=== PATIENT | female | born 1930 | race Caucasian/White ===

== ENCOUNTER 2016-08-03 16:18 | Emergency (ER) | payer MEDICARE, BC ==
[2016-08-03] MEDS ORDERED: SODIUM CHLORIDE 0.9% 500 ML IV ONE ×3 (17:19→19:45)
[2016-08-03] MEDS ORDERED: METOPROLOL 5 MG/5 ML VIAL IVP STA (17:20)
[2016-08-03] MEDS ORDERED: METOPROLOL 5 MG/5 ML VIAL IVP ONE (17:41)
[2016-08-03] MEDS ORDERED: METOPROLOL TARTRATE 50 MG TABLET PO STA (19:04)
== END 2016-08-03 20:50 | disposition home or self-care (01) ==
DX: I48.0 Paroxysmal atrial fibrillation (principal); J06.9 Acute upper respiratory infection, unspecified; I10 Essential (primary) hypertension; E03.9 Hypothyroidism, unspecified; Z79.82 Long term (current) use of aspirin
CPT/HCPCS: 36415; 71010; 80053; 83690; 83735; 83880; 85025; 93005; 93010; 96361; 96374; 99284; A9270

== ENCOUNTER 2016-08-26 11:14 | Outpatient (CLI) | payer MEDICARE, BC | END 2016-08-26 11:15 | disposition home or self-care (01) | DX: I48.91 Unspecified atrial fibrillation (principal) ==

== ENCOUNTER 2016-09-29 13:10 | Outpatient (CLI) | payer MEDICARE, BC | END 2016-09-29 13:11 | disposition home or self-care (01) | DX: N18.9 Chronic kidney disease, unspecified (principal) ==

== ENCOUNTER 2016-10-14 13:27 | Emergency (ER) | payer MEDICARE, BC ==
[2016-10-14] MEDS ORDERED: COLCHICINE 0.6 MG TABLET PO STA (14:57)
== END 2016-10-14 15:15 | disposition home or self-care (01) ==
DX: M10.9 Gout, unspecified (principal); I11.0 Hypertensive heart disease with heart failure; I50.9 Heart failure, unspecified; E78.00 Pure hypercholesterolemia, unspecified; E03.9 Hypothyroidism, unspecified; I48.91 Unspecified atrial fibrillation; K21.9 Gastro-esophageal reflux disease without esophagitis; Z79.82 Long term (current) use of aspirin; Z86.73 Personal history of transient ischemic attack (TIA), and cerebral infarction without residual deficits
CPT/HCPCS: 73630; 99283; A9270

== ENCOUNTER 2017-02-25 09:16 | Inpatient (IN) | payer MEDICARE, BC ==
[2017-02-25] MEDS ORDERED: SODIUM CHLORIDE FLUSH 0.9% 10 ML SYRINGE IVP ONE (09:48)
[2017-02-25] MEDS ORDERED: SODIUM CHLORIDE 0.9% 1,000 ML IV ONE ×2 (09:54→11:13)
[2017-02-25] MEDS ORDERED: METOPROLOL 5 MG/5 ML VIAL IVP STA (09:54)
[2017-02-25] MEDS ORDERED: SODIUM CHLORIDE 0.9% 250 ML IV ONE (10:00)
[2017-02-25 10:02] LABS: BASOPHILS % (AUTO) 0.5 %; EOSINOPHILS # (AUTO) 0.2 10^3/uL (0.0-0.7); EOSINOPHILS % (AUTO) 1.7 %; HCT - HEMATOCRIT 41.2 % (37.0-47.0); HGB - HEMOGLOBIN 13.9 g/dL (12.0-16.0); LYMPHOCYTES # (AUTO) 0.5 10^3/uL (1.5-3.5); LYMPHOCYTES % (AUTO) 5.6 %; MEAN CORPUSCULAR HEMOGLOBIN 34.2 pg (27.0-31.0); MEAN CORPUSCULAR HGB CONC 33.6 g/dL (32.0-36.0); MEAN CORPUSCULAR VOLUME 101.8 fL (81.0-99.0); MEAN PLATELET VOLUME 7.7 fL (7.9-10.8); MONOCYTES # (AUTO) 1.1 10^3/uL (0.0-1.0); MONOCYTES % (AUTO) 11.8 %; NEUTROPHILS # (AUTO) 7.5 10^3/uL (1.5-6.6); NEUTROPHILS % (AUTO) 80.4 %; NUCLEATED RED BLOOD CELLS AUTO 0.1 /100WBC; RED BLOOD COUNT 4.05 10^6/uL (4.20-5.40); RED CELL DISTRIBUTION WIDTH 14.5 % (12.0-15.0); UNCORRECTED WHITE BLOOD COUNT 9.3 x10^3/uL; WHITE BLOOD COUNT 9.3 x10^3/uL (4.8-10.8)
[2017-02-25 10:14] LABS: BILIRUBIN,TOTAL 0.9 mg/dL (0.2-1.0); CALCIUM 9.4 mg/dL (8.5-10.3); CREATININE 1.3 mg/dL (0.4-1.0); POTASSIUM 4.7 mmol/L (3.5-5.0); TOTAL PROTEIN 7.5 g/dL (6.7-8.2)
--- NOTE | 2017-02-25 10:34 | ED Physician Documentation ---
PD HPI DYSPNEA - Stated complaint Stated Complaint: SOA - Chief complaint Chief Complaint: Resp - History obtained from History obtained from: Patient, EMS - History of Present Illness Timing - onset: How many weeks ago (1) Timing - onset during: Exertion Timing - details: Still present Worsened by: Exertion Associated symptoms: No: Chest pain / discomfort Similar symptoms before: Diagnosis (History of congestive heart failure and atrial fibrillation.) - Additional information Additional information: The patient is an 86-year-old female who presents with shortness of breath that has been gradually getting worse over the past week. It is worse when walking. She denies chest pain, cough, or fever. She denies orthopnea. She has history of CHF and atrial fibrillation. She takes one baby aspirin daily. She reports a history of similar symptoms when hospitalized for congestive heart failure in May 2016. She reports a similar symptoms also in July 2016. Social history is significant for the patient living by herself. Review of her medical record reveals cardiac echo in May 2016, revealing mitral valve insufficiency with severe pulmonary hypertension. Review of Systems Constitutional: denies: Fever Ears: denies: Tinnitus/ringing Nose: denies: Congestion Throat: denies: Sore throat Cardiac: denies: Chest pain / pressure Respiratory: reports: Dyspnea. denies: Cough GI: denies: Abdominal Pain, Nausea, Vomiting : denies: Dysuria Skin: denies: Rash Musculoskeletal: denies: Back pain, Extremity swelling Neurologic: denies: Focal weakness, Numbness, Headache PD PAST MEDICAL HISTORY - Past Medical History Past Medical History: Yes Cardiovascular: Congestive heart failure, Hypertension, High cholesterol, Atrial fibrillation, Valve disorder (Mitral valve insufficiency) Respiratory: Shortness of breath, Other (Pulmonary hypertension) Neuro: CVA, Head injury, Fainting Endocrine/Autoimmune: HyPOthyroidism GI: GERD : None HEENT: Chronic sinusitis Psych: None Musculoskeletal: Osteoarthritis Derm: None - Past Surgical History Past Surgical History: Yes Ortho: Hip replacement - Present Medications Home Medications: Ambulatory Orders Medication Instructions Recorded Confirmed Aspirin [Aspir 81] 81 mg PO DAILY 09/20/14 02/25/17 Esomeprazole Magnesium [Nexium] 40 mg PO DAILY 09/20/14 02/25/17 Levothyroxine [Synthroid] 50 mcg PO DAILY 09/20/14 02/25/17 Methotrexate 5 mg PO Q7D 09/20/14 02/25/17 Simvastatin 40 mg PO QPM 09/20/14 02/25/17 Furosemide 40 mg PO DAILY 08/03/16 02/25/17 Spironolactone 12.5 mg PO DAILY 08/03/16 02/25/17 Verapamil HCl [Verapamil ER] 240 mg PO DAILY 10/14/16 02/25/17 Metoprolol Tartrate [Lopressor] 100 mg PO BID 02/25/17 02/25/17 - Allergies Allergies/Adverse Reactions: Allergies Allergy/AdvReac Type Severity Reaction Status Date / Time No Known Drug Allergies Allergy Verified 02/25/17 09:30 - Social History Does the pt smoke?: No Smoking Status: Never smoker Does the pt drink ETOH?: Yes Does the pt have substance abuse?: No - Immunizations Immunizations are current?: Yes - POLST Patient has POLST: No PD ED PE NORMAL - Vitals Vital signs reviewed: Yes (Hypotensive with a blood pressure of 88/54.) - General General: Alert and oriented X 3, Well developed/nourished - HEENT HEENT: Atraumatic, EOMI, Pharynx benign - Neck Neck: Supple, no meningeal sign, No adenopathy, No JVD - Cardiac Cardiac: Other (Rapid rate, irregular rhythm, with 1/6 murmur.) - Respiratory Respiratory: Clear bilaterally, Other (Low pulse oximetry 88% on room air. It improves to 94% on 2 L supplemental oxygen.) - Abdomen Abdomen: Soft, Non tender - Back Back: No CVA TTP - Derm Derm: No rash - Extremities Extremities: No edema, No calf tenderness / cord - Neuro Neuro: Alert and oriented X 3, No motor deficit, No sensory deficit Results - Vitals Vitals: Vital Signs - 24 hr 02/25/17 02/25/17 02/25/17 09:20 09:50 10:20 Temperature 36.2 C L Heart Rate 60 86 84 Respiratory 24 Rate Blood Pressure 88/45 L 92/57 L O2 Saturation 100 95 95 02/25/17 02/25/17 02/25/17 10:53 11:36 12:24 Temperature Heart Rate 80 72 Respiratory 16 16 16 Rate Blood Pressure 83/48 L 104/62 93/63 O2 Saturation 93 97 96 02/25/17 02/25/17 02/25/17 14:52 18:00 18:20 Temperature Heart Rate 77 107 H 121 H Respiratory 24 22 Rate Blood Pressure 110/67 139/71 H 118/89 H O2 Saturation 94 92 94 Oxygen O2 Source Nasal cannula - EKG (time done) 09:29 Rate: Rate (enter#) Rhythm: Atrial flutter, Wide complex tachycardia [place]: LAD Intervals: LBBB Ischemia: Other (J-point elevation) Compare to prior EKG: Unchanged from prior EKG Computer interpretation: Disagree with computer - Labs Labs: Laboratory Tests 02/25/17 02/25/17 02/25/17 07:45 09:45 09:45 WBC 9.3 RBC 4.05 L Hgb 13.9 Hct 41.2 MCV 101.8 H MCH 34.2 H MCHC 33.6 RDW 14.5 Plt Count 344 MPV 7.7 L Neut # 7.5 H Lymph # 0.5 L [place] # 1.1 H Eos # 0.2 Baso # 0.0 Absolute Nucleated RBC 0.01 Nucleated RBCs 0.1 D-Dimer Sodium 134 L Potassium 4.7 Chloride 96 L Carbon Dioxide 25 Anion Gap 13.0 BUN 33 H Creatinine 1.3 H Estimated GFR (MDRD) 39 L Glucose 111 H Calcium 9.4 Total Bilirubin 0.9 AST 21 ALT 12 Alkaline Phosphatase 68 Troponin I B-Natriuretic Peptide 611 H Total Protein 7.5 Albumin 3.7 Globulin 3.8 Albumin/Globulin Ratio 1.0 Lipase 49 TSH Urine Color Urine Clarity Urine pH Ur Specific [place] Urine Protein Urine Glucose (UA) Urine Ketones Urine Occult Blood Urine Nitrite Urine Bilirubin Urine Urobilinogen Ur Leukocyte Esterase Urine RBC Urine WBC Ur Squamous Epith Cells Urine Bacteria Ur Microscopic Review Urine Culture Comments 02/25/17 02/25/17 02/25/17 09:45 09:45 09:45 WBC RBC Hgb Hct MCV MCH MCHC RDW Plt Count MPV Neut # Lymph # [place] # Eos # Baso # Absolute Nucleated RBC Nucleated RBCs D-Dimer 216.2 Sodium Potassium Chloride Carbon Dioxide Anion Gap BUN Creatinine Estimated GFR (MDRD) Glucose Calcium Total Bilirubin AST ALT Alkaline Phosphatase Troponin I < 0.04 B-Natriuretic Peptide Total Protein Albumin Globulin Albumin/Globulin Ratio Lipase TSH 2.72 Urine Color Urine Clarity Urine pH Ur Specific [place] Urine Protein Urine Glucose (UA) Urine Ketones Urine Occult Blood Urine Nitrite Urine Bilirubin Urine Urobilinogen Ur Leukocyte Esterase Urine RBC Urine WBC Ur Squamous Epith Cells Urine Bacteria Ur Microscopic Review Urine Culture Comments 02/25/17 15:00 WBC RBC Hgb Hct MCV MCH MCHC RDW Plt Count MPV Neut # Lymph # [place] # Eos # Baso # Absolute Nucleated RBC Nucleated RBCs D-Dimer Sodium Potassium Chloride Carbon Dioxide Anion Gap BUN Creatinine Estimated GFR (MDRD) Glucose Calcium Total Bilirubin AST ALT Alkaline Phosphatase Troponin I B-Natriuretic Peptide Total Protein Albumin Globulin Albumin/Globulin Ratio Lipase TSH Urine Color YELLOW Urine Clarity CLEAR Urine pH 5.5 Ur Specific [place] <=1.005 Urine Protein NEGATIVE Urine Glucose (UA) NEGATIVE Urine Ketones NEGATIVE Urine Occult Blood NEGATIVE Urine Nitrite NEGATIVE Urine Bilirubin NEGATIVE Urine Urobilinogen 0.2 (NORMAL) Ur Leukocyte Esterase TRACE H Urine RBC None Seen Urine WBC 0-3 Ur Squamous Epith Cells MANY Squamous H Urine Bacteria Few Ur Microscopic Review INDICATED Urine Culture Comments NOT INDICATED - Rads (name of study) 1-view CXR Radiology: Prelim report reviewed, EMP read contemporaneously, See rad report ( No definite acute abnormality of the chest.) PD MEDICAL DECISION MAKING - ED course Complexity details: reviewed old records, reviewed results, re-evaluated patient , considered differential, d/w patient, d/w physician practice consultant ED course: The patient's presentation is significant for dyspnea with low pulse oximetry, most likely due to to pulmonary hypertension with congestive heart failure. When she initially presented her lung sounds were clear and with an elevated BUN of 33 with a creatinine of 1.3, and no pedal edema, I felt dehydration was more likely, especially given that she was tachycardic and hypotensive. Normal saline bolus of 250 mL was administered IV, and she felt slightly improved. An additional liter of normal saline was administered IV over a period of one hour , causing her dyspnea to worsen, and repeat auscultation of her lungs to reveal faint crackles at the bases. Subsequently a BNP came back elevated at 611. Given her history of atrial fibrillation without anticoagulation, pulmonary embolus was considered. However her d-dimer is normal at 216. CT pulmonary angiogram was not performed because of the patient's renal insufficiency. Lasix 40 mg administered IV, resulting in diaphoresis, with 3 times up to the bedside commode over the next 45 minutes. She remained dyspneic, with pulse oximetry in the high 80s on room air. I discussed her condition with Dr. Orellana, who admitted her for further evaluation and treatment. Departure - Departure Disposition: [facility] DC/Xfer Clinical Impression: Pulmonary hypertension Congestive heart failure Qualifiers: Congestive heart failure type: unspecified congestive heart failure type Congestive heart failure chronicity: acute on chronic Qualified Code(s): I50.9 - Heart failure, unspecified Atrial fibrillation Qualifiers: Atrial fibrillation type: chronic Qualified Code(s): I48.2 - Chronic atrial fibrillation Condition: Stable Discharge Date/Time: 02/25/17 19:17
--- NOTE | 2017-02-25 11:10 | XRAY Preliminary Report ---
Exam: XR Chest 1 View IMPRESSION: No definite acute abnormality of the chest. [facility] SITE ID: [id number]
--- NOTE | 2017-02-25 11:12 | XRAY Report ---
EXAM: CHEST RADIOGRAPHY EXAM DATE: 02/25/2017 10:36 AM. CLINICAL HISTORY: Dyspnea. COMPARISON: Single view 08/03/2016. TECHNIQUE: 1 view. FINDINGS: Lungs/Pleura: No definite acute or focal infiltrate or ladi pulmonary edema. No pleural effusion or pneumothorax. Mediastinum: Within exam limitations, cardiomediastinal contour is normal. Other: Right shoulder degenerative change and acromiohumeral space narrowing, compatible rotator cuff pathology or tear, without change. IMPRESSION: No definite acute abnormality of the chest. [facility] Referring Provider Line: [phone] SITE ID: [id number]
[2017-02-25] MEDS ORDERED: MAG HYDROX/AL HYDROX/SIMETH 30 ML UDC PO STA (13:58)
[2017-02-25 15:27] LABS: BILIRUBIN,URINE NEGATIVE (NEGATIVE); PH,URINE 5.5 PH (5.0-7.5)
[2017-02-25 15:38] LABS: UA w/ MICROSCOPIC CHARGE YES
[2017-02-25 15:40] LABS: UR CULTURE IF IND NOT INDICATED; WBC,URINE 0-3 /HPF (0-5)
[2017-02-25] MEDS ORDERED: FUROSEMIDE 40 MG/4 ML VIAL IVP STA (17:07)
[2017-02-25] MEDS ORDERED: FUROSEMIDE 40 MG/4 ML VIAL ONE (17:16)
[2017-02-25] MEDS ORDERED: ONDANSETRON 4 MG/2 ML VIAL IVP PRN (18:29)
[2017-02-25] MEDS ORDERED: PROCHLORPERAZINE 10 MG/2 ML VIAL IVP PRN (18:29)
[2017-02-25] MEDS ORDERED: MORPHINE 2 MG/ML CARPUJECT IVP PRN (18:29)
[2017-02-25] MEDS ORDERED: ZOLPIDEM 5 MG TABLET PO PRN (18:29)
[2017-02-25] MEDS: ACETAMINOPHEN 325 MG TABLET PO PRN (19:52)
[2017-02-25] MEDS ORDERED: METOPROLOL TARTRATE 50 MG TABLET PO SCH ×2 (21:00)
--- NOTE | 2017-02-25 21:14 | HISTORY & PHYSICAL EXAMINATION ---
Chief Complaint - Chief Complaint Chief Complaint: shortness of breath History of Present Illness - Admitted From Admitted From:: Emergency Department - History Obtained From Records Reviewed: ED report, previous H&P, prior echocardiogram History obtained from: Patient - History of Present Illness HPI Comment/Other: 86-year-old female with past medical history heart failure, atrial fibrillation , and pulmonary hypertension. She presented to the emergency department today because of a lack of energy for the past 2 weeks and weakness in her legs. Over the past week she has noticed increasing shortness of breath with activity; she must stop and rest for 10-15 minutes to "catch her breath" after walking from her bedroom to the kitchen which is "across the house." She is unable to perform her daily chores without resting which she previously had no issues completing. She does report 1-2 episodes where she felt dizzy and had to grab onto a chair to balance herself otherwise she denies chest pain, diaphoresis, cough, lightheadedness, or orthopnea. An echocardiogram from 07/28/2015 was reviewed and showed a normal left ventricular size with preserved ejection fraction of 65%; severe diastolic dysfunction with a severely dilated left atrium, severe pulmonary hypertension ( PASP 75 mm Hg) and mitral insufficiency. Her expanding machine operator is Dr. Barron; unable to review most recent visit at this time. In the emergency department she was hypotensive with a systolic blood pressure of 84; she received an initial 250 ml normal saline bolus with slight improvement in her shortness of breath; a subsequent liter of normal saline was given over an hour which worsened her shortness of breath, she developed faint crackles in her lower lung still and room air oxygen saturations were in the high 80's. Her subsequent BtNP was 611 and she received 40 mg IV furosemide with good response (up to bedside commode x 3). Pulmonary embolus was considered per her shortness of breath and atrial fibrillation without anticoagulation; d-dimer was 216.2. Upon history and physical examination she had a fever 38.8 without an obvious source of infection. Blood cultures and lactic acid were drawn. She denies fevers or chills at home, no urinary symptoms, cough, abdominal pain, nausea/ vomiting, or diarrhea. Urinalysis and chest xray were negative. She reports gout to her right great toe; assessed toe for gout versus septic arthritis; region with mild tenderness to palpation, no swelling or redness. She reports decreased appetite and subsequent 25 lb weight loss since May 2016; considered malignancy: abdominal/pelvic CT scan if continued fevers during hospitalization otherwise this can be completed as an outpatient if further concern. During hospitalization she will be monitored overnight on observation status. Chest CT utilizing the interstitial lung disease protocol will be completed to examine for further causes of her pulmonary hypertension and an echocardiogram. At this point it appears her acute on chronic heart failure may be iatrogenic from the fluids administered. No further intravenous fluids will be administered and response from the 40 mg intravenous furosemide will be monitored. Upon discharge and review of echocardiogram it will be prudent to call and discuss her hospitalization with her PCP, Dr. Easley to determine if her goals of care have been discussed or if there is a previously established treatment plan for worsening symptoms. Review of Systems - Constitutional Constitutional: reports: Fatigue (noticed over the past 2 weeks.), Fever (She denies fevers at home, but has a temperature of 38.2; she feels "hot" but denies feeling like she has a fever at this time.), Weakness ("In my legs" for the past 2 weeks.), Poor appetite (Decreased appetite since May 2016.), Weight loss (Lost 25 lbs since May 2016.). denies: Chills, Malaise, Diaphoresis - Eyes Eyes: reports: Other (Appointment with opthamologist on Tuesday.). denies: Pain , Blurred vision, Spots in vision, Vision loss - Ears, Nose & Throat Ears, Nose & Throat: reports: Postnasal drainage. denies: Ear pain, Hearing loss, Vertigo, Dentures, Sore throat, Mouth lesions, Dental decay (attributes to seasonal allergies.), Dental pain - Cardiovascular Cariovascular: reports: Irregular heart rate, Lightheadedness (x 2 when she had to grab onto a chair.), Exertional dyspnea, Decr. exercise tolerance (x 2 weeks. ). denies: Palpitations, Chest pain, Edema, Syncope, Orthopnea - Respiratory Respiratory: reports: Cough (occasional cough she attributes to nasal drainage from her seasonal allergies.). denies: Sputum production, Wheezing, Orthopnea, SOB at rest - Gastrointestinal Gastrointestinal: reports: Constipation (normally has hard stools every 2-3 days.). denies: Abdominal pain, Abdominal distention, Diarrhea, Change in bowel habits, Nausea, Vomiting - Genitourinary Genitourinary: denies: Dysuria, Frequency, Urgency, Incontinence, Flank pain - Musculoskeletal Musculoskeletal: reports: Gout (Right great toe), Joint pain (Right shoulder - increases with use.). denies: Muscle pain, Back pain - Integumentary Integumentary: denies: Rash, Lesions, Dryness - Neurological Neurological: reports: Memory problems (hard time recalling names). denies: Focal weakness, Headache, Dizziness, Numbness - Psychiatric Psychiatric: denies: Depression, Anxiety - Hematologic/Lymphatic Hematologic/Lymphatic: denies: Anemia, Bruising History - Past Medical History Cardiovascular: reports: Congestive heart failure (with admission 2015) , Hypertension, High cholesterol, Atrial flutter, Atrial fibrillation (first diagnosed July 2016 with a visit to the ER for cough/sob/irregular heart rate ), Valve disorder (Mitral valve insufficiency) Respiratory: reports: Shortness of breath (with no formal diagnosis of COPD made yet), Other (Pulmonary hypertension) Neuro: reports: CVA (no residual deficit), Head injury (approx 5 years ago; fell and increased confusion over a week, a bleed; sent to [facility].) Endocrine/Autoimmune: reports: HyPOthyroidism GI: reports: [employer]IST: reports: Other () : reports: None HEENT: reports: Chronic sinusitis Psych: reports: None Musculoskeletal: reports: Osteoarthritis Derm: reports: None MRSA Hx?: No - Past Surgical History Ortho: reports: Hip replacement (Bilateral), Carpal Tunnel surgery (Bilateral) Neuro: reports: Other - Family & Social History Family History Comment/Other: Father 78; lung cancer Mother 90; stroke Sister alive 82; ID, bypass, parkinsons Brother ; lung issues 2 Sons alive; healthy Daughter alive; brain tumor - removed no recurrence Living arrangement: At home Living Situation: Alone Social History Notes: Patient lives alone in a one-story house in [place] since 1993. She retired earlier than expected (1986) to take care of her after he suffered a debilitating stroke. He in 1993. 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 She raised her 3 children (2 boys and one girl) in [place] and moved to [facility] with her in 1988. Her children and 6 grandchildren live in [place], [facility], and [place] and she talks with them on the phone frequently and sees them more often in the winter. She lives in a supportive community where "they all take care of each other," including one neighbor driving her to the hospital and another one, Vivienne calling her while H&P is being completed. She is able to complete all IADLs and ADLs and hires individuals to do housekeeping and yardwork. She meets with her group of friends weekly for dinner and they play cards once a month. - Substance History Use: Uses substance without health or social issues: Tobacco (Smoked 1 ppd x 42 years, started age 20, quit at 62.), Alcohol (Drinks 1-4 daily; vodka.) Dependence: Experiences withdrawal or developed tolerances: NONE Tobacco Details: Cigarettes - POLST Patient has POLST: No POLST Status: DNR Meds/Allgy - Home Medications Home Medications: Ambulatory Orders Medication Instructions Recorded Confirmed Aspirin [Aspir 81] 81 mg PO DAILY 09/20/14 02/25/17 Esomeprazole Magnesium [Nexium] 40 mg PO DAILY 09/20/14 02/25/17 Levothyroxine [Synthroid] 50 mcg PO DAILY 09/20/14 02/25/17 Methotrexate 5 mg PO Q7D 09/20/14 02/25/17 Simvastatin 40 mg PO QPM 09/20/14 02/25/17 Furosemide 40 mg PO DAILY 08/03/16 02/25/17 Spironolactone 12.5 mg PO DAILY 08/03/16 02/25/17 Verapamil HCl [Verapamil ER] 240 mg PO DAILY 10/14/16 02/25/17 Metoprolol Tartrate [Lopressor] 100 mg PO BID 02/25/17 02/25/17 - Allergies Allergies/Adverse Reactions: Allergies Allergy/AdvReac Type Severity Reaction Status Date / Time No Known Drug Allergies Allergy Verified 02/25/17 09:30 Exam - Vital Signs Vital Signs: Vital Signs x48h Temp Pulse Resp BP Pulse Ox 02/25/17 19:51 38.8 C H 02/25/17 19:24 38.2 C H 100 16 94/39 L 92 Vital Signs - 8 hr 02/25/17 02/25/17 02/25/17 18:00 18:20 19:24 Temperature 38.2 C H Heart Rate 107 H 121 H Heart Rate [ 100 Brachial] Respiratory 24 22 16 Rate Blood Pressure 139/71 H 118/89 H Blood Pressure 94/39 L [Right Radial artery] O2 Saturation 92 94 92 02/25/17 02/25/17 02/25/17 19:51 21:30 21:55 Temperature 38.8 C H 37.0 C Heart Rate Heart Rate [ 55 L Brachial] Respiratory 20 Rate Blood Pressure 85/62 L Blood Pressure 82/62 L [Right Radial artery] O2 Saturation 96 02/25/17 23:56 Temperature 36.5 C Heart Rate Heart Rate [ 101 H Brachial] Respiratory 18 Rate Blood Pressure Blood Pressure 89/57 L [Right Radial artery] O2 Saturation 94 - Physical Exam General Appearance: positive: No acute distress, Alert (Speaking in full sentences without difficulty or shortness of breath. Well-dressed and groomed.) , Other Eyes Bilateral: positive: Normal inspection, PERRL, EOMI, Conjunctivae nml ENT: positive: ENT inspection nml, Pharynx nml, No signs of dehydration. negative: Oral lesions, Dry mucous membranes Neck: positive: Nml inspection, No JVD, Trachea midline Respiratory: positive: Chest non-tender, No respiratory distress, Breath sounds nml (all lung still.). negative: Wheezes, Rales, Rhonchi Cardiovascular: positive: Irregularly irregular, Decreased pulse(s) (bilateral pedal and pre-tibial.). negative: JVD present Peripheral Pulses: positive: 2+ (radial), 1+ (pedal and pretibial.) Abdomen: positive: Non-tender, No organomegaly, Nml bowel sounds, No distention. negative: Tenderness, Rebound Back: positive: Nml inspection Skin: positive: Color nml, No rash, Warm, Dry. negative: Diaphoresis, Pallor Extremities: positive: Non-tender, Full ROM, Nml appearance, No pedal edema. negative: Calf tenderness, Joint swelling Neurologic/Psychiatric: positive: Oriented x3, CN's nml (2-12), Motor nml, Sensation nml, Mood/affect nml Conclusion/Plan - Problem List (1) Heart failure, diastolic, acute on chronic Conclusion/Plan: Acute on chronic diastolic heart failure with preserved ejection fraction; patient received 1,250 mililiters of normal saline for hypotension (SBP 84) in emergency department and reported increased shortness of breath. BtNP returned at 611; previous BtNP in 07/2016 was 269. Exacerbation of heart failure considered to be iatrogenic at this time. Patient received 40 mg IV furosemide in ED. Reviewed Echocardiogram from 05/18/2016 that demonstrated a normal left ventricular size with LEF 65 with severe diastolic dysfunction and a severely dilated left atrium. Patient's expanding machine operator is Dr. Barron; attempted to review latest clinic visit but unable at this time. * Echocardiogram in morning; compare to 05/18/2016. * Monitor diuresis from 40 mg IV furosemide given in ED. * No further IV fluids overnight. * Continue home medications. * Monitor intake and output. * Vital signs q8h. (2) Hypotension Conclusion/Plan: Hypotension with systolic blood pressure 84. Patient is on multiple medications for her heart failure that contribute to hypotension: metoprolol, furosemide, spironalactone, and verapamil. She has been asymptomatic and her shortness of breath was exacerbated with fluid bolus; BtNP 611. No further fluid administration indicated at this time. * Hold metoprolol for systolic blood pressure < 90 and heart rate < 60. * Continue other home medications. * Vital signs q8h. * Consider changing dose of lasix from 40 mg po daily to alternating with 20 mg/ 40 mg. Qualifiers: Hypotension type: unspecified hypotension type Qualified Code(s): I95.9 - Hypotension, unspecified (3) Pulmonary hypertension Conclusion/Plan: Patient's pulmonary hypertension is secondary to her severe diastolic heart dysfunction; WHO Group 2 Pulmonary Hypertension; causing limitations in her daily activities. Echocardiogram from 05/18/2016 demonstrated severe pulmonary hypertension with PASP 75 mm Hg. She has acute on chronic shortness of breath worsening over the past 2 weeks. * Chest CT utilizing interstitial lung disease protocol to make sure pulmonary fibrosis is not a contributing factor * Echocardiogram - compare to 07/28/2015. * Monitor diuresis from 40 mg intravenous furosemide given in ED. * Continue on home medications for heart failure. * Low sodium diet. * Contact Dr. Easley; patient's PCP at time of discharge to review plan of care. (4) Fever Conclusion/Plan: Fever present upon history and physical assessment not in the Emergency Room; 38.8, patient denies fevers at home although does not "feel like she has a fever ," during this encounter. She reports decreased appetite and a 25 lb weight loss since May 2016. Denies abdominal pain, n/v/d, cough, urinary symptoms or recent dental work (in consideration of endocarditis). Colonoscopy completed several years ago and she reports it was normal. Unable to determine clear cause of her fever at this time, she does not meet SIRS or Sepsis criteria at this time. Her WBC is 9.3 with no left shift. * Blood cultures completed: monitor for growth. * Lactic acid completed - 1.2 * Repeat CBC in AM. * Urinalysis reviewed: negative for UA. * Chest xray reviewed: no acute abnormality of the chest. * Assessed right great toe for gout versus septic arthritis: no swelling or redness, very mildly tender to palpation. * Chest CT ordered for pulmonary hypertension and will let us know if there is a hidden infiltrate * Consideration of malignancy with fever, decreased appetite and weight loss over the past 8 months; possible need for abd/pelvis CT if fevers persist in the outpatient setting. Review with PCP at discharge. * Endocarditis is a low probability. No recent dental work, doesn't have central line access, and no harsh murmur on exam * Tylenol 650 mg orally every 4 hours as needed for fever. * Vital signs every 8 hours. Qualifiers: Fever type: unspecified Qualified Code(s): R50.9 - Fever, unspecified (5) Atrial fibrillation Conclusion/Plan: Chronic atrial fibrillation; patient takes 81 mg of aspirin daily. No anticoagulation therapy d/t history of a head injury resulting in a bleed approximately 5 years ago that resulted in her being transferred to [facility]. She is rate controlled with metoprolol. * Telemetry. * Continue home medications. 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 Other causes considered hypothyroidism9 , TSH today 2.72, poor nutrition, alcohol use is 1-4 drinks a day, B12 level was normal in 2016, and myelodysplasia ( but no anemia present with macrocytosis chronic). (7) Chronic kidney disease (CKD) Conclusion/Plan: Chronic, stable kidney disease; creatinine 1.3 today has been 1.6 previously. eGFR today 39. * Repeat BMP in AM. * Continue home medications. Qualifiers: Chronic kidney disease stage: stage 3 (moderate) Qualified Code(s): N18.3 - Chronic kidney disease, stage 3 (moderate) (8) DNR (do not resuscitate) Conclusion/Plan: Patient has a living will and she clearly states DNR status. (9) DVT prophylaxis Conclusion/Plan: Lovenox 30 meq subcutaneously once daily. - Lab Results Lab results reviewed: Yes Fish Bones: 02/25/17 09:45 02/25/17 09:45 Other Lab Results: Laboratory Last Values WBC 9.3 x10^3/uL (4.8-10.8) 02/25/17 09:45 RBC 4.05 10^6/uL (4.20-5.40) L 02/25/17 09:45 Hgb 13.9 g/dL (12.0-16.0) 02/25/17 09:45 Hct 41.2 % (37.0-47.0) 02/25/17 09:45 MCV 101.8 fL (81.0-99.0) H 02/25/17 09:45 MCH 34.2 pg (27.0-31.0) H 02/25/17 09:45 MCHC 33.6 g/dL (32.0-36.0) 02/25/17 09:45 RDW 14.5 % (12.0-15.0) 02/25/17 09:45 Plt Count 344 10^3/uL (130-450) 02/25/17 09:45 MPV 7.7 fL (7.9-10.8) L 02/25/17 09:45 Neut # 7.5 10^3/uL (1.5-6.6) H 02/25/17 09:45 Lymph # 0.5 10^3/uL (1.5-3.5) L 02/25/17 09:45 Bremer # 1.1 10^3/uL (0.0-1.0) H 02/25/17 09:45 Eos # 0.2 10^3/uL (0.0-0.7) 02/25/17 09:45 Baso # 0.0 10^3/uL (0.0-0.1) 02/25/17 09:45 Absolute Nucleated RBC 0.01 x10^3/uL 02/25/17 09:45 Nucleated RBCs 0.1 /100WBC 02/25/17 09:45 D-Dimer 216.2 ng/mL (200.0-255.0) 02/25/17 09:45 Sodium 134 mmol/L (135-145) L 02/25/17 09:45 Potassium 4.7 mmol/L (3.5-5.0) 02/25/17 09:45 Chloride 96 mmol/L (101-111) L 02/25/17 09:45 Carbon Dioxide 25 mmol/L (21-32) 02/25/17 09:45 Anion Gap 13.0 (6-13) 02/25/17 09:45 BUN 33 mg/dL (6-20) H 02/25/17 09:45 Creatinine 1.3 mg/dL (0.4-1.0) H 02/25/17 09:45 Estimated GFR (MDRD) 39 (>89) L 02/25/17 09:45 Glucose 111 mg/dL (70-100) H 02/25/17 09:45 Lactic Acid 1.2 mmol/L (0.5-2.2) 02/25/17 20:43 Calcium 9.4 mg/dL (8.5-10.3) 02/25/17 09:45 Total Bilirubin 0.9 mg/dL (0.2-1.0) 02/25/17 09:45 AST 21 IU/L (10-42) 02/25/17 09:45 ALT 12 IU/L (10-60) 02/25/17 09:45 Alkaline Phosphatase 68 IU/L (42-121) 02/25/17 09:45 Troponin I < 0.04 ng/mL (<0.49) 02/25/17 09:45 B-Natriuretic Peptide 611 pg/mL (5-100) H 02/25/17 07:45 Total Protein 7.5 g/dL (6.7-8.2) 02/25/17 09:45 Albumin 3.7 g/dL (3.2-5.5) 02/25/17 09:45 Globulin 3.8 g/dL (2.1-4.2) 02/25/17 09:45 Albumin/Globulin Ratio 1.0 (1.0-2.2) 02/25/17 09:45 Lipase 49 U/L (22-51) 02/25/17 09:45 TSH 2.72 uIU/mL (0.34-5.60) 02/25/17 09:45 Urine Color YELLOW 02/25/17 15:00 Urine Clarity CLEAR (CLEAR) 02/25/17 15:00 Urine pH 5.5 PH (5.0-7.5) 02/25/17 15:00 Ur Specific [place] <=1.005 (1.002-1.030) 02/25/17 15:00 Urine Protein NEGATIVE mg/dL (NEGATIVE) 02/25/17 15:00 Urine Glucose (UA) NEGATIVE mg/dL (NEGATIVE) 02/25/17 15:00 Urine Ketones NEGATIVE mg/dL (NEGATIVE) 02/25/17 15:00 Urine Occult Blood NEGATIVE (NEGATIVE) 02/25/17 15:00 Urine Nitrite NEGATIVE (NEGATIVE) 02/25/17 15:00 Urine Bilirubin NEGATIVE (NEGATIVE) 02/25/17 15:00 Urine Urobilinogen 0.2 (NORMAL) E.U./dL (NORMAL) 02/25/17 15:00 Ur Leukocyte Esterase TRACE (NEGATIVE) H 02/25/17 15:00 Urine RBC None Seen /HPF (0-5) 02/25/17 15:00 Urine WBC 0-3 /HPF (0-5) 02/25/17 15:00 Ur Squamous Epith Cells MANY Squamous (<= Few) H 02/25/17 15:00 Urine Bacteria Few /HPF (None Seen) 02/25/17 15:00 Ur Microscopic Review INDICATED 02/25/17 15:00 Urine Culture Comments NOT INDICATED 02/25/17 15:00 - Diagnostic Imaging Results Diagnostic Imaging Results Comments: 1 View Chest x-ray read by radiologist: No definite acute abnormality of the chest. - EKG Results EKG Interpreted Independently: Yes EKG Comparison: Unchanged from prior EKG (Atrial fibrillation, left bundle branch block, ventricular rate 70.) Issues/Core Measures - Anticipated LOS Anticipated Stay Length: Less than 2 midnights - DVT/VTE - Prophylaxis VTE/DVT Device ordered at admit?: No VTE/DVT Prophylaxis med ordered at admit?: Yes
[2017-02-25] MEDS: SODIUM CHLORIDE FLUSH 0.9% 10 ML SYRINGE IVP SCH (21:55)
--- NOTE | 2017-02-25 22:50 | CT Report ---
EXAM: CT CHEST HIGH-RESOLUTION WITHOUT CONTRAST EXAM DATE: 02/25/2017 09:53 PM. CLINICAL HISTORY: Pulmonary hypertension, dyspnea. COMPARISON: None. TECHNIQUE: High-resolution CT was performed utilizing thin section imaging in supine and prone positi on. Multiaxial helical CT imaging was performed through the chest. IV contrast: None. Reconstructions : Coronal and sagittal. In accordance with CT protocol optimization, one or more of the following dose reduction techniques w ere utilized for this exam: automated exposure control, adjustment of mA and/or KV based on patient s ize, or use of iterative reconstructive technique. FINDINGS: Lungs: There is scattered centrilobular emphysema. There is basilar predominant, dependent interlobul ar septal thickening. There are trace bilateral pleural effusions. There is thickening of the fissure s. There is no evidence of bronchiectasis. No architectural distortion. No evidence of focal infiltra te. No suspicious lung nodules are seen. Expiratory imaging demonstrates no evidence of significant air-trapping. Prone imaging demonstrates d ecrease in posterior reticulation which is more suggestive of atelectasis and edema rather than signi ficant fibrosis. Mediastinum: There is mild aneurysmal dilatation of the ascending thoracic aorta which measures up to 4.0 cm in AP diameter. There is no evidence of significant pulmonary artery enlargement. Heart size is within normal limits. There are coronary artery and aortic valve calcifications. There are no enla rged axillary, supraclavicular, mediastinal, or hilar lymph nodes. Visualized abdomen: No acute abnormalities. Bones: No acute bony abnormalities are seen. IMPRESSION: 1. There is basilar predominant interlobular septal thickening. There are trace effusions with thicke valorie of the fissures. Findings are suspicious for lung edema. 2. There is no CT evidence of significant fibrosis. 3. There is centrilobular emphysema. 4. No evidence of lobar infiltrate. 5. There is mild aneurysmal dilatation of the ascending thoracic aorta which measures up to 4.0 cm in AP diameter. 6. There are coronary artery and aortic valve calcifications. [facility] Referring Provider Line: [phone] SITE ID: [id number]
[2017-02-26] MEDS: HYDROcod/ACETAM 5/325 MG TABLET PO PRN ×2 (05:38)
[2017-02-26] MEDS: PANTOPRAZOLE 40 MG TABLET PO SCH (06:12)
[2017-02-26] MEDS: LEVOTHYROXINE 25 MCG TABLET PO SCH (06:12)
[2017-02-26] MEDS: SODIUM CHLORIDE FLUSH 0.9% 10 ML SYRINGE IVP SCH ×3 (06:13→20:53)
[2017-02-26 06:55] LABS: BASOPHILS % (AUTO) 0.5 %; EOSINOPHILS # (AUTO) 0.3 10^3/uL (0.0-0.7); EOSINOPHILS % (AUTO) 3.6 %; HGB - HEMOGLOBIN 13.1 g/dL (12.0-16.0); LYMPHOCYTES # (AUTO) 0.6 10^3/uL (1.5-3.5); LYMPHOCYTES % (AUTO) 6.7 %; MEAN CORPUSCULAR HEMOGLOBIN 33.7 pg (27.0-31.0); MEAN CORPUSCULAR HGB CONC 32.8 g/dL (32.0-36.0); MEAN CORPUSCULAR VOLUME 102.8 fL (81.0-99.0); MEAN PLATELET VOLUME 7.4 fL (7.9-10.8); MONOCYTES % (AUTO) 12.2 %; NEUTROPHILS # (AUTO) 6.4 10^3/uL (1.5-6.6); RED BLOOD COUNT 3.89 10^6/uL (4.20-5.40); RED CELL DISTRIBUTION WIDTH 14.8 % (12.0-15.0); UNCORRECTED WHITE BLOOD COUNT 8.3 x10^3/uL; WHITE BLOOD COUNT 8.3 x10^3/uL (4.8-10.8)
[2017-02-26 07:06] LABS: CALCIUM 8.8 mg/dL (8.5-10.3); POTASSIUM 3.8 mmol/L (3.5-5.0)
[2017-02-26] MEDS ORDERED: ENOXAPARIN 40 MG/0.4 ML SYRINGE SUBQ SCH (09:00)
[2017-02-26] MEDS ORDERED: VERAPAMIL ER 120 MG TABLET PO SCH (09:00)
[2017-02-26] MEDS ORDERED: FUROSEMIDE 20 MG TABLET PO SCH (09:00)
[2017-02-26] MEDS ORDERED: SPIRONOLACTONE 25 MG TABLET PO SCH (09:00)
[2017-02-26] MEDS: POLYETHYLENE GLYCOL 3350 17 GM PACKET PO SCH (09:24)
[2017-02-26] MEDS: ENOXAPARIN 30 MG/0.3 ML SYRINGE SUBQ SCH (09:24)
[2017-02-26] MEDS: ASPIRIN EC 81 MG TABLET PO SCH (09:24)
[2017-02-26] MEDS ORDERED: METOPROLOL TARTRATE 50 MG TABLET PO SCH (10:15)
[2017-02-26] MEDS: METOPROLOL TARTRATE 50 MG TABLET PO SCH ×3 (10:52→23:16)
[2017-02-26] MEDS: VERAPAMIL ER 120 MG TABLET PO SCH ×2 (10:52→23:15)
[2017-02-26] MEDS ORDERED: FUROSEMIDE 40 MG TABLET PO SCH (11:00)
--- NOTE | 2017-02-26 11:18 | PROVIDER PROGRESS NOTE ---
Assessment/Plan - Problem List (1) Dyspnea Qualifiers: Dyspnea type: dyspnea on exertion Qualified Code(s): R06.09 - Other forms of dyspnea Assessment/Plan: could be multifactorial; afib with RVR: on aspirin; need better rate control ( HR 120s at rest, occasionally to 130s at rest); due to hypotension, will change metoprolol 100 mg bid to 50 mg every 6 hrs with paremeter, also verapamil from daily to BID Pulmonary HTN: slightly improving this time; from 75 to 69 mmHg acute on chronic diastolic heart failure: hold lasix and spironolactone today due to hypotension; will restart accordingly; no crackles or rales on exam; Echo result today shows EF 70%; BNP 861; daily weight and strict intake and output ruled out ACS: checked cardiac enzyme at ED, which was negative ( been SOB for 1 -2 weeks on exertion unlike PE with normal D-dimer level Emphysema: showed on CT; will try steroid inhaler/neb no anemia noted patient is not medically stable for discharge; change to inpatient status today she may need home O2 and higher level care such as [facility] (2) Atrial fibrillation with RVR Assessment/Plan: see above #1; may need prn iv metoprolol vs diltiazem for rate control (3) Heart failure, diastolic, acute on chronic Assessment/Plan: see above #1 (4) Pulmonary hypertension Assessment/Plan: see above #1 (6) Fever Qualifiers: Fever type: unspecified Qualified Code(s): R50.9 - Fever, unspecified Assessment/Plan: resolving pt is immunocompromised due to Methotrexate use pending blood culture result CT of chest shows no infiltrate (7) Hypotension Qualifiers: Hypotension type: unspecified hypotension type Qualified Code(s): I95.9 - Hypotension, unspecified Assessment/Plan: see above #1 also could be dehydration, infection, RVR will monitor check orthostatic BP (8) Chronic kidney disease (CKD) Qualifiers: Chronic kidney disease stage: stage 3 (moderate) Qualified Code(s): N18.3 - Chronic kidney disease, stage 3 (moderate) Assessment/Plan: stable at her baseline (9) Hyponatremia Assessment/Plan: mild; will monitor - Current Meds Current Meds: Current Medications Generic Name Dose Route Start Last Admin Trade Name Freq PRN Reason Stop Dose Admin Acetaminophen 650 mg 02/25/17 18:29 02/25/17 19:52 Tylenol PO 650 mg Q4HR PRN Administration Pain 1 to 4 Acetaminophen/Hydrocodone Bitart 1 tab 02/25/17 18:29 02/26/17 05:38 [place] 5/325 PO 1 tab Q4HR PRN Administration Pain 5 to 7 Aspirin 81 mg 02/26/17 09:00 02/26/17 09:24 Ecotrin PO 81 mg DAILY RUBIO Administration Enoxaparin Sodium 30 mg 02/26/17 09:00 02/26/17 09:24 Lovenox SUBQ 30 mg DAILY RUBIO Administration Furosemide 40 mg 02/26/17 11:00 02/26/17 10:52 Lasix PO 40 mg DAILY RUBIO Administration Levothyroxine Sodium 50 mcg 02/26/17 07:00 02/26/17 06:12 Synthroid PO 50 mcg QDAC RUBIO Administration Metoprolol Tartrate 50 mg 02/26/17 10:45 02/26/17 10:52 Lopressor PO 50 mg Q6H RUBIO Administration Pantoprazole Sodium 40 mg 02/26/17 07:00 02/26/17 06:12 Protonix PO 40 mg QDAC RUBIO Administration Polyethylene Glycol 17 gm 02/26/17 09:00 02/26/17 09:24 Miralax PO 17 gm DAILY RUBIO Administration Sodium Chloride 10 ml 02/25/17 22:00 02/26/17 06:13 Normal Saline Flush 0.9% IVP 10 ml Q8HR RUBIO Administration Verapamil HCl 120 mg 02/26/17 11:30 02/26/17 10:52 Calan Sa PO 120 mg BID RUBIO Administration - Lab Result Fish Bone Diagrams: 02/26/17 06:44 02/26/17 06:44 Other Lab Results: reviewed tele; afib with RVR EKG on 02/25/17 shows afluter with LBBB, HR 173 - EKG Results EKG Comparison: Other (EKG on 02/25/17 shows afluter with LBBB, HR 173) - Diagnostic Imaging Results Diagnostic Imaging Results: Final report reviewed Diagnostic Imaging Results Comments: Echocardiogram 02/26/17-- EF 70%; RVSP 69, slightly improving from prvious 75 CT of chest 02/25/17--suspicious lung edema; no evidence of significant fibrosis ; centrilobular emphysema, no lobar infiltrate 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 feel SOB on exertion. no palpitation; no CP) Nursing Reports: Other (heart rate 120 to 130; BP low) Objective Vital Signs: Vital Signs - 24 hr 02/26/17 02/26/17 10:47 10:52 Heart Rate [ 114 H Brachial] Blood Pressure 110/67 Blood Pressure 110/67 [Left Brachial artery] General: Alert, Oriented x3, Cooperative HEENT: Atraumatic, PERRLA Neck: Supple, No JVD Neuro: Non Focal Cardiovascular: Other (irregular heart rate with tachy) Respiratory: Chest non-tender, No respiratory distress, Breath sounds nml Abdomen: Normal bowel sounds, Soft Extremities: No clubbing, No cyanosis, No edema Skin: No rashes - Results Results: Laboratory Results WBC 8.3 x10^3/uL (4.8-10.8) 02/26/17 06:44 RBC 3.89 10^6/uL (4.20-5.40) L 02/26/17 06:44 Hgb 13.1 g/dL (12.0-16.0) 02/26/17 06:44 Hct 40.0 % (37.0-47.0) 02/26/17 06:44 MCV 102.8 fL (81.0-99.0) H 02/26/17 06:44 MCH 33.7 pg (27.0-31.0) H 02/26/17 06:44 MCHC 32.8 g/dL (32.0-36.0) 02/26/17 06:44 RDW 14.8 % (12.0-15.0) 02/26/17 06:44 Plt Count 318 10^3/uL (130-450) 02/26/17 06:44 MPV 7.4 fL (7.9-10.8) L 02/26/17 06:44 Neut # 6.4 10^3/uL (1.5-6.6) 02/26/17 06:44 Lymph # 0.6 10^3/uL (1.5-3.5) L 02/26/17 06:44 [place] # 1.0 10^3/uL (0.0-1.0) 02/26/17 06:44 Eos # 0.3 10^3/uL (0.0-0.7) 02/26/17 06:44 Baso # 0.0 10^3/uL (0.0-0.1) 02/26/17 06:44 Absolute Nucleated RBC 0.00 x10^3/uL 02/26/17 06:44 Nucleated RBCs 0.0 /100WBC 02/26/17 06:44 D-Dimer 216.2 ng/mL (200.0-255.0) 02/25/17 09:45 Sodium 134 mmol/L (135-145) L 02/26/17 06:44 Potassium 3.8 mmol/L (3.5-5.0) 02/26/17 06:44 Chloride 99 mmol/L (101-111) L 02/26/17 06:44 Carbon Dioxide 25 mmol/L (21-32) 02/26/17 06:44 Anion Gap 10.0 (6-13) 02/26/17 06:44 BUN 27 mg/dL (6-20) H 02/26/17 06:44 Creatinine 1.0 mg/dL (0.4-1.0) 02/26/17 06:44 Estimated GFR (MDRD) 53 (>89) L 02/26/17 06:44 Glucose 93 mg/dL (70-100) 02/26/17 06:44 Lactic Acid 1.2 mmol/L (0.5-2.2) 02/25/17 20:43 Calcium 8.8 mg/dL (8.5-10.3) 02/26/17 06:44 Total Bilirubin 0.9 mg/dL (0.2-1.0) 02/25/17 09:45 AST 21 IU/L (10-42) 02/25/17 09:45 ALT 12 IU/L (10-60) 02/25/17 09:45 Alkaline Phosphatase 68 IU/L (42-121) 02/25/17 09:45 Troponin I < 0.04 ng/mL (<0.49) 02/25/17 09:45 B-Natriuretic Peptide 861 pg/mL (5-100) H 02/26/17 06:44 Total Protein 7.5 g/dL (6.7-8.2) 02/25/17 09:45 Albumin 3.7 g/dL (3.2-5.5) 02/25/17 09:45 Globulin 3.8 g/dL (2.1-4.2) 02/25/17 09:45 Albumin/Globulin Ratio 1.0 (1.0-2.2) 02/25/17 09:45 Lipase 49 U/L (22-51) 02/25/17 09:45 TSH 2.72 uIU/mL (0.34-5.60) 02/25/17 09:45 Urine Color YELLOW 02/25/17 15:00 Urine Clarity CLEAR (CLEAR) 02/25/17 15:00 Urine pH 5.5 PH (5.0-7.5) 02/25/17 15:00 Ur Specific [place] <=1.005 (1.002-1.030) 02/25/17 15:00 Urine Protein NEGATIVE mg/dL (NEGATIVE) 02/25/17 15:00 Urine Glucose (UA) NEGATIVE mg/dL (NEGATIVE) 02/25/17 15:00 Urine Ketones NEGATIVE mg/dL (NEGATIVE) 02/25/17 15:00 Urine Occult Blood NEGATIVE (NEGATIVE) 02/25/17 15:00 Urine Nitrite NEGATIVE (NEGATIVE) 02/25/17 15:00 Urine Bilirubin NEGATIVE (NEGATIVE) 02/25/17 15:00 Urine Urobilinogen 0.2 (NORMAL) E.U./dL (NORMAL) 02/25/17 15:00 Ur Leukocyte Esterase TRACE (NEGATIVE) H 02/25/17 15:00 Urine RBC None Seen /HPF (0-5) 02/25/17 15:00 Urine WBC 0-3 /HPF (0-5) 02/25/17 15:00 Ur Squamous Epith Cells MANY Squamous (<= Few) H 02/25/17 15:00 Urine Bacteria Few /HPF (None Seen) 02/25/17 15:00 Ur Microscopic Review INDICATED 02/25/17 15:00 Urine Culture Comments NOT INDICATED 02/25/17 15:00
[2017-02-26] MEDS ORDERED: COLCHICINE 0.6 MG PO PRN (11:54)
[2017-02-26] MEDS: IPRATROPIUM 0.2 MG/ML NEB INH SCH ×2 (14:27→17:56)
[2017-02-26] MEDS: BUDESONIDE 0.5 MG/2 ML NEB INH SCH ×2 (14:27→17:56)
[2017-02-27] MEDS: METOPROLOL TARTRATE 50 MG TABLET PO SCH ×4 (05:41→16:53)
[2017-02-27] MEDS: SODIUM CHLORIDE FLUSH 0.9% 10 ML SYRINGE IVP SCH ×3 (05:48→20:35)
[2017-02-27] MEDS: LEVOTHYROXINE 25 MCG TABLET PO SCH (06:24)
[2017-02-27] MEDS: PANTOPRAZOLE 40 MG TABLET PO SCH (06:24)
[2017-02-27] MEDS: ACETAMINOPHEN 325 MG TABLET PO PRN (06:25)
[2017-02-27] MEDS ORDERED: NON FORMULARY MED (Levothyroxine Sodium [Synthroid] 50 MCG) PO SCH (07:00)
[2017-02-27 07:11] LABS: CALCIUM 8.5 mg/dL (8.5-10.3); CREATININE 0.9 mg/dL (0.4-1.0); POTASSIUM 4.2 mmol/L (3.5-5.0)
[2017-02-27] MEDS: IPRATROPIUM 0.2 MG/ML NEB INH SCH ×2 (07:31→19:05)
[2017-02-27] MEDS: BUDESONIDE 0.5 MG/2 ML NEB INH SCH ×2 (07:31→19:05)
[2017-02-27] MEDS ORDERED: SODIUM CHLORIDE 0.9% 1,000 ML IV SCH (08:00)
[2017-02-27] MEDS: LISINOPRIL 5 MG TABLET PO SCH (08:43)
[2017-02-27] MEDS: ENOXAPARIN 30 MG/0.3 ML SYRINGE SUBQ SCH (08:43)
[2017-02-27] MEDS: ASPIRIN EC 81 MG TABLET PO SCH (08:43)
[2017-02-27] MEDS: VERAPAMIL ER 120 MG TABLET PO SCH (08:44)
[2017-02-27] MEDS: POLYETHYLENE GLYCOL 3350 17 GM PACKET PO SCH (08:44)
[2017-02-27] MEDS ORDERED: SODIUM CHLORIDE 0.9% 100ML 100 ML IV SCH ×2 (09:00→16:00)
--- NOTE | 2017-02-27 13:24 | PROVIDER PROGRESS NOTE ---
Assessment/Plan - Problem List (1) Dyspnea Qualifiers: Dyspnea type: dyspnea on exertion Qualified Code(s): R06.09 - Other forms of dyspnea Assessment/Plan: could be multifactorial; afib with RVR: on aspirin; need better rate control; could be from dehydration HR was up to 170 once earlier today. responded 100 ml iv fluid in 2 hours today due to hypotension, changed metoprolol 100 mg bid to 50 mg every 6 hrs with jorditer, also verapamil from daily to BID discussed with cardiology nylon operator for Dr. Ayaka Chahal, who recommends hold metoprolol, verapamil if SBP < 95; also recommends very gentle hydration to avoid right side heart failure if clinical indicated Pulmonary HTN: slightly improving this time by number; from 75 to 69 mmHg acute on chronic diastolic heart failure: hold lasix and spironolactone due to hypotension; will restart accordingly; no crackles or rales on exam; Echo result shows EF 70%; BNP 861; daily weight and strict intake and output ruled out ACS: checked cardiac enzyme at ED, which was negative ( been SOB for 1 -2 weeks on exertion unlike PE with normal D-dimer level Emphysema: showed on CT; trial steroid inhaler/neb no anemia noted she may need home O2 and higher level care such as [facility] (2) Weight loss Assessment/Plan: could be from her current diseases vs malignancy; recommend further outpatient eval as her wish once she is more stabilized nutrition consult Fever Qualifiers: Fever type: unspecified Qualified Code(s): R50.9 - Fever, unspecified Assessment/Plan: spiked another temp of 38 this morning. pt is immunocompromised due to Methotrexate use blood culture negative so far; ua negative CT of chest shows no infiltrate ? viral; will monitor; no antibiotic is given Hypotension Qualifiers: Hypotension type: unspecified hypotension type Qualified Code(s): I95.9 - Hypotension, unspecified Assessment/Plan: see above #1 also could be dehydration, infection, RVR will monitor positive orthostatic BP; getting every gentle iv fluid; 50 ml NS x 2 hours bid today Hyponatremia Assessment/Plan: slight worse today; will monitor - Current Meds Current Meds: Current Medications Generic Name Dose Route Start Last Admin Trade Name Freq PRN Reason Stop Dose Admin Acetaminophen 650 mg 02/25/17 18:29 02/27/17 06:25 Tylenol PO 650 mg Q4HR PRN Administration Pain 1 to 4 Acetaminophen/Hydrocodone Bitart 1 tab 02/25/17 18:29 02/26/17 05:38 [place] 5/325 PO 1 tab Q4HR PRN Administration Pain 5 to 7 Aspirin 81 mg 02/26/17 09:00 02/27/17 08:43 Ecotrin PO 81 mg DAILY RUBIO Administration Budesonide 0.5 mg 02/26/17 12:00 02/27/17 07:31 Pulmicort INH 0.5 mg RTBID RUBIO Administration Enoxaparin Sodium 30 mg 02/26/17 09:00 02/27/17 08:43 Lovenox SUBQ 30 mg DAILY RUBIO Administration Ipratropium [place] 0.5 mg 02/26/17 12:00 02/27/17 07:31 Atrovent INH 0.5 mg RTBID RUBIO Administration Levothyroxine Sodium 50 mcg 02/26/17 07:00 02/27/17 06:24 Synthroid PO 50 mcg QDAC RUBIO Administration Lisinopril 2.5 mg 02/27/17 09:00 02/27/17 08:43 Zestril PO Not Given DAILY RUBIO Pantoprazole Sodium 40 mg 02/26/17 07:00 02/27/17 06:24 Protonix PO 40 mg QDAC RUBIO Administration Polyethylene Glycol 17 gm 02/26/17 09:00 02/27/17 08:44 Miralax PO 17 gm DAILY RUBIO Administration Sodium Chloride 10 ml 02/25/17 22:00 02/27/17 08:44 Normal Saline Flush 0.9% IVP 10 ml Q8HR RUBIO Administration - Lab Result Fish Bone Diagrams: 02/26/17 06:44 02/27/17 06:59 - EKG Results EKG Comparison: Other (reviewed tele today; afib with RVR in early am; HR 120 to 130s at rest; after iv fluid, HR 90 to 100 range at rest) - Additional Planning Condition/Complexity: Stable My Orders: My Active Orders 02/26/17 15:16 Activity Orders [RC] QSHIFT 02/27/17 09:00 Lisinopril [Zestril] 2.5 mg PO DAILY 02/27/17 13:11 Verapamil ER [Calan SA] 120 mg PO BID 02/27/17 13:17 Metoprolol Tartrate [Lopressor] 50 mg PO Q6H 02/27/17 16:00 Sodium Chloride 0.9% 100Ml [Normal Saline 0.9% 100Ml] 100 ml IV 50 mls/hr Consult/Specialty: Other (called cardiology at [facility] Dr. Jessie Chahal nylon operator for Dr. Marley ( patient's cardiology)) Plan Discussed with:: Patient, Other (patient's son on the phone. updated patient's condition) Time Spent: 31-60 minutes Subjective - Subjective Patient Reports: Other (" you tell me". " I don't know"; denies palpitation, chest pain, SOB. " I am fine") Nursing Reports: Other (positive orthostatic, HR up with mild exertion; BP dropped to high 70s when checking orthostatic earlier today) Objective Vital Signs: Vital Signs - 24 hr 02/26/17 02/26/17 02/26/17 14:15 15:40 15:41 Temperature 37.1 C Heart Rate 112 H Heart Rate [ 58 L Brachial] Heart Rate [ Sitting] Heart Rate [ Standing] Heart Rate [ Supine] Respiratory 18 20 Rate Blood Pressure Blood Pressure 95/61 91/44 L [Left Brachial artery] Blood Pressure [Right Brachial artery] Blood Pressure [Sitting] Blood Pressure [Standing] Blood Pressure [Supine] O2 Saturation 93 02/26/17 02/26/17 02/26/17 17:58 20:31 21:04 Temperature Heart Rate 106 H Heart Rate [ 79 Brachial] Heart Rate [ 124 H Sitting] Heart Rate [ 82 Standing] Heart Rate [ 86 Supine] Respiratory 18 Rate Blood Pressure Blood Pressure [Left Brachial artery] Blood Pressure 85/48 L [Right Brachial artery] Blood Pressure 84/61 L [Sitting] Blood Pressure 79/61 L [Standing] Blood Pressure 88/56 L [Supine] O2 Saturation 02/26/17 02/27/17 02/27/17 23:50 02:00 04:55 Temperature 36.4 C L Heart Rate Heart Rate [ 75 120 H Brachial] Heart Rate [ 111 H Sitting] Heart Rate [ 175 H Standing] Heart Rate [ 100 Supine] Respiratory 16 Rate Blood Pressure Blood Pressure 87/52 L 102/69 [Left Brachial artery] Blood Pressure [Right Brachial artery] Blood Pressure 98/55 L [Sitting] Blood Pressure 78/43 L [Standing] Blood Pressure 120/78 [Supine] O2 Saturation 94 02/27/17 02/27/17 02/27/17 05:18 05:24 05:28 Temperature 38.4 C H Heart Rate Heart Rate [ 93 175 H Brachial] Heart Rate [ Sitting] Heart Rate [ Standing] Heart Rate [ Supine] Respiratory 16 Rate Blood Pressure Blood Pressure 120/78 98/55 L 78/43 L [Left Brachial artery] Blood Pressure [Right Brachial artery] Blood Pressure [Sitting] Blood Pressure [Standing] Blood Pressure [Supine] O2 Saturation 92 02/27/17 02/27/17 02/27/17 07:33 08:34 11:06 Temperature 36.6 C Heart Rate 120 H Heart Rate [ 137 H 114 H Brachial] Heart Rate [ Sitting] Heart Rate [ Standing] Heart Rate [ Supine] Respiratory 20 20 Rate Blood Pressure Blood Pressure 88/51 L 79/55 L [Left Brachial artery] Blood Pressure [Right Brachial artery] Blood Pressure [Sitting] Blood Pressure [Standing] Blood Pressure [Supine] O2 Saturation 93 02/27/17 12:03 Temperature 36.9 C Heart Rate Heart Rate [ 100 Brachial] Heart Rate [ Sitting] Heart Rate [ Standing] Heart Rate [ Supine] Respiratory 18 Rate Blood Pressure 88/57 L Blood Pressure 88/57 L [Left Brachial artery] Blood Pressure [Right Brachial artery] Blood Pressure [Sitting] Blood Pressure [Standing] Blood Pressure [Supine] O2 Saturation 93 Oxygen O2 Source Nasal cannula I&O (Last 24 Hrs): Intake and Output Totals x24h 02/25/17 02/26/17 02/27/17 23:59 23:59 23:59 Intake Total 620 700 Output Total 50 Balance 620 650 General: Alert, Oriented x3, Cooperative HEENT: Atraumatic, PERRLA Neck: Supple Neuro: Non Focal Cardiovascular: Normal S1, Normal S2, Other (irregular heart rate and rhythm) Respiratory: No respiratory distress, Other (decreased lung sound at bases; no rale, rhonchi, wheezes) Abdomen: Normal bowel sounds, Soft Extremities: No clubbing, No cyanosis Skin: No rashes - Results Results: Laboratory Results WBC 8.3 x10^3/uL (4.8-10.8) 02/26/17 06:44 RBC 3.89 10^6/uL (4.20-5.40) L 02/26/17 06:44 Hgb 13.1 g/dL (12.0-16.0) 02/26/17 06:44 Hct 40.0 % (37.0-47.0) 02/26/17 06:44 MCV 102.8 fL (81.0-99.0) H 02/26/17 06:44 MCH 33.7 pg (27.0-31.0) H 02/26/17 06:44 MCHC 32.8 g/dL (32.0-36.0) 02/26/17 06:44 RDW 14.8 % (12.0-15.0) 02/26/17 06:44 Plt Count 318 10^3/uL (130-450) 02/26/17 06:44 MPV 7.4 fL (7.9-10.8) L 02/26/17 06:44 Neut # 6.4 10^3/uL (1.5-6.6) 02/26/17 06:44 Lymph # 0.6 10^3/uL (1.5-3.5) L 02/26/17 06:44 [place] # 1.0 10^3/uL (0.0-1.0) 02/26/17 06:44 Eos # 0.3 10^3/uL (0.0-0.7) 02/26/17 06:44 Baso # 0.0 10^3/uL (0.0-0.1) 02/26/17 06:44 Absolute Nucleated RBC 0.00 x10^3/uL 02/26/17 06:44 Nucleated RBCs 0.0 /100WBC 02/26/17 06:44 D-Dimer 216.2 ng/mL (200.0-255.0) 02/25/17 09:45 Sodium 130 mmol/L (135-145) L 02/27/17 06:59 Potassium 4.2 mmol/L (3.5-5.0) 02/27/17 06:59 Chloride 97 mmol/L (101-111) L 02/27/17 06:59 Carbon Dioxide 23 mmol/L (21-32) 02/27/17 06:59 Anion Gap 10.0 (6-13) 02/27/17 06:59 BUN 20 mg/dL (6-20) 02/27/17 06:59 Creatinine 0.9 mg/dL (0.4-1.0) 02/27/17 06:59 Estimated GFR (MDRD) 60 (>89) L 02/27/17 06:59 Glucose 96 mg/dL (70-100) 02/27/17 06:59 Lactic Acid 1.2 mmol/L (0.5-2.2) 02/25/17 20:43 Calcium 8.5 mg/dL (8.5-10.3) 02/27/17 06:59 Total Bilirubin 0.9 mg/dL (0.2-1.0) 02/25/17 09:45 AST 21 IU/L (10-42) 02/25/17 09:45 ALT 12 IU/L (10-60) 02/25/17 09:45 Alkaline Phosphatase 68 IU/L (42-121) 02/25/17 09:45 Troponin I < 0.04 ng/mL (<0.49) 02/25/17 09:45 B-Natriuretic Peptide 861 pg/mL (5-100) H 02/26/17 06:44 Total Protein 7.5 g/dL (6.7-8.2) 02/25/17 09:45 Albumin 3.7 g/dL (3.2-5.5) 02/25/17 09:45 Globulin 3.8 g/dL (2.1-4.2) 02/25/17 09:45 Albumin/Globulin Ratio 1.0 (1.0-2.2) 02/25/17 09:45 Lipase 49 U/L (22-51) 02/25/17 09:45 TSH 2.72 uIU/mL (0.34-5.60) 02/25/17 09:45 Urine Color YELLOW 02/25/17 15:00 Urine Clarity CLEAR (CLEAR) 02/25/17 15:00 Urine pH 5.5 PH (5.0-7.5) 02/25/17 15:00 Ur Specific [place] <=1.005 (1.002-1.030) 02/25/17 15:00 Urine Protein NEGATIVE mg/dL (NEGATIVE) 02/25/17 15:00 Urine Glucose (UA) NEGATIVE mg/dL (NEGATIVE) 02/25/17 15:00 Urine Ketones NEGATIVE mg/dL (NEGATIVE) 02/25/17 15:00 Urine Occult Blood NEGATIVE (NEGATIVE) 02/25/17 15:00 Urine Nitrite NEGATIVE (NEGATIVE) 02/25/17 15:00 Urine Bilirubin NEGATIVE (NEGATIVE) 02/25/17 15:00 Urine Urobilinogen 0.2 (NORMAL) E.U./dL (NORMAL) 02/25/17 15:00 Ur Leukocyte Esterase TRACE (NEGATIVE) H 02/25/17 15:00 Urine RBC None Seen /HPF (0-5) 02/25/17 15:00 Urine WBC 0-3 /HPF (0-5) 02/25/17 15:00 Ur Squamous Epith Cells MANY Squamous (<= Few) H 02/25/17 15:00 Urine Bacteria Few /HPF (None Seen) 02/25/17 15:00 Ur Microscopic Review INDICATED 02/25/17 15:00 Urine Culture Comments NOT INDICATED 02/25/17 15:00
[2017-02-27] MEDS ORDERED: VERAPAMIL ER 120 MG TABLET PO SCH ×2 (14:00→21:00)
[2017-02-27] MEDS ORDERED: METOPROLOL TARTRATE 50 MG TABLET PO SCH (14:00)
[2017-02-28] MEDS: METOPROLOL TARTRATE 50 MG TABLET PO SCH ×2 (01:12→05:15)
[2017-02-28] MEDS: LEVOTHYROXINE 25 MCG TABLET PO SCH (05:14)
[2017-02-28] MEDS: SODIUM CHLORIDE FLUSH 0.9% 10 ML SYRINGE IVP SCH ×3 (05:14→19:45)
[2017-02-28] MEDS: PANTOPRAZOLE 40 MG TABLET PO SCH (05:15)
[2017-02-28] MEDS: BUDESONIDE 0.5 MG/2 ML NEB INH SCH ×2 (07:45→20:24)
[2017-02-28] MEDS: IPRATROPIUM 0.2 MG/ML NEB INH SCH ×2 (07:45→20:23)
[2017-02-28] MEDS ORDERED: VERAPAMIL ER 120 MG TABLET PO SCH (09:00)
[2017-02-28] MEDS: POLYETHYLENE GLYCOL 3350 17 GM PACKET PO SCH (09:31)
[2017-02-28] MEDS: LISINOPRIL 5 MG TABLET PO SCH (09:31)
[2017-02-28] MEDS: ASPIRIN EC 81 MG TABLET PO SCH (09:31)
[2017-02-28] MEDS: ENOXAPARIN 30 MG/0.3 ML SYRINGE SUBQ SCH (09:32)
--- NOTE | 2017-02-28 11:22 | PROVIDER PROGRESS NOTE ---
Assessment/Plan - Problem List (1) Dyspnea Qualifiers: Dyspnea type: dyspnea on exertion Qualified Code(s): R06.09 - Other forms of dyspnea Assessment/Plan: could be multifactorial; afib with RVR: on aspirin; need better rate control; could be from dehydration HR is better. responded 100 ml iv fluid in 2 hours on 02/27 due to hypotension, changed metoprolol 100 mg bid to 25 mg every 6 hrs with tomás, also verapamil from daily to BID 02/27 discussed with cardiology sharepoint solutions developer for Dr. Ayaka Chahal, who recommends hold metoprolol, verapamil if SBP < 95; also recommends very gentle hydration to avoid right side heart failure if clinical indicated after getting Verapmil, BP dropped; in order to have better rate control, will set up different parameters for metoprolol and verapamil. uncertain digoxin will be a good option for her at this time. will consider if failing current management. Pulmonary HTN: slightly improving this time by number; from 75 to 69 mmHg acute on chronic diastolic heart failure: hold lasix and spironolactone due to hypotension; will restart accordingly; no crackles or rales on exam; Echo result shows EF 70%; BNP 861; daily weight and strict intake and output ruled out ACS: checked cardiac enzyme at ED, which was negative ( been SOB for 1 -2 weeks on exertion unlike PE with normal D-dimer level Emphysema: showed on CT; trial steroid inhaler/neb no anemia noted she may need home O2 and higher level care such as [facility] vs [facility] (2) Weight loss with history of ETOH Assessment/Plan: could be from her current diseases vs malignancy; recommend further outpatient eval as her wish once she is more stabilized nutrition consult added folic acid and Fever Qualifiers: Fever type: unspecified Qualified Code(s): R50.9 - Fever, unspecified Assessment/Plan: spiked another temp of 38 02/27 am. pt is immunocompromised due to Methotrexate use blood culture negative so far; ua negative CT of chest shows no infiltrate ? viral; will monitor; no antibiotic is given ? from ETOH withdrawal Hypotension-- slightly improved Qualifiers: Hypotension type: unspecified hypotension type Qualified Code(s): I95.9 - Hypotension, unspecified Assessment/Plan: see above #1 also could be dehydration, infection, RVR will monitor positive orthostatic BP; getting every gentle iv fluid; 50 ml NS x 2 hours once on 02/27 Hyponatremia Assessment/Plan: slight worse today; will monitor - Current Meds Current Meds: Current Medications Generic Name Dose Route Start Last Admin Trade Name Freq PRN Reason Stop Dose Admin Acetaminophen 650 mg 02/25/17 18:29 02/27/17 06:25 Tylenol PO 650 mg Q4HR PRN Administration Pain 1 to 4 Acetaminophen/Hydrocodone Bitart 1 tab 02/25/17 18:29 02/26/17 05:38 [place] 5/325 PO 1 tab Q4HR PRN Administration Pain 5 to 7 Aspirin 81 mg 02/26/17 09:00 02/28/17 09:31 Ecotrin PO 81 mg DAILY RUBIO Administration Budesonide 0.5 mg 02/26/17 12:00 02/28/17 07:45 Pulmicort INH 0.5 mg RTBID RUBIO Administration Enoxaparin Sodium 30 mg 02/26/17 09:00 02/28/17 09:32 Lovenox SUBQ 30 mg DAILY RUBIO Administration Ipratropium [place] 0.5 mg 02/26/17 12:00 02/28/17 07:45 Atrovent INH 0.5 mg RTBID RUBIO Administration Levothyroxine Sodium 50 mcg 02/26/17 07:00 02/28/17 05:14 Synthroid PO 50 mcg QDAC RUBIO Administration Lisinopril 2.5 mg 02/27/17 09:00 02/28/17 09:31 Zestril PO 2.5 mg DAILY RUBIO Administration Pantoprazole Sodium 40 mg 02/26/17 07:00 02/28/17 05:15 Protonix PO 40 mg QDAC RUBIO Administration Polyethylene Glycol 17 gm 02/26/17 09:00 02/28/17 09:31 Miralax PO 17 gm DAILY RUBIO Administration Sodium Chloride 10 ml 02/25/17 22:00 02/28/17 05:14 Normal Saline Flush 0.9% IVP 10 ml Q8HR RUBIO Administration Verapamil HCl 120 mg 02/28/17 09:00 02/28/17 09:31 Calan Sa PO 120 mg BID RUBIO Administration - Lab Result Lab results reviewed: Yes Fish Bone Diagrams: 02/26/17 06:44 02/27/17 06:59 - EKG Results EKG Comparison: Other (tele reviewed; afib HR 90 to 100 most of time) - Additional Planning Condition/Complexity: Stable My Orders: My Active Orders 02/28/17 08:00 Dietary [Nutrition Consult] [CONS] Routine 02/28/17 09:00 Verapamil ER [Calan SA] 120 mg PO BID 02/28/17 11:00 Folic Acid 1 mg PO DAILY 02/28/17 12:00 Metoprolol Tartrate [Lopressor] 25 mg PO Q6H Vitamin [Trinatal Rx 1] 1 tab PO DAILYWM 02/28/17 Lunch Low Sodium Diet [DIET] 03/01/17 05:00 CBC - COMP BLD CT W/AUTO DIFF [HEME] Routine CMP [COMPREHENSIVE METABOLIC PANEL] [CHEM] Routine Plan Discussed with:: Patient Time Spent: 31-60 minutes Subjective - Subjective Patient Reports: Constipation, Other (poor appetitie; SOB on exertion; no dizziness) Nursing Reports: Other (RVR with activity) Objective Vital Signs: Vital Signs - 24 hr 02/27/17 02/27/17 02/27/17 12:03 15:23 19:06 Temperature 36.9 C 36.7 C Heart Rate 101 H Heart Rate [ 100 120 H Brachial] Respiratory 18 20 20 Rate Blood Pressure 88/57 L Blood Pressure 88/57 L 114/98 H [Left Brachial artery] Blood Pressure [Right Brachial artery] O2 Saturation 93 94 02/27/17 02/27/17 02/27/17 20:14 23:30 23:35 Temperature 37 C 36.5 C Heart Rate Heart Rate [ 82 93 95 Brachial] Respiratory 20 Rate Blood Pressure Blood Pressure 75/46 L 76/45 L [Left Brachial artery] Blood Pressure 80/52 L [Right Brachial artery] O2 Saturation 92 92 90 L 02/28/17 02/28/17 02/28/17 00:00 01:00 01:12 Temperature 36.3 C L Heart Rate Heart Rate [ 75 72 Brachial] Respiratory 18 Rate Blood Pressure 70/49 L Blood Pressure 71/49 L 70/41 L [Left Brachial artery] Blood Pressure [Right Brachial artery] O2 Saturation 92 02/28/17 02/28/17 02/28/17 05:00 05:15 07:45 Temperature 36.6 C Heart Rate 93 Heart Rate [ 104 H Brachial] Respiratory 16 16 Rate Blood Pressure 99/65 Blood Pressure 99/83 H [Left Brachial artery] Blood Pressure [Right Brachial artery] O2 Saturation 92 02/28/17 08:00 Temperature 37.9 C H Heart Rate Heart Rate [ 82 Brachial] Respiratory 18 Rate Blood Pressure Blood Pressure [Left Brachial artery] Blood Pressure 107/57 L [Right Brachial artery] O2 Saturation 95 Oxygen O2 Source Nasal cannula I&O (Last 24 Hrs): Intake and Output Totals x24h 02/26/17 02/27/17 02/28/17 23:59 23:59 23:59 Intake Total 620 900 330 Output Total 350 200 Balance 620 550 130 General: Alert, Oriented x3, Cooperative HEENT: Atraumatic, PERRLA Neck: Supple Neuro: Non Focal Cardiovascular: Normal S1, Normal S2, Other (irregular heart rate and rhythm) Respiratory: No respiratory distress, Breath sounds nml Abdomen: Normal bowel sounds, Soft Extremities: No clubbing, No edema Skin: No rashes - Results Results: Laboratory Results WBC 8.3 x10^3/uL (4.8-10.8) 02/26/17 06:44 RBC 3.89 10^6/uL (4.20-5.40) L 02/26/17 06:44 Hgb 13.1 g/dL (12.0-16.0) 02/26/17 06:44 Hct 40.0 % (37.0-47.0) 02/26/17 06:44 MCV 102.8 fL (81.0-99.0) H 02/26/17 06:44 MCH 33.7 pg (27.0-31.0) H 02/26/17 06:44 MCHC 32.8 g/dL (32.0-36.0) 02/26/17 06:44 RDW 14.8 % (12.0-15.0) 02/26/17 06:44 Plt Count 318 10^3/uL (130-450) 02/26/17 06:44 MPV 7.4 fL (7.9-10.8) L 02/26/17 06:44 Neut # 6.4 10^3/uL (1.5-6.6) 02/26/17 06:44 Lymph # 0.6 10^3/uL (1.5-3.5) L 02/26/17 06:44 [place] # 1.0 10^3/uL (0.0-1.0) 02/26/17 06:44 Eos # 0.3 10^3/uL (0.0-0.7) 02/26/17 06:44 Baso # 0.0 10^3/uL (0.0-0.1) 02/26/17 06:44 Absolute Nucleated RBC 0.00 x10^3/uL 02/26/17 06:44 Nucleated RBCs 0.0 /100WBC 02/26/17 06:44 D-Dimer 216.2 ng/mL (200.0-255.0) 02/25/17 09:45 Sodium 130 mmol/L (135-145) L 02/27/17 06:59 Potassium 4.2 mmol/L (3.5-5.0) 02/27/17 06:59 Chloride 97 mmol/L (101-111) L 02/27/17 06:59 Carbon Dioxide 23 mmol/L (21-32) 02/27/17 06:59 Anion Gap 10.0 (6-13) 02/27/17 06:59 BUN 20 mg/dL (6-20) 02/27/17 06:59 Creatinine 0.9 mg/dL (0.4-1.0) 02/27/17 06:59 Estimated GFR (MDRD) 60 (>89) L 02/27/17 06:59 Glucose 96 mg/dL (70-100) 02/27/17 06:59 Lactic Acid 1.2 mmol/L (0.5-2.2) 02/25/17 20:43 Calcium 8.5 mg/dL (8.5-10.3) 02/27/17 06:59 Total Bilirubin 0.9 mg/dL (0.2-1.0) 02/25/17 09:45 AST 21 IU/L (10-42) 02/25/17 09:45 ALT 12 IU/L (10-60) 02/25/17 09:45 Alkaline Phosphatase 68 IU/L (42-121) 02/25/17 09:45 Troponin I < 0.04 ng/mL (<0.49) 02/25/17 09:45 B-Natriuretic Peptide 861 pg/mL (5-100) H 02/26/17 06:44 Total Protein 7.5 g/dL (6.7-8.2) 02/25/17 09:45 Albumin 3.7 g/dL (3.2-5.5) 02/25/17 09:45 Globulin 3.8 g/dL (2.1-4.2) 02/25/17 09:45 Albumin/Globulin Ratio 1.0 (1.0-2.2) 02/25/17 09:45 Lipase 49 U/L (22-51) 02/25/17 09:45 TSH 2.72 uIU/mL (0.34-5.60) 02/25/17 09:45 Urine Color YELLOW 02/25/17 15:00 Urine Clarity CLEAR (CLEAR) 02/25/17 15:00 Urine pH 5.5 PH (5.0-7.5) 02/25/17 15:00 Ur Specific [place] <=1.005 (1.002-1.030) 02/25/17 15:00 Urine Protein NEGATIVE mg/dL (NEGATIVE) 02/25/17 15:00 Urine Glucose (UA) NEGATIVE mg/dL (NEGATIVE) 02/25/17 15:00 Urine Ketones NEGATIVE mg/dL (NEGATIVE) 02/25/17 15:00 Urine Occult Blood NEGATIVE (NEGATIVE) 02/25/17 15:00 Urine Nitrite NEGATIVE (NEGATIVE) 02/25/17 15:00 Urine Bilirubin NEGATIVE (NEGATIVE) 02/25/17 15:00 Urine Urobilinogen 0.2 (NORMAL) E.U./dL (NORMAL) 02/25/17 15:00 Ur Leukocyte Esterase TRACE (NEGATIVE) H 02/25/17 15:00 Urine RBC None Seen /HPF (0-5) 02/25/17 15:00 Urine WBC 0-3 /HPF (0-5) 02/25/17 15:00 Ur Squamous Epith Cells MANY Squamous (<= Few) H 02/25/17 15:00 Urine Bacteria Few /HPF (None Seen) 02/25/17 15:00 Ur Microscopic Review INDICATED 02/25/17 15:00 Urine Culture Comments NOT INDICATED 02/25/17 15:00
[2017-02-28] MEDS: FOLIC ACID 1 MG TABLET PO SCH (11:29)
[2017-02-28] MEDS ORDERED: A & D OINTMENT 5 GM PACKET TOP ONE (12:32)
[2017-02-28] MEDS: METOPROLOL TARTRATE 25 MG TABLET PO SCH ×2 (12:53→18:53)
[2017-02-28] MEDS: PRENATAL VITAMIN TABLET PO SCH (12:54)
[2017-02-28] MEDS: ACETAMINOPHEN 325 MG TABLET PO PRN (19:45)
[2017-03-01] MEDS: METOPROLOL TARTRATE 25 MG TABLET PO SCH ×5 (00:12→23:47)
[2017-03-01 05:46] LABS: BASOPHILS % (AUTO) 0.3 %; EOSINOPHILS # (AUTO) 0.2 10^3/uL (0.0-0.7); EOSINOPHILS % (AUTO) 2.4 %; HCT - HEMATOCRIT 36.8 % (37.0-47.0); HGB - HEMOGLOBIN 12.3 g/dL (12.0-16.0); LYMPHOCYTES # (AUTO) 0.4 10^3/uL (1.5-3.5); LYMPHOCYTES % (AUTO) 4.4 %; MEAN CORPUSCULAR HGB CONC 33.4 g/dL (32.0-36.0); MEAN PLATELET VOLUME 7.3 fL (7.9-10.8); MONOCYTES % (AUTO) 11.1 %; NEUTROPHILS # (AUTO) 7.5 10^3/uL (1.5-6.6); NEUTROPHILS % (AUTO) 81.8 %; RED BLOOD COUNT 3.61 10^6/uL (4.20-5.40); RED CELL DISTRIBUTION WIDTH 14.4 % (12.0-15.0); UNCORRECTED WHITE BLOOD COUNT 9.2 x10^3/uL; WHITE BLOOD COUNT 9.2 x10^3/uL (4.8-10.8)
[2017-03-01 05:59] LABS: ALBUMIN/GLOBULIN RATIO 0.9 (1.0-2.2); BILIRUBIN,TOTAL 1.1 mg/dL (0.2-1.0); CALCIUM 8.5 mg/dL (8.5-10.3); CREATININE 0.8 mg/dL (0.4-1.0); POTASSIUM 4.2 mmol/L (3.5-5.0); TOTAL PROTEIN 6.3 g/dL (6.7-8.2)
[2017-03-01] MEDS: LEVOTHYROXINE 25 MCG TABLET PO SCH (06:04)
[2017-03-01] MEDS: ACETAMINOPHEN 325 MG TABLET PO PRN (06:04)
[2017-03-01] MEDS: PANTOPRAZOLE 40 MG TABLET PO SCH (06:04)
[2017-03-01] MEDS: SODIUM CHLORIDE FLUSH 0.9% 10 ML SYRINGE IVP SCH ×3 (06:05→21:21)
[2017-03-01] MEDS: BUDESONIDE 0.5 MG/2 ML NEB INH SCH ×2 (07:15→20:15)
[2017-03-01] MEDS: IPRATROPIUM 0.2 MG/ML NEB INH SCH ×2 (07:15→20:15)
[2017-03-01] MEDS: ASPIRIN EC 81 MG TABLET PO SCH (11:05)
[2017-03-01] MEDS: PRENATAL VITAMIN TABLET PO SCH (11:05)
[2017-03-01] MEDS: FOLIC ACID 1 MG TABLET PO SCH (11:05)
[2017-03-01] MEDS: POLYETHYLENE GLYCOL 3350 17 GM PACKET PO SCH (11:13)
[2017-03-01] MEDS: LISINOPRIL 5 MG TABLET PO SCH (11:13)
[2017-03-01] MEDS: ENOXAPARIN 30 MG/0.3 ML SYRINGE SUBQ SCH (11:13)
--- NOTE | 2017-03-01 12:22 | PROVIDER PROGRESS NOTE ---
Assessment/Plan - Problem List (1) Dyspnea Qualifiers: Dyspnea type: dyspnea on exertion Qualified Code(s): R06.09 - Other forms of dyspnea Assessment/Plan: Multifactorial: Emphysema: showed on CT; trial steroid inhaler/neb She may need home O2 and higher level care such as [facility] vs [facility] Pulmonary HTN: moderate-severe by Echo. Acute on chronic diastolic heart failure: no crackles or rales on exam; Echo result shows EF 70%; BNP 861; daily weight and strict intake and output Ruled out ACS: checked cardiac enzyme at ED, which was negative ( been SOB for 1 -2 weeks on exertion Unlikely PE with normal D-dimer level (2) Fever Qualifiers: Fever type: unspecified Qualified Code(s): R50.9 - Fever, unspecified Assessment/Plan: Pt spiked another temp at 0600 today pt is immunocompromised due to Methotrexate use blood culture negative so far; ua negative CT of chest shows no infiltrate WBC is normal and no left shift on differential ? viral; will monitor; no antibiotic given (3) Atrial fibrillation with RVR Assessment/Plan: HR does rise during fever Rapid rate is improving with med adjustments to have more spread out meds. Will assess with increased activity, OOB to chair withmeals/TID. - Current Meds Current Meds: Current Medications Generic Name Dose Route Start Last Admin Trade Name Freq PRN Reason Stop Dose Admin Acetaminophen 650 mg 02/25/17 18:29 03/01/17 06:04 Tylenol PO 650 mg Q4HR PRN Administration Pain 1 to 4 Acetaminophen/Hydrocodone Bitart 1 tab 02/25/17 18:29 02/26/17 05:38 [place] 5/325 PO 1 tab Q4HR PRN Administration Pain 5 to 7 Aspirin 81 mg 02/26/17 09:00 03/01/17 11:05 Ecotrin PO 81 mg DAILY RUBIO Administration Budesonide 0.5 mg 02/26/17 12:00 03/01/17 07:15 Pulmicort INH 0.5 mg RTBID RUBIO Administration Enoxaparin Sodium 30 mg 02/26/17 09:00 03/01/17 11:13 Lovenox SUBQ 30 mg DAILY RUBIO Administration Folic Acid 1 mg 02/28/17 11:00 03/01/17 11:05 PO 1 mg DAILY RUBIO Administration Ipratropium [place] 0.5 mg 02/26/17 12:00 03/01/17 07:15 Atrovent INH 0.5 mg RTBID RUBIO Administration Levothyroxine Sodium 50 mcg 02/26/17 07:00 03/01/17 06:04 Synthroid PO 50 mcg QDAC RUBIO Administration Metoprolol Tartrate 25 mg 02/28/17 12:00 03/01/17 06:03 Lopressor PO 25 mg Q6H RUBIO Administration Pantoprazole Sodium 40 mg 02/26/17 07:00 03/01/17 06:04 Protonix PO 40 mg QDAC RUBIO Administration Polyethylene Glycol 17 gm 02/26/17 09:00 03/01/17 11:13 Miralax PO Not Given DAILY RUBIO Multivit/Folic Acid/Iron 1 tab 02/28/17 12:00 03/01/17 11:05 Trinatal Rx 1 PO 1 tab DAILYWM RUBIO Administration Sodium Chloride 10 ml 02/25/17 22:00 03/01/17 06:05 Normal Saline Flush 0.9% IVP 10 ml Q8HR RUBIO Administration - Lab Result Fish Bone Diagrams: 03/01/17 05:33 03/01/17 05:33 - Additional Planning My Orders: My Active Orders 03/02/17 06:00 BMP - BASIC METABOLIC PANEL [CHEM] Routine CBC - COMP BLD CT W/AUTO DIFF [HEME] Routine MAGNESIUM [CHEM] Routine 03/02/17 09:00 Lisinopril [Zestril] 1.25 mg PO DAILY Subjective - Subjective Patient Reports: Feeling Better, Other ((Pt reports that she was put on MTX for irritable bowel syndrome, when her diahrrea was hard to manage).) Nursing Reports: No Complaints Objective Vital Signs: Vital Signs - 24 hr 02/28/17 02/28/17 02/28/17 13:00 15:49 17:44 Temperature 37.0 C 38.0 C H 37.7 C H Heart Rate Heart Rate [ 89 118 H 102 H Brachial] Respiratory 18 18 16 Rate Blood Pressure Blood Pressure [Left Brachial artery] Blood Pressure 88/43 L 89/59 L 82/65 L [Right Brachial artery] O2 Saturation 94 94 87 L 02/28/17 02/28/17 02/28/17 17:45 19:24 20:24 Temperature 38.0 C H Heart Rate 72 Heart Rate [ 72 112 H Brachial] Respiratory 18 20 Rate Blood Pressure Blood Pressure [Left Brachial artery] Blood Pressure 94/58 L 91/52 L [Right Brachial artery] O2 Saturation 98 96 02/28/17 03/01/17 03/01/17 23:57 00:12 03:38 Temperature 36.5 C 36.6 C Heart Rate Heart Rate [ 80 93 Brachial] Respiratory 18 20 Rate Blood Pressure 89/49 L Blood Pressure [Left Brachial artery] Blood Pressure 89/49 L 107/66 [Right Brachial artery] O2 Saturation 95 85 L 03/01/17 03/01/17 03/01/17 05:55 06:03 07:10 Temperature 38.3 C H 37.3 C Heart Rate Heart Rate [ 88 Brachial] Respiratory 18 Rate Blood Pressure 106/63 Blood Pressure [Left Brachial artery] Blood Pressure 107/63 [Right Brachial artery] O2 Saturation 94 03/01/17 03/01/17 03/01/17 07:18 07:32 11:02 Temperature 37.3 C 36.6 C Heart Rate 64 Heart Rate [ 99 130 H Brachial] Respiratory 20 16 20 Rate Blood Pressure Blood Pressure 70/47 L 81/54 L [Left Brachial artery] Blood Pressure [Right Brachial artery] O2 Saturation 95 94 Oxygen O2 Source Nasal cannula I&O (Last 24 Hrs): Intake and Output Totals x24h 02/27/17 02/28/17 03/01/17 23:59 23:59 23:59 Intake Total 900 1180 120 Output Total 350 450 200 Balance 550 730 -80 General: No acute distress HEENT: Atraumatic, PERRLA, Mucous membr. moist/pink Neck: Supple, No JVD Neuro: Alert Cardiovascular: No murmurs Respiratory: Breath sounds nml Abdomen: Normal bowel sounds, Soft Extremities: No edema - Results Results: Laboratory Results WBC 9.2 x10^3/uL (4.8-10.8) 03/01/17 05:33 RBC 3.61 10^6/uL (4.20-5.40) L 03/01/17 05:33 Hgb 12.3 g/dL (12.0-16.0) 03/01/17 05:33 Hct 36.8 % (37.0-47.0) L 03/01/17 05:33 MCV 102.0 fL (81.0-99.0) H 03/01/17 05:33 MCH 34.0 pg (27.0-31.0) H 03/01/17 05:33 MCHC 33.4 g/dL (32.0-36.0) 03/01/17 05:33 RDW 14.4 % (12.0-15.0) 03/01/17 05:33 Plt Count 312 10^3/uL (130-450) 03/01/17 05:33 MPV 7.3 fL (7.9-10.8) L 03/01/17 05:33 Neut # 7.5 10^3/uL (1.5-6.6) H 03/01/17 05:33 Lymph # 0.4 10^3/uL (1.5-3.5) L 03/01/17 05:33 [place] # 1.0 10^3/uL (0.0-1.0) 03/01/17 05:33 Eos # 0.2 10^3/uL (0.0-0.7) 03/01/17 05:33 Baso # 0.0 10^3/uL (0.0-0.1) 03/01/17 05:33 Absolute Nucleated RBC 0.00 x10^3/uL 03/01/17 05:33 Nucleated RBCs 0.0 /100WBC 03/01/17 05:33 D-Dimer 216.2 ng/mL (200.0-255.0) 02/25/17 09:45 Sodium 132 mmol/L (135-145) L 03/01/17 05:33 Potassium 4.2 mmol/L (3.5-5.0) 03/01/17 05:33 Chloride 97 mmol/L (101-111) L 03/01/17 05:33 Carbon Dioxide 24 mmol/L (21-32) 03/01/17 05:33 Anion Gap 11.0 (6-13) 03/01/17 05:33 BUN 15 mg/dL (6-20) 03/01/17 05:33 Creatinine 0.8 mg/dL (0.4-1.0) 03/01/17 05:33 Estimated GFR (MDRD) 68 (>89) L 03/01/17 05:33 Glucose 98 mg/dL (70-100) 03/01/17 05:33 Lactic Acid 1.2 mmol/L (0.5-2.2) 02/25/17 20:43 Calcium 8.5 mg/dL (8.5-10.3) 03/01/17 05:33 Total Bilirubin 1.1 mg/dL (0.2-1.0) H 03/01/17 05:33 AST 20 IU/L (10-42) 03/01/17 05:33 ALT 15 IU/L (10-60) 03/01/17 05:33 Alkaline Phosphatase 56 IU/L (42-121) 03/01/17 05:33 Troponin I < 0.04 ng/mL (<0.49) 02/25/17 09:45 B-Natriuretic Peptide 861 pg/mL (5-100) H 02/26/17 06:44 Total Protein 6.3 g/dL (6.7-8.2) L 03/01/17 05:33 Albumin 2.9 g/dL (3.2-5.5) L 03/01/17 05:33 Globulin 3.4 g/dL (2.1-4.2) 03/01/17 05:33 Albumin/Globulin Ratio 0.9 (1.0-2.2) L 03/01/17 05:33 Lipase 49 U/L (22-51) 02/25/17 09:45 TSH 2.72 uIU/mL (0.34-5.60) 02/25/17 09:45 Urine Color YELLOW 02/25/17 15:00 Urine Clarity CLEAR (CLEAR) 02/25/17 15:00 Urine pH 5.5 PH (5.0-7.5) 02/25/17 15:00 Ur Specific [place] <=1.005 (1.002-1.030) 02/25/17 15:00 Urine Protein NEGATIVE mg/dL (NEGATIVE) 02/25/17 15:00 Urine Glucose (UA) NEGATIVE mg/dL (NEGATIVE) 02/25/17 15:00 Urine Ketones NEGATIVE mg/dL (NEGATIVE) 02/25/17 15:00 Urine Occult Blood NEGATIVE (NEGATIVE) 02/25/17 15:00 Urine Nitrite NEGATIVE (NEGATIVE) 02/25/17 15:00 Urine Bilirubin NEGATIVE (NEGATIVE) 02/25/17 15:00 Urine Urobilinogen 0.2 (NORMAL) E.U./dL (NORMAL) 02/25/17 15:00 Ur Leukocyte Esterase TRACE (NEGATIVE) H 02/25/17 15:00 Urine RBC None Seen /HPF (0-5) 02/25/17 15:00 Urine WBC 0-3 /HPF (0-5) 02/25/17 15:00 Ur Squamous Epith Cells MANY Squamous (<= Few) H 02/25/17 15:00 Urine Bacteria Few /HPF (None Seen) 02/25/17 15:00 Ur Microscopic Review INDICATED 02/25/17 15:00 Urine Culture Comments NOT INDICATED 02/25/17 15:00
[2017-03-01] MEDS: DIGOXIN 500 MCG/2 ML AMP IVP SCH (21:20)
[2017-03-02] MEDS: DIGOXIN 500 MCG/2 ML AMP IVP SCH (02:24)
[2017-03-02] MEDS: SODIUM CHLORIDE FLUSH 0.9% 10 ML SYRINGE IVP PRN ×2 (02:26→02:27)
[2017-03-02] MEDS: METOPROLOL TARTRATE 25 MG TABLET PO SCH ×6 (05:42→23:47)
[2017-03-02] MEDS: SODIUM CHLORIDE FLUSH 0.9% 10 ML SYRINGE IVP SCH ×3 (05:43→20:01)
[2017-03-02] MEDS: LEVOTHYROXINE 25 MCG TABLET PO SCH (06:00)
[2017-03-02] MEDS: PANTOPRAZOLE 40 MG TABLET PO SCH (06:00)
[2017-03-02 06:06] LABS: BASOPHILS % (AUTO) 0.4 %; EOSINOPHILS # (AUTO) 0.3 10^3/uL (0.0-0.7); EOSINOPHILS % (AUTO) 4.4 %; HCT - HEMATOCRIT 36.9 % (37.0-47.0); HGB - HEMOGLOBIN 12.2 g/dL (12.0-16.0); LYMPHOCYTES # (AUTO) 0.8 10^3/uL (1.5-3.5); LYMPHOCYTES % (AUTO) 10.5 %; MEAN CORPUSCULAR HEMOGLOBIN 33.9 pg (27.0-31.0); MEAN CORPUSCULAR HGB CONC 33.1 g/dL (32.0-36.0); MEAN CORPUSCULAR VOLUME 102.6 fL (81.0-99.0); MEAN PLATELET VOLUME 7.7 fL (7.9-10.8); MONOCYTES % (AUTO) 13.6 %; NEUTROPHILS # (AUTO) 5.2 10^3/uL (1.5-6.6); NEUTROPHILS % (AUTO) 71.1 %; RED BLOOD COUNT 3.59 10^6/uL (4.20-5.40); RED CELL DISTRIBUTION WIDTH 14.4 % (12.0-15.0); UNCORRECTED WHITE BLOOD COUNT 7.3 x10^3/uL; WHITE BLOOD COUNT 7.3 x10^3/uL (4.8-10.8)
[2017-03-02 06:23] LABS: CALCIUM 8.5 mg/dL (8.5-10.3); CREATININE 0.8 mg/dL (0.4-1.0); POTASSIUM 4.4 mmol/L (3.5-5.0)
[2017-03-02] MEDS: BUDESONIDE 0.5 MG/2 ML NEB INH SCH ×2 (07:48→19:20)
[2017-03-02] MEDS: IPRATROPIUM 0.2 MG/ML NEB INH SCH ×2 (07:48→19:20)
[2017-03-02] MEDS ORDERED: LISINOPRIL 5 MG TABLET PO SCH (09:00)
[2017-03-02] MEDS: PRENATAL VITAMIN TABLET PO SCH (09:05)
[2017-03-02] MEDS: FOLIC ACID 1 MG TABLET PO SCH (09:05)
[2017-03-02] MEDS: ENOXAPARIN 30 MG/0.3 ML SYRINGE SUBQ SCH (09:05)
[2017-03-02] MEDS: ASPIRIN EC 81 MG TABLET PO SCH (09:05)
[2017-03-02] MEDS: DIGOXIN 125 MCG TABLET PO SCH (09:06)
[2017-03-02] MEDS: POLYETHYLENE GLYCOL 3350 17 GM PACKET PO SCH (09:06)
--- NOTE | 2017-03-02 14:45 | PROVIDER PROGRESS NOTE ---
Assessment/Plan - Problem List (1) Dyspnea Qualifiers: Dyspnea type: dyspnea on exertion Qualified Code(s): R06.09 - Other forms of dyspnea Assessment/Plan: Dyspnea type: dyspnea on exertion Qualified Code(s): R06.09 - Other forms of dyspnea Assessment/Plan: Multifactorial: Emphysema: showed on CT; Today on R.A. sat was 96% at rest but dropped to 84% during ambulation She may need home O2 and higher level care such as SNH vs C Pulmonary HTN: moderate-severe by Echo. Acute on chronic diastolic heart failure: no crackles or rales on exam; Echo result shows EF 70% Ruled out ACS: checked cardiac enzyme at ED, which was negative ( been SOB for 1 -2 weeks on exertion Unlikely PE with normal D-dimer level (2) Fever Qualifiers: Fever type: unspecified Qualified Code(s): R50.9 - Fever, unspecified Assessment/Plan: Fever type: unspecified Qualified Code(s): R50.9 - Fever, unspecified Assessment/Plan: Pt had another elevated temp at 0600 today pt is immunocompromised due to Methotrexate use blood culture negative so far; ua negative CT of chest shows no infiltrate WBC is normal and no left shift on differential Will obtain CT of abdomen and pelvis ? viral; will monitor; no antibiotic given (3) Atrial fibrillation with RVR Assessment/Plan: HR isiah overnight, bcause midnite siddiqui of Metoprolol was held based on Hold parameters Then pt was Digitalized overnight Rapid rate is slowly improving with med adjustments to have more spread out meds. Will drop holding parameter to systolic below 90, as Pt runs low BP throughout hospitalization. Will also discontinue JESSICA. Pt has a CHADS score of 1 (age > 75) and is on ASA daily. - Current Meds Current Meds: Current Medications Generic Name Dose Route Start Last Admin Trade Name Freq PRN Reason Stop Dose Admin Acetaminophen 650 mg 02/25/17 18:29 03/01/17 06:04 Tylenol PO 650 mg Q4HR PRN Administration Pain 1 to 4 Acetaminophen/Hydrocodone Bitart 1 tab 02/25/17 18:29 02/26/17 05:38 [place] 5/325 PO 1 tab Q4HR PRN Administration Pain 5 to 7 Aspirin 81 mg 02/26/17 09:00 03/02/17 09:05 Ecotrin PO 81 mg DAILY RUBIO Administration Budesonide 0.5 mg 02/26/17 12:00 03/02/17 07:48 Pulmicort INH 0.5 mg RTBID RUBIO Administration Digoxin 125 mcg 03/02/17 09:00 03/02/17 09:06 Lanoxin PO 125 mcg DAILY RUBIO Administration Enoxaparin Sodium 30 mg 02/26/17 09:00 03/02/17 09:05 Lovenox SUBQ 30 mg DAILY RUBIO Administration Folic Acid 1 mg 02/28/17 11:00 03/02/17 09:05 PO 1 mg DAILY RUBIO Administration Ipratropium [place] 0.5 mg 02/26/17 12:00 03/02/17 07:48 Atrovent INH 0.5 mg RTBID URBIO Administration Levothyroxine Sodium 50 mcg 02/26/17 07:00 03/02/17 06:00 Synthroid PO 50 mcg QDAC RUBIO Administration Metoprolol Tartrate 25 mg 03/02/17 12:28 03/02/17 13:04 Lopressor PO Not Given Q6H RUBIO Pantoprazole Sodium 40 mg 02/26/17 07:00 03/02/17 06:00 Protonix PO 40 mg QDAC RUBIO Administration Polyethylene Glycol 17 gm 02/26/17 09:00 03/02/17 09:06 Miralax PO Not Given DAILY RUBIO Multivit/Folic Acid/Iron 1 tab 02/28/17 12:00 03/02/17 09:05 Trinatal Rx 1 PO 1 tab DAILYWM RUBIO Administration Sodium Chloride 10 ml 02/25/17 18:29 03/02/17 02:27 Normal Saline Flush 0.9% IVP 10 ml PRN PRN Administration NEEDED PER PROVIDER ORDERS Sodium Chloride 10 ml 02/25/17 22:00 03/02/17 14:26 Normal Saline Flush 0.9% IVP 10 ml Q8HR RUBIO Administration - Lab Result Fish Bone Diagrams: 03/02/17 05:41 03/02/17 05:41 - Additional Planning My Orders: My Active Orders 03/02/17 Evaluate and Treat PT [PT] Routine 03/02/17 08:17 Oxygen Saturation [O2 Sat] [RC] DAILY 03/02/17 08:18 Miscellaenous Nursing Order [RC] QSHIFT 03/02/17 12:28 Metoprolol Tartrate [Lopressor] 25 mg PO Q6H Subjective - Subjective Patient Reports: Resting Comfortably Nursing Reports: No Complaints Objective Vital Signs: Vital Signs - 24 hr 03/01/17 03/01/17 03/01/17 16:01 17:39 20:06 Temperature 37.3 C 37.8 C H Heart Rate Heart Rate [ 112 H 118 H Brachial] Heart Rate [ Supine] Respiratory 20 20 Rate Blood Pressure 115/72 Blood Pressure [Left Brachial artery] Blood Pressure 104/62 90/57 L [Right Brachial artery] Blood Pressure [Supine] O2 Saturation 97 98 O2 Saturation [ With Activity] O2 Saturation [ Without Activity] 03/01/17 03/01/17 03/01/17 20:15 21:20 23:47 Temperature Heart Rate 88 122 H Heart Rate [ Brachial] Heart Rate [ Supine] Respiratory 18 Rate Blood Pressure 93/44 L Blood Pressure [Left Brachial artery] Blood Pressure [Right Brachial artery] Blood Pressure [Supine] O2 Saturation O2 Saturation [ With Activity] O2 Saturation [ Without Activity] 03/01/17 03/02/17 03/02/17 23:48 00:20 02:24 Temperature 37.6 C H 37.2 C Heart Rate 92 Heart Rate [ 92 Brachial] Heart Rate [ Supine] Respiratory 18 Rate Blood Pressure Blood Pressure 93/44 L [Left Brachial artery] Blood Pressure [Right Brachial artery] Blood Pressure [Supine] O2 Saturation 96 O2 Saturation [ With Activity] O2 Saturation [ Without Activity] 03/02/17 03/02/17 03/02/17 05:00 05:40 05:42 Temperature 37.7 C H 36.9 C Heart Rate Heart Rate [ 95 84 Brachial] Heart Rate [ Supine] Respiratory 18 18 Rate Blood Pressure 104/76 Blood Pressure 104/76 [Left Brachial artery] Blood Pressure 106/63 [Right Brachial artery] Blood Pressure [Supine] O2 Saturation 95 98 O2 Saturation [ With Activity] O2 Saturation [ Without Activity] 03/02/17 03/02/17 03/02/17 07:50 07:57 09:00 Temperature 37.5 C Heart Rate 87 Heart Rate [ 69 Brachial] Heart Rate [ Supine] Respiratory 20 16 Rate Blood Pressure Blood Pressure 89/62 L [Left Brachial artery] Blood Pressure [Right Brachial artery] Blood Pressure [Supine] O2 Saturation 97 97 O2 Saturation [ With Activity] O2 Saturation [ Without Activity] 03/02/17 03/02/1703/02/17 11:00 11:48 12:17 Temperature Heart Rate Heart Rate [ 101 H Brachial] Heart Rate [ 112 H Supine] Respiratory Rate Blood Pressure Blood Pressure 91/54 L [Left Brachial artery] Blood Pressure 101/61 [Right Brachial artery] Blood Pressure 105/63 [Supine] O2 Saturation 97 O2 Saturation [ 83 L With Activity] O2 Saturation [ 96 Without Activity] 03/02/17 03/02/17 12:23 13:00 Temperature 37.3 C Heart Rate Heart Rate [ 73 Brachial] Heart Rate [ Supine] Respiratory 16 Rate Blood Pressure 90/54 L Blood Pressure 88/49 L [Left Brachial artery] Blood Pressure [Right Brachial artery] Blood Pressure [Supine] O2 Saturation 92 O2 Saturation [ With Activity] O2 Saturation [ Without Activity] Oxygen O2 Source [With Activity] Room air O2 Source [Without Activity] Room air O2 Source Room air I&O (Last 24 Hrs): Intake and Output Totals x24h 02/28/17 03/01/17 03/02/17 23:59 23:59 23:59 Intake Total 1180 707 870 Output Total 450 900 320 Balance 730 -193 550 General: Alert HEENT: Atraumatic, Mucous membr. moist/pink Neck: Supple, No JVD Neuro: Alert Cardiovascular: No murmurs Respiratory: No respiratory distress Abdomen: Normal bowel sounds Extremities: No edema - Results Results: Laboratory Results WBC 7.3 x10^3/uL (4.8-10.8) 03/02/17 05:41 RBC 3.59 10^6/uL (4.20-5.40) L 03/02/17 05:41 Hgb 12.2 g/dL (12.0-16.0) 03/02/17 05:41 Hct 36.9 % (37.0-47.0) L 03/02/17 05:41 MCV 102.6 fL (81.0-99.0) H 03/02/17 05:41 MCH 33.9 pg (27.0-31.0) H 03/02/17 05:41 MCHC 33.1 g/dL (32.0-36.0) 03/02/17 05:41 RDW 14.4 % (12.0-15.0) 03/02/17 05:41 Plt Count 315 10^3/uL (130-450) 03/02/17 05:41 MPV 7.7 fL (7.9-10.8) L 03/02/17 05:41 Neut # 5.2 10^3/uL (1.5-6.6) 03/02/17 05:41 Lymph # 0.8 10^3/uL (1.5-3.5) L 03/02/17 05:41 [place] # 1.0 10^3/uL (0.0-1.0) 03/02/17 05:41 Eos # 0.3 10^3/uL (0.0-0.7) 03/02/17 05:41 Baso # 0.0 10^3/uL (0.0-0.1) 03/02/17 05:41 Absolute Nucleated RBC 0.00 x10^3/uL 03/02/17 05:41 Nucleated RBCs 0.0 /100WBC 03/02/17 05:41 D-Dimer 216.2 ng/mL (200.0-255.0) 02/25/17 09:45 Sodium 129 mmol/L (135-145) L 03/02/17 05:41 Potassium 4.4 mmol/L (3.5-5.0) 03/02/17 05:41 Chloride 96 mmol/L (101-111) L 03/02/17 05:41 Carbon Dioxide 27 mmol/L (21-32) 03/02/17 05:41 Anion Gap 6.0 (6-13) 03/02/17 05:41 BUN 15 mg/dL (6-20) 03/02/17 05:41 Creatinine 0.8 mg/dL (0.4-1.0) 03/02/17 05:41 Estimated GFR (MDRD) 68 (>89) L 03/02/17 05:41 Glucose 95 mg/dL (70-100) 03/02/17 05:41 Lactic Acid 1.2 mmol/L (0.5-2.2) 02/25/17 20:43 Calcium 8.5 mg/dL (8.5-10.3) 03/02/17 05:41 Magnesium 2.0 mg/dL (1.7-2.8) 03/02/17 05:41 Total Bilirubin 1.1 mg/dL (0.2-1.0) H 03/01/17 05:33 AST 20 IU/L (10-42) 03/01/17 05:33 ALT 15 IU/L (10-60) 03/01/17 05:33 Alkaline Phosphatase 56 IU/L (42-121) 03/01/17 05:33 Troponin I < 0.04 ng/mL (<0.49) 02/25/17 09:45 B-Natriuretic Peptide 861 pg/mL (5-100) H 02/26/17 06:44 Total Protein 6.3 g/dL (6.7-8.2) L 03/01/17 05:33 Albumin 2.9 g/dL (3.2-5.5) L 03/01/17 05:33 Globulin 3.4 g/dL (2.1-4.2) 03/01/17 05:33 Albumin/Globulin Ratio 0.9 (1.0-2.2) L 03/01/17 05:33 Lipase 49 U/L (22-51) 02/25/17 09:45 TSH 2.72 uIU/mL (0.34-5.60) 02/25/17 09:45 Urine Color YELLOW 02/25/17 15:00 Urine Clarity CLEAR (CLEAR) 02/25/17 15:00 Urine pH 5.5 PH (5.0-7.5) 02/25/17 15:00 Ur Specific [place] <=1.005 (1.002-1.030) 02/25/17 15:00 Urine Protein NEGATIVE mg/dL (NEGATIVE) 02/25/17 15:00 Urine Glucose (UA) NEGATIVE mg/dL (NEGATIVE) 02/25/17 15:00 Urine Ketones NEGATIVE mg/dL (NEGATIVE) 02/25/17 15:00 Urine Occult Blood NEGATIVE (NEGATIVE) 02/25/17 15:00 Urine Nitrite NEGATIVE (NEGATIVE) 02/25/17 15:00 Urine Bilirubin NEGATIVE (NEGATIVE) 02/25/17 15:00 Urine Urobilinogen 0.2 (NORMAL) E.U./dL (NORMAL) 02/25/17 15:00 Ur Leukocyte Esterase TRACE (NEGATIVE) H 02/25/17 15:00 Urine RBC None Seen /HPF (0-5) 02/25/17 15:00 Urine WBC 0-3 /HPF (0-5) 02/25/17 15:00 Ur Squamous Epith Cells MANY Squamous (<= Few) H 02/25/17 15:00 Urine Bacteria Few /HPF (None Seen) 02/25/17 15:00 Ur Microscopic Review INDICATED 02/25/17 15:00 Urine Culture Comments NOT INDICATED 02/25/17 15:00 Last Dose Date [facility] 03/02/17 05:41 Last Dose Time [facility] 03/02/17 05:41 Digoxin 1.5 ng/mL 03/02/17 05:41
[2017-03-02] MEDS: ACETAMINOPHEN 325 MG TABLET PO PRN (20:00)
[2017-03-03] MEDS: PANTOPRAZOLE 40 MG TABLET PO SCH (05:45)
[2017-03-03] MEDS: LEVOTHYROXINE 25 MCG TABLET PO SCH (05:45)
[2017-03-03] MEDS: SODIUM CHLORIDE FLUSH 0.9% 10 ML SYRINGE IVP SCH (05:54)
[2017-03-03] MEDS: ACETAMINOPHEN 325 MG TABLET PO PRN (06:13)
[2017-03-03] MEDS: METOPROLOL TARTRATE 25 MG TABLET PO SCH (06:13)
[2017-03-03] MEDS: BUDESONIDE 0.5 MG/2 ML NEB INH SCH (07:21)
[2017-03-03] MEDS: IPRATROPIUM 0.2 MG/ML NEB INH SCH (07:21)
[2017-03-03 08:07] VITALS: BP 92/41
[2017-03-03] MEDS ORDERED: IOPAMIDOL-300 50 ML VIAL PO ONE (08:30)
[2017-03-03] MEDS ORDERED: IOPAMIDOL-300 100 ML VIAL IVP ONE (08:30)
[2017-03-03] MEDS: ENOXAPARIN 30 MG/0.3 ML SYRINGE SUBQ SCH (08:35)
[2017-03-03] MEDS: ASPIRIN EC 81 MG TABLET PO SCH (08:35)
[2017-03-03] MEDS: POLYETHYLENE GLYCOL 3350 17 GM PACKET PO SCH (08:35)
[2017-03-03] MEDS: PRENATAL VITAMIN TABLET PO SCH (08:35)
[2017-03-03] MEDS: FOLIC ACID 1 MG TABLET PO SCH (08:35)
[2017-03-03] MEDS: DIGOXIN 125 MCG TABLET PO SCH (08:35)
--- NOTE | 2017-03-03 09:10 | CT Report ---
CT ABDOMEN AND PELVIS WITH CONTRAST: 03/03/2017 CLINICAL INDICATION: Fever, question abscess. TECHNIQUE: Axial CT images of the abdomen and pelvis were obtained with 100 mL Isovue-300 intravenously as well as oral contrast. No previous CT is available for comparison. In accordance with CT protocol optimization, one or more of the following dose reduction techniques were utilized for this exam: automated exposure control, adjustment of mA and/or KV based on patient size, or use of iterative reconstructive technique. FINDINGS: Limited evaluation of the lung bases demonstrates no new infiltrate. Please refer to previous chest CT of 02/25/2017. Abdomen: The liver, spleen, pancreas, and adrenal glands are unremarkable. The gallbladder is not dilated. The kidneys demonstrate cortical cysts. No hydronephrosis or perinephric collection is present. No bowel dilatation, free gas, or free fluid is present. The appendix is seen in the right lower quadrant , and is normal in caliber. There is sigmoid diverticulosis, without CT evidence of diverticulitis. No pelvic adenopathy or free fluid is present. Osseous structures demonstrate degenerative and postoperative changes. IMPRESSION: NO EVIDENT ETIOLOGY FOR PATIENT'S FEVER. DIVERTICULOSIS, WITHOUT CT EVIDENCE OF DIVERTICULITIS. JOB #: [id number] EXT JOB #: [id number] [facility]
--- NOTE | 2017-03-03 12:09 | Discharge Plan ---
Discharge Plan Disposition: 01 Home, Self Care Condition: Fair Prescriptions: Digoxin [Lanoxin] 125 mcg PO DAILY #20 tablet Metoprolol Succinate [Toprol Xl] 100 mg PO BID #60 tab.er.24h Diet: Regular Activity Restrictions: Activity as Tolerated Shower Restrictions: No Driving Restrictions: No Weight Bearing: Full Weight Additional Instructions or Follow Up instructions: DO NOT TAKE Spironolactone DO NOT TAKE Verapimil DO NOT TAKE Lisinopril NOTE THE NEW PILL STRENGTH of Toprol XL 100 mg, DO NOT TAKE the Toprol XL 200 mg strength NOTE there is a NEW PILL: Digoxin and it is to be taken M-F only Restart all other medications See your primary Doctor in 1-2 weeks Follow-Up Care: Outpatient Rehab - PT No Smoking: If you smoke, Please STOP! Call for help. Follow-up with: Chele Easley MD [Primary Care Provider] -
--- NOTE | 2017-03-04 10:23 | DISCHARGE SUMMARY ---
DATE OF ADMISSION: 02/26/2017 DATE OF DISCHARGE: 03/03/2017 This is an 86-year-old white female with a history of atrial fibrillation with a CHADS score of 1 on aspirin, pulmonary hypertension, diastolic heart failure, COPD, hypothyroidism, GERD, osteoarthritis, who presented to the emergency room with complaints of weakness, increasing shortness of breath with any activity ( she had to stop and rest for 10-15 minutes even walking in her house). In the emergency room, she was hypotensive with a systolic blood pressure of 84. After a saline bolus, her shortness of breath worsened, and there were crackles audible. She initially had a fever of 38.8 with no obvious source (no complaints of cough, abdominal symptoms, urinary symptoms or wound). She was admitted for management of the shortness of breath, fever of unknown source, hypotension and weakness. MEDICATIONS PRIOR TO ADMISSION 1. A baby aspirin daily. 2. Nexium 40 mg daily. 3. Synthroid 50 mcg daily. 4. Methotrexate 5 mg once a week. 5. Simvastatin 40 mg at bedtime. 6. Furosemide 40 mg daily. 7. Spironolactone 12.5 mg daily. 8. Verapamil 240 mg daily. 9. Metoprolol tartrate 100 mg p.o. b.i.d. ALLERGIES: NONE. SOCIAL HISTORY: She is an ex-smoker, who quit over 20 years ago. She drinks 1-4 alcoholic drinks per day (vodka). She denies using any illicit drugs. The patient lives alone, but currently a daughter from out of town is staying with her because of the weakness. The patient has a DNR STATUS. HOSPITAL COURSE and DISCHARGE DIAGNOSES: VIRAL SYNDROME: Due to the daily fever, the patient was fully cultured. She had a CT of the chest, as well as CT of the abdomen performed to evaluate for a source of infection to explain the fever. There was no evidence of pneumonia, UTI or abdominal abnormality. Blood cultures were negative. Her white blood count and differential were normal with no left shift or elevation. The impression was that she had a viral syndrome. She was never started on antibiotics and she eventually defervesced. This probably caused her marked weakness at admission. ACUTE ON CHRONIC DIASTOLIC HEART FAILURE: The patient was placed Lasix. Her respiratory status improved slowly. She was ambulating in the final 2 days of the hospitalization and was still desaturating. There were no exams that were consistent with bronchospasm; she was not needing inhalers. Troponin values were all negative. An echocardiogram was done that showed preserved LV ejection fraction, but severe diastolic dysfunction and a dilated left atrium and PA pressure of 75 mmHg. CHRONIC AFIB: Her atrial fibrillation is chronic. Initially, the elevated heart rate was difficult to control. Verapamil needed to be decreased because of low blood pressure and metoprolol was spaced out in order to achieve rate control and she also was digitalized and started on p.o. digoxin daily. In the final days of this hospitalization, her heart rate was controlled even with ambulation at rates between 70 and 90. COPD: The patient was evaluated for a new order for supplemental oxygen. The patient was not hypoxic at rest with O2 saturations of 92% on room air. However , the patient was hypoxic with exertion with room air saturation of 85%. On 2 liters nasal cannula oxygen with exertion, her saturations were 86%. On 3 liters nasal cannula oxygen with exertion, her saturations improved to 95%. The patient will need home oxygen therapy (she tolerates room air at rest, but requires 3 liters nasal cannula oxygen with exertion). IRRITABLE BOWEL SYNDROME: The patient had intermittent diarrhea and reported that this is a chronic and longstanding problem, for which she had seen several specialists in the past and was eventually put on methotrexate for treatment of presumed irritable bowel syndrome. The methotrexate was continued throughout the hospitalization and her bowel movements were similar to her typical pattern. CONDITION AT DISCHARGE: Blood pressure approximately 100/60 with discontinuation of her lisinopril (in order to use higher doses of heart rate slowing medications). Heart rate remained 70-90 on this combination of medications. Her chest exam showed no wheezing, no rales, good breath sounds diffusely. Cardiac exam was irregular with a 1-2/6 systolic murmur, loudest at the lower left sternal border. No gallop and no RV heave. The abdomen was soft with normal bowel sounds. Legs showed no edema throughout the hospitalization. MEDICATIONS AT DISCHARGE Of note: Her spironolactone was stopped, her verapamil was stopped, her lisinopril was stopped, due to low BP. 1. Her pre-admission dose of metoprolol was changed to Toprol-XL 100 mg p.o. b.i.d. 2. She is on new digoxin 0.125 mg p.o. daily on Tuesday through Tuesday only. Digoxin level was 1.5 after digitalization. She will remain on the same doses of 3. Lasix. 4. Colchicine. 5. Baby aspirin. 6. Methotrexate. 7. Nexium. 8. Simvastatin. 9. Synthroid. RECOMMENDATIONS: For outpatient physical therapy for strengthening. JOB #: [id number] EXT JOB #:[id number] MTDFlorencio
== END 2017-03-03 13:15 | disposition home or self-care (01) | DRG 308 ==
LOC: ED 09:16 → OBS 18:29 → MS2 02-26 09:59 → OBSVTOIN 02-26 09:59
PROVIDERS: ADMIT Specialist; ATTEND Internal Medicine
DX: I13.0 Hypertensive heart and chronic kidney disease with heart failure and stage 1 through stage 4 chronic kidney disease, or unspecified chronic kidney disease (principal); I48.2 Chronic atrial fibrillation; T50.3X5A Adverse effect of electrolytic, caloric and water-balance agents, initial encounter; Y92.238 Other place in hospital as the place of occurrence of the external cause; I95.9 Hypotension, unspecified; R50.9 Fever, unspecified; I50.33 Acute on chronic diastolic (congestive) heart failure; D75.89 Other specified diseases of blood and blood-forming organs; E87.1 Hypo-osmolality and hyponatremia; I95.1 Orthostatic hypotension; I34.0 Nonrheumatic mitral (valve) insufficiency; B34.9 Viral infection, unspecified; M10.9 Gout, unspecified; E78.00 Pure hypercholesterolemia, unspecified; I48.92 Unspecified atrial flutter; I27.2 Other secondary pulmonary hypertension; Z86.73 Personal history of transient ischemic attack (TIA), and cerebral infarction without residual deficits; Z87.828 Personal history of other (healed) physical injury and trauma; J44.9 Chronic obstructive pulmonary disease, unspecified; Z96.643 Presence of artificial hip joint, bilateral; R09.02 Hypoxemia; K58.0 Irritable bowel syndrome with diarrhea; N18.3 Chronic kidney disease, stage 3 (moderate); R63.4 Abnormal weight loss; E03.9 Hypothyroidism, unspecified; K21.9 Gastro-esophageal reflux disease without esophagitis; Z66 Do not resuscitate; Z79.899 Other long term (current) drug therapy; Z68.21 Body mass index [BMI] 21.0-21.9, adult; Z79.82 Long term (current) use of aspirin; Z72.89 Other problems related to lifestyle; Z87.891 Personal history of nicotine dependence
CPT/HCPCS: 36415; 71010; 71250; 74177; 80048; 80053; 80162; 81001; 81003; 82270; 83605; 83690; 83735; 83880; 84443; 84484; 85025; 85379; 87040; 87086; 93005; 93306; 94640; 94761; 96361; 96372; 96374; 99284; 99285

== ENCOUNTER 2017-07-26 04:02 | Outpatient (CLI) | payer MEDICARE, BC | END 2017-07-26 04:03 | disposition critical access hospital (66) | LOC: EMS 04:02 | PROVIDERS: ATTEND Surgery | DX: R07.9 Chest pain, unspecified (principal) | CPT/HCPCS: A0425; A0427 ==

== ENCOUNTER 2017-07-26 04:23 | Emergency (ER) | payer MEDICARE, BC ==
--- NOTE | 2017-07-26 04:43 | ED Physician Documentation ---
PD HPI CHEST PAIN - Stated complaint Stated Complaint: CP, AFIB - Chief complaint Chief Complaint: Cardiac - History obtained from History obtained from: Patient, EMS - History of Present Illness Timing - onset: How many hours ago (10) Timing - details: Gradual onset, Intermittant Quality: Pressure Location: Substernal, Left chest Worsened by: Inspiration, Movement, Palpation Associated symptoms: No: Shortness of air, Diaphoresis, Feeling faint / dizzy Similar symptoms before: Work up / diagnostics, Treatment Recently seen: Not recently seen - Additional information Additional information: Patient is an 86 year old female, DNR with a history of a fib, pulmonary htn, aortic stenosis and copd who is presenting to the emergency department for chest pain. patient states that she noticed it this evening around 6pm. patient states that she tried to go to bed but it persisted. patient called ems this morning so that she could be brought in for evaluation. EMS gave nitro enroute which dropped the patient's blood pressure. Patient was slightly hypoxic but states that she normally lives somewhere in the low 90s and has supplemental oxygen that she can use at home. Review of Systems Constitutional: denies: Fever, Chills Eyes: denies: Decreased vision, Photophobia Ears: denies: Ear pain, Drainage/discharge Nose: denies: Congestion Throat: denies: Dental pain / toothache, Oral lesions / sores Cardiac: reports: Chest pain / pressure. denies: Palpitations, Calf pain Respiratory: denies: Dyspnea, Wheezing GI: denies: Nausea, Vomiting : reports: Reviewed and negative Skin: reports: Reviewed and negative Musculoskeletal: denies: Neck pain, Back pain, Extremity pain, Extremity swelling Neurologic: denies: Generalized weakness, Focal weakness, Numbness Immunocompromised: denies: Immunocompromised PD PAST MEDICAL HISTORY - Past Medical History Cardiovascular: Congestive heart failure, Hypertension, High cholesterol, Atrial flutter, Atrial fibrillation, Valve disorder Respiratory: Shortness of breath, Other Neuro: CVA, Head injury Endocrine/Autoimmune: HyPOthyroidism GI: GER[employer]: Other : None HEENT: Chronic sinusitis Psych: None Musculoskeletal: Osteoarthritis Derm: None - Past Surgical History Past Surgical History: Yes Ortho: Hip replacement, Carpal Tunnel surgery Neuro: Other - Present Medications Home Medications: Ambulatory Orders Medication Instructions Recorded Confirmed Aspirin [Aspir 81] 81 mg PO DAILY 09/20/14 07/26/17 Methotrexate 5 mg PO Q7D 09/20/14 07/26/17 Simvastatin 40 mg PO QPM 09/20/14 07/26/17 Colchicine [Mitigare] 0.6 mg PO DAILY PRN 02/26/17 07/26/17 Furosemide 40 mg PO DAILY 02/26/17 07/26/17 Levothyroxine Sodium [Synthroid] 50 mcg PO QDAC 02/26/17 07/26/17 Digoxin [Lanoxin] 125 mcg PO DAILY #20 tablet 03/03/17 07/26/17 Metoprolol Succinate [Toprol Xl] 100 mg PO BID #60 tab.er.24h 03/03/17 07/26/17 Esomeprazole Magnesium [Nexium] 40 mg PO DAILY 07/26/17 07/26/17 - Allergies Allergies/Adverse Reactions: Allergies Allergy/AdvReac Type Severity Reaction Status Date / Time No Known Drug Allergies Allergy Verified 07/26/17 04:30 - Social History Does the pt smoke?: No Smoking Status: Former smoker Does the pt drink ETOH?: Yes Does the pt have substance abuse?: No - Immunizations Immunizations are current?: Yes - POLST Patient has POLST: No POLST Status: DNR PD ED PE NORMAL - Vitals Vital signs reviewed: Yes - HEENT HEENT: Atraumatic - Neck Neck: Supple, no meningeal sign, No JVD - Cardiac Cardiac: RRR - Abdomen Abdomen: Soft, Non tender, Non distended - Derm Derm: Normal color, Warm and dry, No rash - Extremities Extremities: No deformity, No edema, No calf tenderness / cord - Neuro Neuro: Alert and oriented X 3, No motor deficit, No sensory deficit, Normal speech Eye Opening: Spontaneous Motor: Obeys Commands Verbal: Oriented GCS Score: 15 PD ED PE EXPANDED - General General: Alert, No acute distress - HEENT HEENT: Dry mucous membranes - Cardiac Cardiac: Irregularly irregular, Murmur Present - Respiratory Respiratory: No: Distress, Labored, Gasping, Wheezing Results - Vitals Vitals: Vital Signs - 24 hr 07/26/17 07/26/17 04:25 05:03 Temperature 37.7 C H Heart Rate 94 75 Respiratory 20 16 Rate Blood Pressure 92/75 O2 Saturation 88 L Oxygen O2 Source [] Room air O2 Source [] Room air O2 Source Nasal cannula Oxygen Flow Rate 2 - EKG (time done) 0426 Rate: Rate (enter#) (81) Intervals: LBBB QRS: Normal Compare to prior EKG: Unchanged from prior EKG - Labs Labs: Laboratory Tests 07/26/17 07/26/17 07/26/17 04:43 04:43 04:43 WBC 13.6 H RBC 4.59 Hgb 15.3 Hct 46.5 MCV 101.2 H MCH 33.3 H MCHC 32.9 RDW 16.5 H Plt Count 256 MPV 8.5 PT INR APTT Sodium 135 Potassium 4.4 Chloride 102 Carbon Dioxide 23 Anion Gap 10.0 BUN 26 H Creatinine 0.9 Estimated GFR (MDRD) 60 L Glucose 124 H Calcium 9.0 Phosphorus 3.1 Magnesium 2.0 Total Bilirubin 1.4 H AST 23 ALT 15 Alkaline Phosphatase 60 Troponin I < 0.04 B-Natriuretic Peptide Total Protein 7.5 Albumin 4.3 Globulin 3.2 Albumin/Globulin Ratio 1.3 Lipase 19 L 07/26/17 07/26/17 04:43 04:43 WBC RBC Hgb Hct MCV MCH MCHC RDW Plt Count MPV PT 13.2 H INR 1.2 APTT 27.5 Sodium Potassium Chloride Carbon Dioxide Anion Gap BUN Creatinine Estimated GFR (MDRD) Glucose Calcium Phosphorus Magnesium Total Bilirubin AST ALT Alkaline Phosphatase Troponin I B-Natriuretic Peptide 474 H Total Protein Albumin Globulin Albumin/Globulin Ratio Lipase - Rads (name of study) chest x-ray Radiology: Final report received (no acute abnormality) PD MEDICAL DECISION MAKING - ED course Complexity details: reviewed old records, reviewed results, re-evaluated patient , considered differential, d/w patient ED course: Patient was seen and examined at bedside. IV access was gained and labs were drawn, ekg was performed and was unchanged when compared to previous. chest x- rays and labs were within normal limits. Findings were discussed with the patient. there was no benefit for further diagnostics or inpatient care as patient does not want anymore procedures (stents, valves etc) performed. patient required no further work up at this time and was stable for discharge with outpatient follow up. Departure - Departure Disposition: Home, Self Care Clinical Impression: Chest pain, Atrial fibrillation Condition: Good Instructions: ED Chest Pain Pleurisy Follow-Up: Chele Easley MD [Primary Care Provider] - Tomorrow Comments: Your diagnostics today were within normal limits. there were no major abnormalities on imaging or your blood work. You should continue with your home medications and call your doctor today to schedule a follow up appointment. You may return to the emergency department at any time for new, worsening or uncontrollable symptoms.
[2017-07-26] MEDS ORDERED: IPRATROPIUM/ALBUTEROL 3 ML NEB INH STA (04:49)
[2017-07-26 04:55] LABS: INR 1.2 (0.8-1.2); PT - PROTHROMBIN TIME 13.2 secs (9.9-12.6)
--- NOTE | 2017-07-26 04:55 | XRAY Report ---
EXAM: CHEST RADIOGRAPHY EXAM DATE: 07/26/2017 04:44 AM. CLINICAL HISTORY: Chest pain. COMPARISON: 05/20/2016. TECHNIQUE: 1 view. FINDINGS: Lungs/Pleura: No alveolar consolidation or pleural effusion. No pneumothorax. Bronchial wall thickeni ng. Mediastinum: Heart size upper normal. Aortic atherosclerosis. Other: None. IMPRESSION: 1. Borderline heart size. 2. Bronchial wall thickening, possibly due to bronchitis or reactive airways disease. [facility] Referring Provider Line: [phone] SITE ID: [id number]
--- NOTE | 2017-07-26 04:55 | XRAY Preliminary Report ---
Exam: XR CHEST 1 VIEW X-RAY IMPRESSION: 1. Borderline heart size. 2. Bronchial wall thickening, possibly due to bronchitis or reactive airways disease. [facility] SITE ID: [id number]
[2017-07-26 04:58] LABS: BASOPHILS % (AUTO) 0.8 %; HGB - HEMOGLOBIN 15.3 g/dL (12.0-16.0); MEAN CORPUSCULAR HEMOGLOBIN 33.3 pg (27.0-31.0); MEAN CORPUSCULAR HGB CONC 32.9 g/dL (32.0-36.0); MEAN CORPUSCULAR VOLUME 101.2 fL (81.0-99.0); MEAN PLATELET VOLUME 8.5 fL (7.9-10.8); MONOCYTES % (AUTO) 8.5 %; NEUTROPHILS % (AUTO) 83.7 %; PLT - PLATELET COUNT 256 10^3/uL (130-450); RED BLOOD COUNT 4.59 10^6/uL (4.20-5.40); RED CELL DISTRIBUTION WIDTH 16.5 % (12.0-15.0); WHITE BLOOD COUNT 13.6 x10^3/uL (4.8-10.8)
[2017-07-26 05:04] LABS: ALBUMIN 4.3 g/dL (3.2-5.5); ALBUMIN/GLOBULIN RATIO 1.3 (1.0-2.2); BILIRUBIN,TOTAL 1.4 mg/dL (0.2-1.0); CREATININE 0.9 mg/dL (0.4-1.0); PHOSPHORUS 3.1 mg/dL (2.5-4.6); TOTAL PROTEIN 7.5 g/dL (6.7-8.2)
[2017-07-26 05:14] LABS: ABNORMAL LYMPHS % (MANUAL) 0 %
[2017-07-26 05:32] LABS: BAND NEUTROPHILS % (MANUAL) 4 %; DIFFERENTIAL COMMENT MANUAL DIFFERENTIAL; LYMPHOCYTES % (MANUAL) 3 %; NEUTROPHILS # (MANUAL) 11.7 10^3/uL (1.5-6.6); NEUTROPHILS % (MANUAL) 82 %; PLATELET ESTIMATE, MANUAL NORMAL (130-450,000) (NORMAL); PLATELET MORPHOLOGY NORMAL APPEARANCE (NORMAL); RBC MORPHOLOGY (MULTIPLE) 1+ STOMATOCYTES (NORMAL)
[2017-07-26 05:34] VITALS: BP 92/76
== END 2017-07-26 06:21 | disposition home or self-care (01) ==
LOC: EDBD → EDUNIT# → ED 04:23 → SUPCPDRO 04:23 → ED 06:21
DX: R07.9 Chest pain, unspecified (principal); I48.91 Unspecified atrial fibrillation; I44.7 Left bundle-branch block, unspecified; I11.0 Hypertensive heart disease with heart failure; I50.9 Heart failure, unspecified; I35.0 Nonrheumatic aortic (valve) stenosis; E03.9 Hypothyroidism, unspecified; E78.00 Pure hypercholesterolemia, unspecified; Z96.649 Presence of unspecified artificial hip joint; Z79.82 Long term (current) use of aspirin; Z86.73 Personal history of transient ischemic attack (TIA), and cerebral infarction without residual deficits
CPT/HCPCS: 36415; 71045; 80053; 83690; 83735; 83880; 84100; 84484; 85025; 85610; 85730; 93005; 94640; 99284; J7620

== ENCOUNTER 2017-12-09 10:10 | Emergency (ER) | payer MEDICARE, BC ==
--- NOTE | 2017-12-09 11:10 | CT Report ---
EXAM: CT HEAD EXAM DATE: 12/09/2017 10:58 AM. CLINICAL HISTORY: Acute pain due to trauma. COMPARISON: 11/29/2012. TECHNIQUE: Multiaxial CT images were obtained from the foramen magnum to the vertex. Reformats: Coron al. IV contrast: None. In accordance with CT protocol optimization, one or more of the following dose reduction techniques w ere utilized for this exam: automated exposure control, adjustment of mA and/or KV based on patient s ize, or use of iterative reconstructive technique. FINDINGS: Parenchyma: No intraparenchymal hemorrhage. No evidence of mass, midline shift, or CT findings of inf arction. Parsons-white differentiation is distinct. Extraaxial Spaces: Normal for age. No subdural or epidural collections identified. Ventricles: Normal in size and position. Sinuses and Orbits: Imaged paranasal sinuses, orbits, and mastoids show no significant abnormality. Bones: Stable old shelli holes are seen in the right lateral calvarium. A scalp contusion is seen overl rudy the left calvarium. No skull fracture is demonstrated. Other: None. IMPRESSION: 1. No acute intracranial abnormality demonstrated. 2. Mild left-sided superficial scalp contusion. Skull remains intact. [facility] Referring Provider Line: [phone] SITE ID: [id number]
--- NOTE | 2017-12-09 11:23 | ED Physician Documentation ---
PD HPI HEAD INJURY - Stated complaint Stated Complaint: GLF - Chief complaint Chief Complaint: Laceration - History obtained from History obtained from: Patient - History of Present Illness Mechanism of head injury: Fell Where head injury occurred: Home Location of injury: Left Associated symptoms: No: LOC, Nausea / vomiting, Neck pain - Additional information Additional information: The patient is an 87-year-old female who fell this morning when she stumbled in her kitchen. She hit the left side of her head on tile floor. She denies loss of consciousness. She denies headache, nausea or vomiting. She does not take anticoagulation except for 1 baby aspirin daily. Past medical history is significant for an intracranial hemorrhage from a previous fall, requiring airlift to [facility] where she underwent surgical evacuation of the hemorrhage. Review of Systems Constitutional: denies: Fever Eyes: denies: Decreased vision Ears: denies: Tinnitus/ringing Nose: denies: Congestion Cardiac: denies: Chest pain / pressure, Palpitations Respiratory: denies: Dyspnea, Cough GI: denies: Abdominal Pain, Nausea, Vomiting : denies: Dysuria Skin: reports: Lesions (Left scalp.). denies: Rash Musculoskeletal: denies: Neck pain, Back pain, Extremity pain Neurologic: reports: Head injury. denies: Focal weakness, Numbness, Headache, LOC PD PAST MEDICAL HISTORY - Past Medical History Past Medical History: Yes Cardiovascular: Congestive heart failure, Hypertension, High cholesterol, Atrial flutter, Atrial fibrillation, Valve disorder Respiratory: Shortness of breath, Other Endocrine/Autoimmune: HyPOthyroidism GI: GERD COOK STATION: Other : None HEENT: Chronic sinusitis Psych: None Musculoskeletal: Osteoarthritis Derm: None - Past Surgical History Past Surgical History: Yes Ortho: Hip replacement, Carpal Tunnel surgery Neuro: Other - Present Medications Home Medications: Ambulatory Orders Medication Instructions Recorded Confirmed Aspirin [Aspir 81] 81 mg PO DAILY 09/20/14 07/26/17 Methotrexate 5 mg PO Q7D 09/20/14 07/26/17 Simvastatin 40 mg PO QPM 09/20/14 07/26/17 Colchicine [Mitigare] 0.6 mg PO DAILY PRN 02/26/17 07/26/17 Furosemide 40 mg PO DAILY 02/26/17 07/26/17 Levothyroxine Sodium [Synthroid] 50 mcg PO QDAC 02/26/17 07/26/17 Digoxin [Lanoxin] 125 mcg PO DAILY #20 tablet 03/03/17 07/26/17 Metoprolol Succinate [Toprol Xl] 100 mg PO BID #60 tab.er.24h 03/03/17 07/26/17 Esomeprazole Magnesium [Nexium] 40 mg PO DAILY 07/26/17 07/26/17 - Allergies Allergies/Adverse Reactions: Allergies Allergy/AdvReac Type Severity Reaction Status Date / Time No Known Drug Allergies Allergy Verified 12/09/17 10:15 - Social History Does the pt smoke?: No Smoking Status: Never smoker Does the pt drink ETOH?: Yes Does the pt have substance abuse?: No - Immunizations Immunizations are current?: Yes - POLST Patient has POLST: No POLST Status: DNR PD ED PE NORMAL - Vitals Vital signs reviewed: Yes (Normal) - General General: Alert and oriented X 3, Well developed/nourished - HEENT HEENT: PERRL, EOMI, Ears normal, Pharynx benign, Other - Neck Neck: No bony TTP - Cardiac Cardiac: RRR - Respiratory Respiratory: No respiratory distress, Clear bilaterally, Other (No chest wall tenderness to palpation.) - Abdomen Abdomen: Soft, Non tender - Back Back: No spinal TTP - Derm Derm: No rash - Extremities Extremities: No tenderness to palpate, Normal ROM s pain - Neuro Neuro: Alert and oriented X 3, No motor deficit, No sensory deficit, Normal speech Results - Vitals Vitals: Vital Signs - 24 hr 12/09/17 12/09/17 10:13 11:35 Temperature 36.1 C L 36.4 C L Heart Rate 63 55 L Respiratory 16 18 Rate Blood Pressure 106/76 141/77 H O2 Saturation 90 L 95 Oxygen O2 Source [] Room air O2 Source [] Room air O2 Source Room air - Rads (name of study) Head CT w/o Radiology: Prelim report reviewed, EMP read contemporaneously, See rad report ( No acute intracranial abnormality. No skull fracture. Superficial soft tissue contusion left scalp.) PD MEDICAL DECISION MAKING - ED course Complexity details: reviewed results, re-evaluated patient, considered differential, d/w patient ED course: The patient's presentation is significant for a large left scalp hematoma. CT scan of her head reveals no acute intracranial abnormality or skull fracture. Her clinical exam does not suggest need for other imaging studies. Treatment in the emergency department included administration of acetaminophen 650 mg orally. I discussed with her the results of the CT scan, expected course of injury, symptomatic treatment and outpatient follow-up, as well as potentially worrisome signs or symptoms that should prompt reevaluation in the emergency department. Departure - Departure Disposition: 01 Home, Self Care Clinical Impression: Fall Qualifiers: Encounter type: initial encounter Qualified Code(s): W19.XXXA - Unspecified fall, initial encounter Scalp contusion Qualifiers: Encounter type: initial encounter Qualified Code(s): S00.03XA - Contusion of scalp, initial encounter Condition: Stable Instructions: ED Head Injury Closed Follow-Up: Chele Easley MD [Provider Admit Priv/Credential] - Comments: Apply ice pack to the injured area of your scalp intermittently for the next 3 days. You can use Tylenol every 4-6 hours if needed for headache or discomfort. Follow up with your primary physician if not completely resolved within 2 weeks. Return to the emergency department if you develop increasing headache, persistent vomiting, or otherwise worsening symptoms. Discharge Date/Time: 12/09/17 11:38
[2017-12-09] MEDS ORDERED: ACETAMINOPHEN 325 MG TABLET PO STA (11:24)
[2017-12-09 11:37] VITALS: BP 141/77
== END 2017-12-09 11:38 | disposition home or self-care (01) ==
LOC: ED 10:10
DX: S00.03XA Contusion of scalp, initial encounter (principal); W01.198A Fall on same level from slipping, tripping and stumbling with subsequent striking against other object, initial encounter; Y92.000 Kitchen of unspecified non-institutional (private) residence as the place of occurrence of the external cause; Z87.820 Personal history of traumatic brain injury; I11.0 Hypertensive heart disease with heart failure; I50.9 Heart failure, unspecified; Z79.82 Long term (current) use of aspirin
CPT/HCPCS: 70450; 99283; A9270

== ENCOUNTER 2018-01-16 08:55 | Observation (INO) | payer MEDICARE, BC ==
[2018-01-16] MEDS ORDERED: SODIUM CHLORIDE 0.9% 1,000 ML IV ONE (09:11)
--- NOTE | 2018-01-16 09:12 | ED Physician Documentation ---
History of Present Illness - Stated complaint Stated Complaint: DIZZY - Chief complaint Chief Complaint: Cardiac - Additonal information Additional information: hx from pt 87 f hx a fib on dig and beta gilmer no blood thinners 2/2 fall and ICH 4 years ago fell a m kristopher - seen in ED - had neg CTH, no c spine since then has continued MOTA and psterior neck pain and feels profoundly weak whenver she stands up or walks no recent med changes no fever cough dyspnea NVD urinary sx bloody or black BM no CP or AP arrives profoundly bradycardiac Review of Systems Constitutional: denies: Fever Throat: denies: Sore throat Cardiac: denies: Chest pain / pressure, Palpitations Respiratory: denies: Dyspnea, Cough GI: denies: Abdominal Pain, Nausea, Vomiting, Diarrhea, Bloody / black stool : denies: Dysuria Musculoskeletal: reports: Neck pain Neurologic: reports: Generalized weakness, Headache, Head injury. 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 HEENT: Chronic sinusitis Psych: None Musculoskeletal: Osteoarthritis Derm: None - Past Surgical History Past Surgical History: Yes Ortho: Hip replacement, Carpal Tunnel surgery Neuro: Other - Present Medications Home Medications: Ambulatory Orders Medication Instructions Recorded Confirmed Aspirin [Aspir 81] 81 mg PO DAILY 09/20/14 07/26/17 Methotrexate 5 mg PO Q7D 09/20/14 07/26/17 Simvastatin 40 mg PO QPM 09/20/14 07/26/17 Colchicine [Mitigare] 0.6 mg PO DAILY PRN 02/26/17 07/26/17 Furosemide 40 mg PO DAILY 02/26/17 07/26/17 Levothyroxine Sodium [Synthroid] 50 mcg PO QDAC 02/26/17 07/26/17 Digoxin [Lanoxin] 125 mcg PO DAILY #20 tablet 03/03/17 07/26/17 Metoprolol Succinate [Toprol Xl] 100 mg PO BID #60 tab.er.24h 03/03/17 07/26/17 Esomeprazole Magnesium [Nexium] 40 mg PO DAILY 07/26/17 07/26/17 - Allergies Allergies/Adverse Reactions: Allergies Allergy/AdvReac Type Severity Reaction Status Date / Time No Known Drug Allergies Allergy Verified 12/09/17 10:15 - Social History Does the pt smoke?: No Smoking Status: Never smoker Does the pt drink ETOH?: Yes Does the pt have substance abuse?: No - Immunizations Immunizations are current?: Yes - POLST Patient has POLST: No POLST Status: DNR PD ED PE NORMAL - Vitals Vital signs reviewed: Yes (jann) - General General: Alert and oriented X 3 - HEENT HEENT: Atraumatic, PERRL - Neck Neck: Other (mild low c spine TTP) - Cardiac Cardiac: RRR (slow) - Respiratory Respiratory: No respiratory distress, Clear bilaterally - Abdomen Abdomen: Soft, Non tender - Derm Derm: Normal color - Neuro Neuro: Alert and oriented X 3, No motor deficit, No sensory deficit, Normal speech, Other (anxious and shaky) Eye Opening: Spontaneous Motor: Obeys Commands Verbal: Oriented GCS Score: 15 Results - Vitals Vitals: Vital Signs - 24 hr 01/16/18 01/16/18 01/16/18 09:03 09:04 10:17 Temperature 36.3 C L 36.3 C L Heart Rate 40 L 40 L 52 L Respiratory 18 18 16 Rate Blood Pressure 125/73 125/73 122/70 O2 Saturation 96 96 98 Oxygen O2 Source [] Room air O2 Source [] Room air O2 Source Room air - EKG (time done) 0904 Rate: Rate (enter#) (40) Rhythm: Sinus bradycardia Intervals: LBBB Ischemia: Normal ST segments Compare to prior EKG: Other (LBBB not new) - Labs Labs: Laboratory Tests 01/16/18 01/16/18 01/16/18 09:20 09:20 09:20 WBC 10.0 RBC 4.28 Hgb 15.2 Hct 45.7 MCV 106.6 H MCH 35.6 H MCHC 33.4 RDW 15.2 H Plt Count 236 MPV 8.4 Neut # (Auto) 7.6 H Lymph # (Auto) 1.0 L [place] # (Auto) 0.8 Eos # (Auto) 0.5 Baso # (Auto) 0.1 Absolute Nucleated RBC 0.00 Nucleated RBC % 0.0 Sodium 132 L Potassium 5.0 Chloride 97 L Carbon Dioxide 25 Anion Gap 10.0 BUN 28 H Creatinine 1.9 H Estimated GFR (MDRD) 25 L Glucose 84 Calcium 8.9 Troponin I < 0.04 Last Dose Date unk Last Dose Time unk Digoxin 1.5 - Rads (name of study) CTH Radiology: See rad report (no acute) CT CS Radiology: See rad report (no acute, degen changes) CXR Radiology: See rad report (no acute infiltrate, possible COPD) PD MEDICAL DECISION MAKING - ED course ED course: profound sinus jann with orthostatic sx per pt pace pads placed on BB and dig will check labs and re-image CTH given persistent sx and also CT CS will plan to admit to tele and presume HR will improve as dig and BB wear off asked ENAMEL APPLIER to eben hospitalist at 1050 - Sepsis Event Vital Signs: Vital Signs - 24 hr 01/16/18 01/16/18 01/16/18 09:03 09:04 10:17 Temperature 36.3 C L 36.3 C L Heart Rate 40 L 40 L 52 L Respiratory 18 18 16 Rate Blood Pressure 125/73 125/73 122/70 O2 Saturation 96 96 98 Oxygen O2 Source [] Room air O2 Source [] Room air O2 Source Room air Departure - Departure Disposition: ED Place in Observation Clinical Impression: Bradycardia, Renal insufficiency
[2018-01-16 09:39] LABS: BASOPHILS # (AUTO) 0.1 10^3/uL (0.0-0.1); BASOPHILS % (AUTO) 0.6 %; EOSINOPHILS # (AUTO) 0.5 10^3/uL (0.0-0.7); EOSINOPHILS % (AUTO) 5.1 %; HGB - HEMOGLOBIN 15.2 g/dL (12.0-16.0); LYMPHOCYTES % (AUTO) 10.1 %; MEAN CORPUSCULAR HEMOGLOBIN 35.6 pg (27.0-31.0); MEAN CORPUSCULAR HGB CONC 33.4 g/dL (32.0-36.0); MEAN CORPUSCULAR VOLUME 106.6 fL (81.0-99.0); MEAN PLATELET VOLUME 8.4 fL (7.9-10.8); MONOCYTES # (AUTO) 0.8 10^3/uL (0.0-1.0); MONOCYTES % (AUTO) 8.3 %; NEUTROPHILS # (AUTO) 7.6 10^3/uL (1.5-6.6); NEUTROPHILS % (AUTO) 75.9 %; PLT - PLATELET COUNT 236 10^3/uL (130-450); RED BLOOD COUNT 4.28 10^6/uL (4.20-5.40); RED CELL DISTRIBUTION WIDTH 15.2 % (12.0-15.0)
[2018-01-16 09:55] LABS: BUN - BLOOD UREA NITROGEN 28 mg/dL (6-20); CALCIUM 8.9 mg/dL (8.5-10.3); CARBON DIOXIDE - CO2 25 mmol/L (21-32); CHLORIDE 97 mmol/L (101-111); CREATININE 1.9 mg/dL (0.4-1.0); DIGOXIN 1.5 ng/mL; GFR - MDRD 25 (>89); GLUCOSE 84 mg/dL (70-100); SODIUM 132 mmol/L (135-145)
--- NOTE | 2018-01-16 10:19 | CT Report ---
Procedure Date: 01/16/2018 Accession Number: [id number] / [id number] Procedure: CT - Head W/O CPT Code: FULL RESULT: EXAM: CT HEAD EXAM DATE: 01/16/2018 10:05 AM. CLINICAL HISTORY: Logan weak fall. Dizziness since fall a month ago. Bradycardia. COMPARISON: Head CT 12/09/2017. TECHNIQUE: Multiaxial CT images were obtained from the foramen magnum to the vertex. Reformats: Coronal. IV contrast: None. In accordance with CT protocol optimization, one or more of the following dose reduction techniques were utilized for this exam: automated exposure control, adjustment of mA and/or KV based on patient size, or use of iterative reconstructive technique. FINDINGS: Parenchyma: No intraparenchymal hemorrhage. No evidence of mass, midline shift, or CT findings of acute infarction. Parsons-white differentiation is distinct. Diffuse chronic microangiopathic white matter changes are evident. Extraaxial Spaces: Normal for age. No subdural or epidural collections identified. Ventricles: The ventricles and cortical sulci are enlarged, consistent with age-related tissue loss. Sinuses and orbits: Imaged paranasal sinuses, orbits, and mastoids show no significant abnormality. Bones: Old right-sided shelli holes. No recent fracture evident. Other: Atherosclerotic arterial calcifications. IMPRESSION: Generalized age-related cortical atrophic changes without evidence of acute intracranial abnormality. [facility]
--- NOTE | 2018-01-16 10:22 | XRAY Report ---
Procedure Date: 01/16/2018 Accession Number: [id number] / [id number] Procedure: XR - Chest 2 View X-Ray CPT Code: 34152 FULL RESULT: EXAM: CHEST RADIOGRAPHY EXAM DATE: 01/16/2018 10:06 AM. CLINICAL HISTORY: Weakness. COMPARISON: Chest x-ray 07/26/2017. TECHNIQUE: 2 views. FINDINGS: Lungs/Pleura: No focal opacities evident. No pleural effusion. No pneumothorax. Prominent lung volumes. Mediastinum: Atherosclerotic aortic calcifications. Other: Diffuse osteopenia. Multilevel thoracic spine degenerative changes. IMPRESSION: 1. No consolidation evident. 2. Prominent lung volumes, question COPD. [facility]
--- NOTE | 2018-01-16 10:28 | CT Report ---
Procedure Date: 01/16/2018 Accession Number: [id number] / [id number] Procedure: CT - Cervical Spine W/O CPT Code: FULL RESULT: EXAM: CT CERVICAL SPINE WITHOUT CONTRAST DATE: 01/16/2018 10:05 AM. HISTORY: Fall a month ago. Neck pain. COMPARISONS: None. TECHNIQUE: Thin-section axial images were acquired of the cervical spine without contrast. Post-processing: Coronal and sagittal reformats. Other: None. In accordance with CT protocol optimization, one or more of the following dose reduction techniques were utilized for this exam: automated exposure control, adjustment of mA and/or KV based on patient size, or use of iterative reconstructive technique. FINDINGS: Alignment: Mild convex left cervical scoliosis. 2 mm grade 1 retrolisthesis of C5 on C6 vertebral body. Minimal grade 1 anterolisthesis of C2 on C3 vertebral body. Straightening of normal cervical lordosis with minimal generalized kyphosis from C3 to C6 level. Bones: No fracture or bone lesion. Interspace Levels/Facets: C1-C2: Degenerative changes in the pre-dens interval with marginal osteophytes. Sclerosis along the superior aspect of dens. Subchondral cysts also noted. Degenerative changes along the C1-C2 lateral masses, greater on the left with subchondral cyst formation and marginal spurring. C2-C3: Left facet hypertrophy. C3-C4: Moderate to severe right neural foraminal narrowing from uncovertebral joint and facet hypertrophy. Moderate left foraminal narrowing from similar changes. Loss of disk space height. C4-C5: Moderate right and mild to moderate left neural foraminal narrowing from uncovertebral joint hypertrophy. Right facet is partially ankylosed. C5-C6: Effacement of ventral thecal sac due to broad posterior disk osteophyte complex. Moderate bilateral neural foramina narrowing from uncovertebral joint hypertrophy, more pronounced on the right. C6-C7: Prominent left anterolateral bridging osteophyte. C7-T1: Loss of disk space height. Musculature: Normal. No fatty atrophy. Other: The paravertebral and prevertebral soft tissues are unremarkable. There is centrilobular emphysematous changes in the lung apices. IMPRESSION: 1. No cervical spine fracture. 2. Moderate to severe multilevel degenerative changes. 3. Emphysema noted within the lung apices. [facility]
[2018-01-16] MEDS ORDERED: PROMETHAZINE 25 MG/1 ML VIAL IM PRN (12:23)
[2018-01-16] MEDS ORDERED: SODIUM CHLORIDE FLUSH 0.9% 10 ML SYRINGE IVP PRN (12:23)
[2018-01-16] MEDS ORDERED: COLCHICINE 0.6 MG TABLET PO PRN (12:27)
[2018-01-16] MEDS: ACETAMINOPHEN 325 MG TABLET PO PRN (16:08)
[2018-01-16] MEDS: SODIUM CHLORIDE FLUSH 0.9% 10 ML SYRINGE IVP SCH (16:09)
[2018-01-16] MEDS: ASPIRIN EC 81 MG TABLET PO SCH (16:09)
[2018-01-16] MEDS ORDERED: ATORVASTATIN 10 MG TABLET PO SCH (21:00)
--- NOTE | 2018-01-17 01:18 | HISTORY & PHYSICAL EXAMINATION ---
DATE OF SERVICE: 01/16/2018 Physician: Melodie Neal MD HISTORY OF PRESENT ILLNESS: This is an 87-year-old white female with history of irritable bowel syndrome on methotrexate, hypertension on medications, paroxysmal atrial fibrillation on aspirin (she has had prior bleeding and history of falls, therefore, no anticoagulation), and history of COPD. The patient was admitted here approximately a month ago for a viral syndrome, COPD exacerbation and rapid atrial fibrillation. Her medications required adjustment for the atrial fibrillation. She was sent home on new oxygen ordered to be used with activity. The patient apparently fell at home without syncope, hitting her forehead several weeks ago. She presented to the emergency room and had full x-rays and evaluation. No abnormality was found, including stable vital signs. The patient felt fine after this, except for some ecchymoses on the face. Over the last two days, she describes having dizziness when she stands. There has been no syncope. She denies chest pain or shortness of breath. She presented to the emergency room because of severe dizziness and was found to have marked bradycardia win sinus rhythm with heart rates in the 30s and 40s and is being admitted for management of her slow heart rate with adjustment of medication. PAST MEDICAL HISTORY 1. COPD on oxygen with activity (She admits she does not like to use this) 2. Irritable bowel syndrome on methotrexate. 3. Paroxysmal atrial fibrillation with aspirin, no anticoagulation. 4. Hypertension. 5. Pulmonary hypertension. ALLERGIES: NONE. MEDICATIONS 1. Zyrtec p.r.n. 2. Tylenol p.r.n. 3. Ferrous gluconate 324 daily. 4. Multivitamin daily. 5. Methotrexate 5 mg every Tuesday. 6. Lasix 40 mg daily. 7. Digoxin 0.125 mg daily. 8. Lasix 40 mg daily. 9. Baby aspirin daily. 10. Simvastatin 40 mg every evening. 11. Toprol-XL 100 mg b.i.d. 12. Synthroid 50 mcg daily. 13. Lisinopril 2.5 mg daily. 14. Nexium 40 mg daily. 15. Allopurinol 100 mg daily. FAMILY HISTORY: No inherited diseases. SOCIAL HISTORY: She lives alone, she is a nonsmoker who never smoked, drinks very rare alcohol. No history of illicit drug use. REVIEW OF SYSTEMS: Comprehensive review of systems was performed and the pertinent positives are listed above. The rest are negative. PHYSICAL EXAMINATION GENERAL: Elderly white female. She is in no distress. She is in bed with head of bed elevated. VITAL SIGNS: Blood pressure 145/60, heart rate is 30-60 in sinus rhythm, afebrile, room air saturation 94%. HEENT: Unremarkable. NECK: Shows no JVD in a vertical position. No carotid bruits. LUNGS: Clear. HEART: Sounds normal. ABDOMEN: Soft, nontender, benign. EXTREMITIES: No clubbing, cyanosis, edema. NEUROLOGIC: Intact. LABORATORY DATA: Sodium 132, BUN 28, creatinine 1.9. Troponin not detectable at less than 0.04. White blood count 10, hemoglobin 15, platelet count normal at 236. Digoxin level 1.5. No urinalysis or INR were done. IMAGING STUDIES: Head CT was done today that showed no fracture, no mass or bleeding, but generalized atrophy was seen. She had a chest x-ray done that showed no consolidation and probable COPD present. She had a cervical spine CT that showed no cervical spine fracture, moderate degenerative changes and emphysema of the lung apices. IMPRESSION/DIAGNOSES 1. Bradycardia, symptomatic. 2. Dizziness. 3. Fall without syncope and no severe trauma, several weeks ago. 4. Pulmonary hypertension. 5. Hypertension. 6. Chronic obstructive pulmonary disease. PLAN 1. Place the patient in Observation status on telemetry. 2. Stop her beta-gilmer and her digoxin and allow this to wash out. 3. Have topical backup pacemaker available if there should be a more severe bradycardic episode, for temporary pacing. 4. I would recommend no further digoxin use, given her advanced age, mild elevation of creatinine and potential for digoxin toxicity therefore. 5. Resume her beta-gilmer when heart rates are over 60-80. 6. Check orthostatic vital signs. 7. Continue with her other medications for IBS, COPD. CODE STATUS: DNR. DEEP VEIN THROMBOSIS PROPHYLAXIS: Sequential compression devices. ATTESTATION: The patient is expected to be discharged or transferred to another facility within 96 hours: Yes. cc: Chele Easley MD TD: 01/16/2018 19:53 MTDD
[2018-01-17] MEDS: SODIUM CHLORIDE FLUSH 0.9% 10 ML SYRINGE IVP SCH ×2 (06:01→09:11)
[2018-01-17] MEDS: ACETAMINOPHEN 325 MG TABLET PO PRN ×3 (06:06→19:13)
[2018-01-17] MEDS ORDERED: LEVOTHYROXINE 25 MCG TABLET PO SCH (07:00)
[2018-01-17] MEDS ORDERED: LISINOPRIL 5 MG TABLET PO SCH (09:00)
[2018-01-17] MEDS ORDERED: POLYETHYLENE GLYCOL 3350 17 GM PACKET PO SCH (09:00)
[2018-01-17] MEDS ORDERED: FAMOTIDINE 20 MG TABLET PO SCH (09:00)
[2018-01-17] MEDS: ASPIRIN EC 81 MG TABLET PO SCH (09:10)
--- NOTE | 2018-01-17 10:48 | Discharge Plan ---
Discharge Plan Disposition: 01 Home, Self Care Condition: Stable Diet: Low Sodium Activity Restrictions: Activity as Tolerated Shower Restrictions: No Driving Restrictions: No Weight Bearing: Full Weight No Smoking: If you smoke, Please STOP! Call for help. Follow-up with: Chele Easley MD [Primary Care Provider] -
[2018-01-17 11:16] LABS: HGB - HEMOGLOBIN 15.1 g/dL (12.0-16.0); MEAN CORPUSCULAR HEMOGLOBIN 35.7 pg (27.0-31.0); MEAN CORPUSCULAR HGB CONC 33.6 g/dL (32.0-36.0); MEAN CORPUSCULAR VOLUME 106.2 fL (81.0-99.0); MEAN PLATELET VOLUME 8.3 fL (7.9-10.8); RED BLOOD COUNT 4.24 10^6/uL (4.20-5.40); RED CELL DISTRIBUTION WIDTH 15.4 % (12.0-15.0)
[2018-01-17 11:22] LABS: CALCIUM 8.6 mg/dL (8.5-10.3); CREATININE 1.2 mg/dL (0.4-1.0)
--- NOTE | 2018-01-17 12:13 | DISCHARGE SUMMARY ---
Discharge Summary Admit Date: 01/16/18 Discharge Date: 01/17/18 Discharging Provider: Jania George DO Primary Care Provider: Chele Easley MD Code Status: Attempt Resuscitation Condition at Discharge: Stable Discharge Disposition: 01 Home, Self Care - DIAGNOSES Admission Diagnoses: 1. Bradycardia, symptomatic 2. Dizziness 3. Fall without syncope and no trauma several weeks ago 4. Pulmonary hypertension 5. Hypertension 6. Chronic obstructive pulmonary disease Discharge Diagnoses with Status of Each Condition: 1. Bradycardia, symptomatic -The patient's heart rate has come up into the high 50s low 60s and she is no longer symptomatic. Her blood pressure is stable and she was able to ambulate with physical therapy without any significant changes in her vital signs. We will discharge the patient home on her current medication regimen and she will follow-up with her certified respiratory therapist in 1 week. 2. Dizziness- resolved 3. Fall without syncope and no trauma several weeks ago- Possibly related to bradycardia- there is no way of knowing at this point. 4. Pulmonary hypertension - No evidence of pulmonary hypertension component in this hospitalization. 5. Hypertension - The patient's blood pressure has been well managed, continue present care. 6. Chronic obstructive pulmonary disease- No evidence of COPD exacerbation. Continue present home care. - HPI History of Present Illness: From Dr. Neal's H&P: This is an 87-year-old white female with a history of irritable bowel syndrome on methotrexate, hypertension on medications, paroxysmal atrial fibrillation on aspirin (she has had prior bleeding and history of falls, therefore no anticoagulation), and history of COPD. Patient was admitted here approximately 1 month ago for viral syndrome, COPD exacerbation and rapid atrial fibrillation. Her medications required adjustment for the atrial fibrillation. She was sent home on new oxygen ordered to be used with activity. The patient apparently fell at home without syncope, hitting her forehead several weeks ago. She presented to the emergency room and had full x-rays and evaluation. No abnormality was found, including stable vital signs. The patient felt fine after this, except for some ecchymoses on the face. Over the last 2 days, she describes having dizziness when she stands. There has been no syncope. She denies chest pain or shortness of breath. She presented to the emergency room because of severe dizziness and was found to have marked bradycardia with sinus rhythm with heart rates in the 30s and 40s and is being admitted for management of her heart rate, adjustment of medication. - HOSPITAL COURSE Hospital Course: The patient was admitted to an observation bed and her medications were changed by Dr. Neal. Her heart rate still slowly began to increase and she denied any further symptomatic episodes. She was evaluated by physical therapy with walking and showed no significant increase in her heart rate or decrease in her oxygen saturation, and she is therefore ready to be discharged home. - ALLERGIES Allergies/Adverse Reactions: Allergies Allergy/AdvReac Type Severity Reaction Status Date / Time No Known Drug Allergies Allergy Verified 12/09/17 10:15 - MEDICATIONS Home Medications: Ambulatory Orders Medication Instructions Recorded Confirmed Aspirin [Aspir 81] 81 mg PO DAILY 09/20/14 01/16/18 Methotrexate 5 mg PO FR 09/20/14 01/16/18 Simvastatin 40 mg PO QPM 09/20/14 01/16/18 Furosemide 40 mg PO DAILY 02/26/17 01/16/18 Levothyroxine Sodium [Synthroid] 50 mcg PO QDAC 02/26/17 01/16/18 Digoxin [Lanoxin] 125 mcg PO DAILY #20 tablet 03/03/17 01/16/18 Metoprolol Succinate [Toprol Xl] 100 mg PO BID #60 tab.er.24h 03/03/17 01/16/18 Acetaminophen [Tylenol] 650 mg PO Q6H PRN 01/16/18 01/16/18 Allopurinol 100 mg PO DAILY 01/16/18 01/16/18 Cetirizine [ZyrTEC] 10 mg PO DAILY PRN 01/16/18 01/16/18 Esomeprazole Magnesium [Nexium] 40 mg PO DAILY 01/16/18 01/16/18 Ferrous Gluconate 324 mg PO DAILY 01/16/18 01/16/18 Furosemide 40 - 80 mg PO DAILY PRN 01/16/18 01/16/18 Krill/[place]-3/Dha/Epa/Lipids 350 mg PO DAILY 01/16/18 01/16/18 [Krill Oil 350 mg Softgel] Lisinopril 2.5 mg PO DAILY 01/16/18 01/16/18 Milk Thistle Seed Extract [Milk 350 mg PO DAILY 01/16/18 01/16/18 Thistle] Multivitamin [Theragran] 1 each PO DAILY 01/16/18 01/16/18 Colchicine [Colcrys] 0.6 mg PO DAILY PRN tablet 01/17/18 Famotidine [Pepcid] 20 mg PO DAILY tablet 01/17/18 - PHYSICAL EXAM AT DISCHARGE General Appearance: positive: No acute distress, Alert Eyes Bilateral: positive: Normal inspection, PERRL, EOMI, No lid inflammation, Conjunctivae nml, No scleral icterus ENT: positive: ENT inspection nml, Pharynx nml, No signs of dehydration Neck: positive: Nml inspection, Thyroid nml, No JVD, Trachea midline. negative : Thyromegaly Respiratory: positive: Chest non-tender, No respiratory distress, Breath sounds nml. negative: Wheezes, Rales, Rhonchi Cardiovascular: positive: Regular rate & rhythm, No murmur, No gallop Peripheral Pulses: positive: 1+ Abdomen: positive: Non-tender, No organomegaly, Nml bowel sounds, No distention. negative: Guarding, Rebound Back: positive: Nml inspection. negative: CVA tenderness (R), CVA tenderness (L ) Skin: positive: Color nml, No rash, Warm, Dry. negative: Cyanosis Extremities: positive: Non-tender, Full ROM, Nml appearance, No pedal edema Neurologic/Psychiatric: positive: Oriented x3, CN's nml (2-12), Motor nml, Sensation nml, Mood/affect nml - LABS Result Diagrams: 01/17/18 11:08 01/17/18 11:08 - DIAGNOSTIC IMAGING Diagnostic Imaging Results Comments: EXAM: CT HEAD EXAM DATE: 01/16/2018 10:05 AM. CLINICAL HISTORY: [place] weak fall. Dizziness since fall a month ago. Bradycardia. COMPARISON: Head CT 12/09/2017. TECHNIQUE: Multiaxial CT images were obtained from the foramen magnum to the vertex. Reformats: Coronal. IV contrast: None. In accordance with CT protocol optimization, one or more of the following dose reduction techniques were utilized for this exam: automated exposure control, adjustment of mA and/or KV based on patient size, or use of iterative reconstructive technique. FINDINGS: Parenchyma: No intraparenchymal hemorrhage. No evidence of mass, midline shift, or CT findings of acute infarction. Parsons-white differentiation is distinct. Diffuse chronic microangiopathic white matter changes are evident. Extraaxial Spaces: Normal for age. No subdural or epidural collections identified. Ventricles: The ventricles and cortical sulci are enlarged, consistent with age-related tissue loss. Sinuses and orbits: Imaged paranasal sinuses, orbits, and mastoids show no significant abnormality. Bones: Old right-sided shelli holes. No recent fracture evident. Other: Atherosclerotic arterial calcifications. IMPRESSION: Generalized age-related cortical atrophic changes without evidence of acute intracranial abnormality. EXAM: CT CERVICAL SPINE WITHOUT CONTRAST DATE: 01/16/2018 10:05 AM. HISTORY: Fall a month ago. Neck pain. COMPARISONS: None. TECHNIQUE: Thin-section axial images were acquired of the cervical spine without contrast. Post-processing: Coronal and sagittal reformats. Other: None. In accordance with CT protocol optimization, one or more of the following dose reduction techniques were utilized for this exam: automated exposure control, adjustment of mA and/or KV based on patient size, or use of iterative reconstructive technique. FINDINGS: Alignment: Mild convex left cervical scoliosis. 2 mm grade 1 retrolisthesis of C5 on C6 vertebral body. Minimal grade 1 anterolisthesis of C2 on C3 vertebral body. Straightening of normal cervical lordosis with minimal generalized kyphosis from C3 to C6 level. Bones: No fracture or bone lesion. Interspace Levels/Facets: C1-C2: Degenerative changes in the pre-dens interval with marginal osteophytes. Sclerosis along the superior aspect of dens. Subchondral cysts also noted. Degenerative changes along the C1-C2 lateral masses, greater on the left with subchondral cyst formation and marginal spurring. C2-C3: Left facet hypertrophy. C3-C4: Moderate to severe right neural foraminal narrowing from uncovertebral joint and facet hypertrophy. Moderate left foraminal narrowing from similar changes. Loss of disk space height. C4-C5: Moderate right and mild to moderate left neural foraminal narrowing from uncovertebral joint hypertrophy. Right facet is partially ankylosed. C5-C6: Effacement of ventral thecal sac due to broad posterior disk osteophyte complex. Moderate bilateral neural foramina narrowing from uncovertebral joint hypertrophy, more pronounced on the right. C6-C7: Prominent left anterolateral bridging osteophyte. C7-T1: Loss of disk space height. Musculature: Normal. No fatty atrophy. Other: The paravertebral and prevertebral soft tissues are unremarkable. There is centrilobular emphysematous changes in the lung apices. IMPRESSION: 1. No cervical spine fracture. 2. Moderate to severe multilevel degenerative changes. 3. Emphysema noted within the lung apices. EXAM: CHEST RADIOGRAPHY EXAM DATE: 01/16/2018 10:06 AM. CLINICAL HISTORY: Weakness. COMPARISON: Chest x-ray 07/26/2017. TECHNIQUE: 2 views. FINDINGS: Lungs/Pleura: No focal opacities evident. No pleural effusion. No pneumothorax. Prominent lung volumes. Mediastinum: Atherosclerotic aortic calcifications. Other: Diffuse osteopenia. Multilevel thoracic spine degenerative changes. IMPRESSION: 1. No consolidation evident. 2. Prominent lung volumes, question COPD. - FOLLOW UP Follow Up: With Dr. Easley in 1 week - TIME SPENT Time Spent in Discharge (Minutes): 40
[2018-01-17 18:43] VITALS: BP 140/73
[2018-01-20] MEDS ORDERED: METHOTREXATE 2.5 MG TABLET PO SCH (09:00)
== END 2018-01-17 19:55 | disposition home or self-care (01) ==
LOC: ED 08:55 → OBS 12:23
PROVIDERS: ADMIT Internal Medicine; ATTEND Hospitalist
DX: R00.1 Bradycardia, unspecified (principal); R42 Dizziness and giddiness; I27.20 Pulmonary hypertension, unspecified; I11.0 Hypertensive heart disease with heart failure; I50.9 Heart failure, unspecified; J43.9 Emphysema, unspecified; N28.9 Disorder of kidney and ureter, unspecified; M54.2 Cervicalgia; R53.1 Weakness; I48.0 Paroxysmal atrial fibrillation; I38 Endocarditis, valve unspecified; E03.9 Hypothyroidism, unspecified; K21.9 Gastro-esophageal reflux disease without esophagitis; E78.00 Pure hypercholesterolemia, unspecified; K58.9 Irritable bowel syndrome, unspecified; Z79.899 Other long term (current) drug therapy; Z79.82 Long term (current) use of aspirin; Z91.81 History of falling; Z87.820 Personal history of traumatic brain injury; Z99.81 Dependence on supplemental oxygen
CPT/HCPCS: 36415; 70450; 71046; 72125; 80048; 80162; 84484; 85025; 85027; 93005; 96360; 96361; 97116; 97161; 99284; 99285; A9270; G0378; G8978; G8979; G8980

== ENCOUNTER 2018-03-07 08:40 | Outpatient (CLI) | payer MEDICARE, BC ==
--- NOTE | 2018-03-07 09:17 | XRAY Report ---
Procedure Date: 03/07/2018 Accession Number: [id number] / [id number] Procedure: XR - Shoulder 3 View RT CPT Code: FULL RESULT: EXAM: RIGHT SHOULDER RADIOGRAPHY EXAM DATE: 03/07/2018 08:58 AM. CLINICAL HISTORY: DIVERTICULOSIS DIARRHEA, DOD CRAMPING/SHOULDER PAIN FOR 1 YEAR. UNABLE TO LIFT ARM. COMPARISON: None. TECHNIQUE: 3 views. FINDINGS: Bones: Normal. No fracture or bone lesion. Joints: Narrowing of acromiohumeral interval, raising concern for chronic rotatory cuff tear. Spurring along the inferomedial humeral head. Narrowing of acromioclavicular joint space with inferior marginal osteophytes. Soft tissues: Calcification along superior aspect of greater tuberosity concerning for tendinosis. IMPRESSION: 1. Moderate right shoulder degenerative changes. 2. Probable chronic rotator cuff tear. RADIA
--- NOTE | 2018-03-07 09:30 | CT Report ---
Procedure Date: 03/07/2018 Accession Number: [id number] / [id number] Procedure: CT - Abdomen/Pelvis W/O CPT Code: FULL RESULT: EXAM: CT ABDOMEN AND PELVIS (CT KUB) EXAM DATE: 03/07/2018 08:59 AM. CLINICAL HISTORY: Diverticulosis, diarrhea, cramping, shoulder pain. COMPARISONS: 03/03/2017. TECHNIQUE: Routine axial helical CT imaging was performed through the abdomen and pelvis without IV contrast. Reconstructions: Coronal and sagittal. In accordance with CT protocol optimization, one or more of the following dose reduction techniques were utilized for this exam: automated exposure control, adjustment of mA and/or KV based on patient size, or use of iterative reconstructive technique. FINDINGS: Lung Bases: Cardiomegaly. At least moderate coronary arterial calcifications. Mild interstitial thickening, probably related to congestive heart failure. Right Kidney/Ureter: 1.8 cm right upper renal cyst with water attenuation. Left Kidney/Ureter: Lobulated left renal contour could be related to scarring. No stone or hydronephrosis. Other Solid Organs: Noncontrast images of the solid organs are grossly unremarkable. Gallbladder/Bile Ducts: Distended gallbladder with tiny dependent calcification within lumen versus within wall. No pericholecystic edema. Main common bile duct now measures 11 mm diameter, previously 6 mm on 03/03/2017. Peritoneal Cavity: No free fluid, free air or ladi adenopathy. Bowel is grossly unremarkable. Pelvic Organs: No bladder stones or wall thickening. Noncontrast images of the visualized pelvic organs are unremarkable. Vasculature: Extensive atherosclerotic arterial calcifications. Mild ectasia of distal abdominal aorta increasing to 2.4 cm diameter prior to bifurcation, relative to 1.9 cm AP dimension in proximal abdominal aorta. Other: Prior bilateral total hip arthroplasty. Lumbar spine degenerative changes. IMPRESSION: 1. No urinary tract stones or obstruction. 2. Distended gallbladder with tiny dependent stone versus focal wall calcification. In addition, there has been development of 11 mm common bile duct dilatation since 03/03/2017 when CBD had 6 mm diameter. Question if related to choledocholithiasis. 3. Diverticulosis. No pericolonic inflammation evident. 4. Mild congestive heart failure. RADIA
== END 2018-03-07 08:41 | disposition home or self-care (01) ==
LOC: DI 08:40
PROVIDERS: ATTEND Nurse Practitioner Family
DX: M19.011 Primary osteoarthritis, right shoulder (principal); K57.30 Diverticulosis of large intestine without perforation or abscess without bleeding; R19.7 Diarrhea, unspecified; K82.8 Other specified diseases of gallbladder; I50.9 Heart failure, unspecified
CPT/HCPCS: 74176

== ENCOUNTER 2018-05-05 07:51 | Outpatient (CLI) | payer MEDICARE, BC ==
[2018-05-05 08:26] LABS: CREATININE 1.1 mg/dL (0.4-1.0)
--- NOTE | 2018-05-05 15:13 | MRI Report ---
Reason: INCREASED SIZE COMMON BITE DUCT Procedure Date: 05/05/2018 Accession Number: [id number] / [id number] Procedure: MRI - MRCP W/O CPT Code: FULL RESULT: EXAM: MR ABDOMEN WITHOUT CONTRAST (MR CHOLANGIOPANCREATOGRAPHY) EXAM DATE: 05/05/2018 08:53 AM. CLINICAL HISTORY: INCREASED SIZE COMMON BILE DUCT. COMPARISON: Abdominal CT 03/07/2018 and ultrasound 09/20/2007. TECHNIQUE: Multiplanar breath-hold T1 and T2 sequences obtained through the abdomen on an MR scanner. Dedicated 2D and 3D MRCP sequences obtained through the biliary and pancreatic ducts. No intravenous contrast given. Moderate patient motion artifact. FINDINGS: Lung Bases: The lung bases are clear. Liver: The liver has normal size, morphology and signal. No evidence of mass. The intrahepatic bile ducts appear normal. CBD: The CBD is 8 mm in diameter on present MRCP, previously [address] 03/07/2018 and 6 mm on remote abdominal ultrasound 09/20/2007.. Gallbladder: Phrygian cap noted. Gallbladder wall appears edematous adjacency of right liver lobe measuring 4-5 mm in depth. Pancreas: The pancreas appears normal with no mass. The pancreatic duct measures 1-2 mm in diameter and appears normal with no stone or stricture. Spleen: The spleen appears normal. Kidneys and Adrenals: 1.7 cm right upper renal cyst. No hydronephrosis involving either kidney.. The adrenals appear normal. Bowel: The small bowel and colon appear normal with no inflammation or obstruction. Retroperitoneum: The retroperitoneal structures appear normal with no mass or lymphadenopathy. IMPRESSION: 1. No choledocholithiasis demonstrated today. 8 mm CBD diameter is at upper limits of normal and has decreased compared to [address] 03/07/2018. Question if patient had choledocholithiasis on prior CT that has resolved. 2. Distended gallbladder. Nonspecific, mildly edematous gallbladder wall. Tiny dependent gallstone versus focal gallbladder wall calcification on prior CT. Potential cholecystitis. Recommend clinical correlation and consider ultrasound and/or HIDA scan if warranted. RADIA
== END 2018-05-05 07:52 | disposition home or self-care (01) ==
LOC: DI 07:51
PROVIDERS: ATTEND Internal Medicine
DX: K82.8 Other specified diseases of gallbladder (principal); K80.10 Calculus of gallbladder with chronic cholecystitis without obstruction; R10.9 Unspecified abdominal pain
CPT/HCPCS: 36415; 74181; 82565

== ENCOUNTER 2018-11-11 06:17 | Outpatient (CLI) | payer MEDICARE, BC | END 2018-11-11 06:18 | disposition critical access hospital (66) | LOC: EMS 06:17 | PROVIDERS: ATTEND Surgery | DX: M79.601 Pain in right arm (principal); R20.0 Anesthesia of skin; G83.20 Monoplegia of upper limb affecting unspecified side | CPT/HCPCS: A0425; A0429 ==

== ENCOUNTER 2018-11-11 06:43 | Emergency (ER) | payer MEDICARE, BC ==
[2018-11-11 07:07] LABS: BASOPHILS # (AUTO) 0.1 10^3/uL (0.0-0.1); BASOPHILS % (AUTO) 0.8 %; EOSINOPHILS # (AUTO) 0.3 10^3/uL (0.0-0.7); EOSINOPHILS % (AUTO) 2.6 %; LYMPHOCYTES # (AUTO) 0.9 10^3/uL (1.5-3.5); LYMPHOCYTES % (AUTO) 7.1 %; MEAN CORPUSCULAR HEMOGLOBIN 35.2 pg (27.0-31.0); MEAN CORPUSCULAR HGB CONC 32.4 g/dL (32.0-36.0); MEAN CORPUSCULAR VOLUME 108.8 fL (81.0-99.0); MEAN PLATELET VOLUME 9.1 fL (7.9-10.8); MONOCYTES # (AUTO) 0.7 10^3/uL (0.0-1.0); MONOCYTES % (AUTO) 5.8 %; NEUTROPHILS # (AUTO) 10.7 10^3/uL (1.5-6.6); NEUTROPHILS % (AUTO) 83.7 %; PLT - PLATELET COUNT 201 10^3/uL (130-450); RED BLOOD COUNT 4.25 10^6/uL (4.20-5.40); RED CELL DISTRIBUTION WIDTH 15.6 % (12.0-15.0); WHITE BLOOD COUNT 12.8 x10^3/uL (4.8-10.8)
[2018-11-11 07:11] LABS: INR 1.2 (0.8-1.2); PT - PROTHROMBIN TIME 13.3 secs (9.9-12.6)
[2018-11-11 07:15] LABS: ALBUMIN 4.1 g/dL (3.2-5.5); ALBUMIN/GLOBULIN RATIO 1.2 (1.0-2.2); BILIRUBIN,TOTAL 1.1 mg/dL (0.2-1.0); CALCIUM 9.2 mg/dL (8.5-10.3); CREATININE 1.4 mg/dL (0.4-1.0); TOTAL PROTEIN 7.5 g/dL (6.7-8.2)
[2018-11-11] MEDS ORDERED: HYDROmorphone 1 MG/ML CARPUJECT IVP STA (07:15)
[2018-11-11] MEDS ORDERED: ONDANSETRON 4 MG/2 ML VIAL IVP STA (07:15)
--- NOTE | 2018-11-11 07:17 | ED Physician Documentation ---
History of Present Illness - Stated complaint Stated Complaint: ARM PX - Chief complaint Chief Complaint: Ext Problem - History obtained from History obtained from: Patient - History of Present Illness Timing: Today - Additonal information Additional information: 87-year-old female awoke this morning with severe pain in her right arm and hand. She notes the pain from just above the elbow to the hand has extreme pain she is having some trouble moving her hand and she has some numbness to the hand. She has never had these symptoms previously the pain is extreme. She does have a history of atrial fibrillation she is not on any form of anticoagulation.She denies illness prior to this with the exception of feeling sick to her stomach last week. When she got out of bed she had severe pain she went to sit on a stool and fell to the ground and she had a hard time crawling to get to the phone she scuffed up her feet doing this. Review of Systems Constitutional: denies: Fever, Chills Eyes: denies: Decreased vision Ears: denies: Ear pain Nose: denies: Rhinorrhea / runny nose, Congestion Throat: denies: Sore throat Cardiac: denies: Chest pain / pressure, Palpitations, Pedal edema, Calf pain Respiratory: denies: Dyspnea, Cough GI: reports: Nausea. denies: Abdominal Pain : denies: Dysuria, Frequency Skin: denies: Rash Musculoskeletal: reports: Extremity pain. denies: Neck pain, Back pain Neurologic: reports: Focal weakness, Numbness. denies: Generalized weakness, Difficulty speaking, Headache, Head injury, LOC PD PAST MEDICAL HISTORY - Past Medical History Past Medical History: Yes Cardiovascular: Congestive heart failure, Hypertension, High cholesterol, Atrial flutter, Atrial fibrillation, Valve disorder Respiratory: Shortness of breath, Other Neuro: CVA Endocrine/Autoimmune: HyPOthyroidism GI: GERD HOSPICE SPIRITUAL CARE COORDINATOR: Other : None HEENT: Chronic sinusitis Psych: None Musculoskeletal: Osteoarthritis Derm: None - Past Surgical History Past Surgical History: Yes Ortho: Hip replacement, Carpal Tunnel surgery Neuro: Other - Present Medications Home Medications: Ambulatory Orders Medication Instructions Recorded Confirmed RX: Aspirin [Aspir 81] 81 mg PO DAILY 09/20/14 01/16/18 RX: Methotrexate 5 mg PO FR 09/20/14 01/16/18 RX: Simvastatin 40 mg PO QPM 09/20/14 01/16/18 RX: Furosemide 40 mg PO DAILY 02/26/17 01/16/18 RX: Levothyroxine Sodium 50 mcg PO QDAC 02/26/17 01/16/18 [Synthroid] RX: Digoxin [Lanoxin] 125 mcg PO DAILY #20 tablet 03/03/17 01/16/18 RX: Metoprolol Succinate [Toprol 100 mg PO BID #60 tab.er.24h 03/03/17 01/16/18 Xl] RX: Acetaminophen [Tylenol] 650 mg PO Q6H PRN 01/16/18 01/16/18 RX: Allopurinol 100 mg PO DAILY 01/16/18 01/16/18 RX: Cetirizine [ZyrTEC] 10 mg PO DAILY PRN 01/16/18 01/16/18 RX: Esomeprazole Magnesium [Nexium] 40 mg PO DAILY 01/16/18 01/16/18 RX: Ferrous Gluconate 324 mg PO DAILY 01/16/18 01/16/18 RX: Furosemide 40 - 80 mg PO DAILY PRN 01/16/18 01/16/18 RX: Krill/[place]-3/Dha/Epa/Lipids 350 mg PO DAILY 01/16/18 01/16/18 [Krill Oil 350 mg Softgel] RX: Lisinopril 2.5 mg PO DAILY 01/16/18 01/16/18 RX: Milk Thistle Seed Extract 350 mg PO DAILY 01/16/18 01/16/18 [Milk Thistle] RX: Multivitamin [Theragran] 1 each PO DAILY 01/16/18 01/16/18 RX: Colchicine [Colcrys] 0.6 mg PO DAILY PRN tablet 01/17/18 RX: Famotidine [Pepcid] 20 mg PO DAILY tablet 01/17/18 - Allergies Allergies/Adverse Reactions: Allergies Allergy/AdvReac Type Severity Reaction Status Date / Time No Known Drug Allergies Allergy Verified 11/11/18 07:05 - Social History Does the pt smoke?: No Smoking Status: Never smoker Does the pt drink ETOH?: Yes Does the pt have substance abuse?: No - Immunizations Immunizations are current?: Yes - POLST Patient has POLST: No POLST Status: DNR PD ED PE NORMAL - Vitals Vital signs reviewed: Yes (normal ) - General General: Well developed/nourished, Other (87 y/o female appears distracted by severe pain and is clutching a cool pale right forearm and hand. ) - HEENT HEENT: Atraumatic, PERRL, EOMI - Neck Neck: Supple, no meningeal sign - Cardiac Cardiac: No murmur, Other (irrregularly irrregular ) - Respiratory Respiratory: No respiratory distress, Clear bilaterally - Abdomen Abdomen: Soft, Non tender - Derm Derm: Normal color, Warm and dry, No rash - Extremities Extremities: Other (The right forearm and hand are cool to the touch pale and the site of extreme pain. There is no evidence of injury to the area. The capillary refill is poor. The feet both have superficial abrasions to the toes and dorsum of the foot. 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, No motor deficit, No sensory deficit, Normal speech Eye Opening: Spontaneous Motor: Obeys Commands Verbal: Confused GCS Score: 14 - Psych Psych: Other (mood is painful and the affect is flat) Results - Vitals Vitals: Vital Signs - 24 hr 11/11/18 11/11/18 11/11/18 06:45 07:35 08:04 Temperature 36.1 C L Heart Rate 57 L 52 L 51 L Respiratory 19 18 12 Rate Blood Pressure 110/59 L 110/59 L 108/54 L O2 Saturation 97 98 97 Oxygen O2 Source [With Activity] Room air O2 Source [Without Activity] Room air O2 Source Room air - Labs Labs: Laboratory Tests 11/11/18 11/11/18 11/11/18 06:55 06:55 06:55 WBC 12.8 H RBC 4.25 Hgb 15.0 Hct 46.3 MCV 108.8 H MCH 35.2 H MCHC 32.4 RDW 15.6 H Plt Count 201 MPV 9.1 Neut # (Auto) 10.7 H Lymph # (Auto) 0.9 L [place] # (Auto) 0.7 Eos # (Auto) 0.3 Baso # (Auto) 0.1 Absolute Nucleated RBC 0.01 Nucleated RBC % 0.0 PT 13.3 H INR 1.2 APTT 26.5 Sodium 139 Potassium 3.8 Chloride 104 Carbon Dioxide 21 Anion Gap 14.0 H BUN 33 H Creatinine 1.4 H Estimated GFR (MDRD) 36 L Glucose 157 H Calcium 9.2 Total Bilirubin 1.1 H AST 38 ALT 18 Alkaline Phosphatase 67 Total Protein 7.5 Albumin 4.1 Globulin 3.4 Albumin/Globulin Ratio 1.2 Lipase 38 - Rads (name of study) UE ultrasound Radiology: Prelim report reviewed (Impression: 1. Per technologist notes, technically challenging and limited exam. 2 Minimal flow seen in the region of the radial and ulnar arteries some subjectively diminished flow in the right axillary and brachial artery, unclear whether this is due, at least in part, to the technical limitations of study; however, is concerning for vascular com promise at the level of the right axillary artery. 3 Superficial thrombophlebitis of the cephalic vein incidentally noted.), EMP read indepedently, See rad report PD MEDICAL DECISION MAKING - ED course Complexity details: reviewed old records, reviewed results, re-evaluated patient, considered differential, d/w patient ED course: 87 y/o female with acute right arm pain this morning appears to have an acute arterial occlusion and a heparin bolus and drip are started and she is administered IV dilaudid for pain control which is ineffective. Emergent transfer to [facility] in [place] is activated via air. Dr. Bowman the ED attending at [facility] is accepting and the [facility] vascular surgery will be awaiting the patient in the pre-op area. Departure - Departure Disposition: 02 Transfer Acute Care Hosp Clinical Impression: Acute occlusion of artery of upper extremity Condition: Serious Discharge Date/Time: 11/11/18 08:18
[2018-11-11 07:18] LABS: PARTIAL THROMBOPLASTIN TIME 26.5 secs (24.9-33.3)
[2018-11-11] MEDS ORDERED: HEPARIN 25000UNITS/500ML (D5W) 25,000 UNIT/500 ML BAG IV SCH (08:00)
[2018-11-11 08:18] VITALS: BP 108/54
--- NOTE | 2018-11-11 08:55 | Ultrasound Report ---
Reason: R arm pale, painful Procedure Date: 11/11/2018 Accession Number: [id number] / [id number] Procedure: US - Duplex Upr Ext Arterial RT CPT Code: FULL RESULT: EXAM: RIGHT UPPER EXTREMITY ARTERIAL DOPPLER ULTRASOUND EXAM DATE: 11/11/2018 07:33 AM. CLINICAL HISTORY: Right arm pale, painful. COMPARISON: None. TECHNIQUE: Real-time sonographic vascular imaging was performed by the outside plant technician, utilizing color-flow, Doppler flow, and spectral analysis. Multiple sales promotion representative static images were saved for review. FINDINGS: Per technologist notes, technically challenging and limited exam due to patient clinical condition, agitation, and ongoing clinical care. Right Upper Extremity Velocities: Innominate 81 cm/s. Subclavian prox: 49 cm/s. Subclavian mid: 48 cm/s. Subclavian distal: 43 cm/s. Axillary: 16 cm/s. Brachial prox: 25 cm/s. Brachial dist: 14 cm/s. Radial prox: Minimal. Radial distal: Minimal. Ulnar prox: Minimal. Ulnar dist: Minimal. Minimal flow is seen in the region of the radial and ulnar arteries and subjectively diminished flow in the right axillary and brachial artery, unclear whether this is due, at least in part, to the technical limitations of the study; however, is concerning for vascular compromise. Incidentally noted is superficial thrombophlebitis of the cephalic vein. IMPRESSION: 1. Per technologist notes, technically challenging and limited exam. 2. Minimal flow is seen in the region of the radial and ulnar arteries and subjectively diminished flow in the right axillary and brachial artery, unclear whether this is due, at least in part, to the technical limitations of the study; however, is concerning for vascular compromise at the level of the right axillary artery. 3. Superficial thrombophlebitis of the cephalic vein incidentally noted. RADIA The call report notification system was initiated by Dr. Adiel Stover at 08:52 AM on 11/11/2018. The above call report findings were discussed with Dr. Wise by Dr. Adiel Stover at 09:03 AM on 11/11/2018.
== END 2018-11-11 08:18 | disposition short-term general hospital (02) ==
LOC: EDUNIT# → ED 06:43
DX: I70.90 Unspecified atherosclerosis (principal); S90.812A Abrasion, left foot, initial encounter; S90.811A Abrasion, right foot, initial encounter; S90.415A Abrasion, left lesser toe(s), initial encounter; S90.414A Abrasion, right lesser toe(s), initial encounter; W19.XXXA Unspecified fall, initial encounter; Y93.89 Activity, other specified; I10 Essential (primary) hypertension
CPT/HCPCS: 36415; 80053; 83690; 85025; 85610; 85730; 93931; 96365; 96375; 96376; 99284; J1170; 99285

== ENCOUNTER 2018-11-24 09:38 | Outpatient (CLI) | payer MEDICARE, BC | END 2018-11-24 09:39 | disposition home or self-care (01) | LOC: LAB 09:38 | PROVIDERS: ATTEND Internal Medicine | DX: Z79.01 Long term (current) use of anticoagulants (principal) | CPT/HCPCS: 36415; 85610 ==

== ENCOUNTER 2018-12-13 11:21 | Outpatient (CLI) | payer MEDICARE, BC ==
[2018-12-13 18:20] LABS: CALCIUM 9.1 mg/dL (8.5-10.3); CREATININE 1.1 mg/dL (0.4-1.0)
== END 2018-12-13 11:22 | disposition home or self-care (01) ==
LOC: LAB.F 11:21
PROVIDERS: ATTEND Internal Medicine Cardiovascular Disease
DX: I50.9 Heart failure, unspecified (principal); Z79.01 Long term (current) use of anticoagulants
CPT/HCPCS: 36415; 80048; 85610

== ENCOUNTER 2018-12-20 10:32 | Outpatient (CLI) | payer MEDICARE, BC | END 2018-12-20 10:33 | disposition home or self-care (01) | LOC: LAB.F 10:32 | PROVIDERS: ATTEND Internal Medicine | DX: Z79.01 Long term (current) use of anticoagulants (principal) | CPT/HCPCS: 85610 ==

== ENCOUNTER 2018-12-27 09:02 | Outpatient (CLI) | payer MEDICARE, BC | END 2018-12-27 09:03 | disposition home or self-care (01) | LOC: LAB.F 09:02 | PROVIDERS: ATTEND Internal Medicine | DX: Z51.81 Encounter for therapeutic drug level monitoring (principal); Z79.01 Long term (current) use of anticoagulants | CPT/HCPCS: 85610 ==

== ENCOUNTER 2019-01-10 14:13 | Outpatient (CLI) | payer MEDICARE, BC | END 2019-01-10 14:14 | disposition home or self-care (01) | LOC: LAB.F 14:13 | PROVIDERS: ATTEND Internal Medicine | DX: Z79.01 Long term (current) use of anticoagulants (principal) | CPT/HCPCS: 36415; 85610 ==

== ENCOUNTER 2019-01-23 11:21 | Outpatient (CLI) | payer MEDICARE, BC | END 2019-01-23 11:22 | disposition home or self-care (01) | LOC: LAB 11:21 | PROVIDERS: ATTEND Internal Medicine | DX: Z79.01 Long term (current) use of anticoagulants (principal) | CPT/HCPCS: 85610 ==

== ENCOUNTER 2019-01-31 09:40 | Outpatient (CLI) | payer MEDICARE, BC | END 2019-01-31 09:41 | disposition home or self-care (01) | LOC: LAB 09:40 | PROVIDERS: ATTEND Internal Medicine | DX: Z79.01 Long term (current) use of anticoagulants (principal) | CPT/HCPCS: 85610 ==

== ENCOUNTER 2019-02-14 08:52 | Outpatient (CLI) | payer MEDICARE, BC | END 2019-02-14 08:53 | disposition home or self-care (01) | LOC: LAB 08:52 | PROVIDERS: ATTEND Internal Medicine | DX: Z79.01 Long term (current) use of anticoagulants (principal) | CPT/HCPCS: 85610 ==

== ENCOUNTER 2019-02-20 11:41 | Outpatient (CLI) | payer MEDICARE, BC | END 2019-02-20 11:42 | disposition home or self-care (01) | LOC: LAB 11:41 | PROVIDERS: ATTEND Internal Medicine | DX: Z79.01 Long term (current) use of anticoagulants (principal) | CPT/HCPCS: 85610 ==

== ENCOUNTER 2019-03-01 09:43 | Outpatient (CLI) | payer MEDICARE, BC | END 2019-03-01 09:44 | disposition home or self-care (01) | LOC: LAB 09:43 | PROVIDERS: ATTEND Internal Medicine | DX: Z79.01 Long term (current) use of anticoagulants (principal) | CPT/HCPCS: 85610 ==

== ENCOUNTER 2019-03-09 09:23 | Outpatient (CLI) | payer MEDICARE, BC ==
[2019-03-09 09:56] LABS: BASOPHILS # (AUTO) 0.1 10^3/uL (0.0-0.1); BASOPHILS % (AUTO) 0.7 %; EOSINOPHILS # (AUTO) 0.4 10^3/uL (0.0-0.7); EOSINOPHILS % (AUTO) 5.3 %; LYMPHOCYTES # (AUTO) 1.1 10^3/uL (1.5-3.5); LYMPHOCYTES % (AUTO) 15.6 %; MEAN CORPUSCULAR HEMOGLOBIN 33.4 pg (27.0-31.0); MEAN CORPUSCULAR HGB CONC 32.2 g/dL (32.0-36.0); MEAN CORPUSCULAR VOLUME 103.8 fL (81.0-99.0); MEAN PLATELET VOLUME 10.6 fL (7.9-10.8); MONOCYTES # (AUTO) 0.6 10^3/uL (0.0-1.0); MONOCYTES % (AUTO) 9.5 %; NEUTROPHILS # (AUTO) 4.6 10^3/uL (1.5-6.6); NEUTROPHILS % (AUTO) 68.5 %; PLT - PLATELET COUNT 244 10^3/uL (130-450); RED BLOOD COUNT 4.49 10^6/uL (4.20-5.40); RED CELL DISTRIBUTION WIDTH 18.6 % (12.0-15.0); WHITE BLOOD COUNT 6.8 x10^3/uL (4.8-10.8)
[2019-03-09 10:00] LABS: INR 2.8 (0.8-1.2); PT - PROTHROMBIN TIME 30.6 secs (9.9-12.6)
[2019-03-09 15:02] LABS: CALCIUM 9.3 mg/dL (8.5-10.3); CREATININE 1.3 mg/dL (0.4-1.0)
== END 2019-03-09 09:24 | disposition home or self-care (01) ==
LOC: LAB 09:23
PROVIDERS: ATTEND Internal Medicine
DX: I48.2 Chronic atrial fibrillation (principal); I74.9 Embolism and thrombosis of unspecified artery
CPT/HCPCS: 36415; 80048; 85025; 85610

== ENCOUNTER 2019-03-23 10:01 | Outpatient (CLI) | payer MEDICARE, BC | END 2019-03-23 10:02 | disposition home or self-care (01) | LOC: LAB 10:01 | PROVIDERS: ATTEND Internal Medicine | DX: I48.91 Unspecified atrial fibrillation (principal) | CPT/HCPCS: 85610 ==

== ENCOUNTER 2019-04-10 09:25 | Outpatient (CLI) | payer MEDICARE, BC | END 2019-04-10 09:26 | disposition home or self-care (01) | LOC: LAB 09:25 | PROVIDERS: ATTEND Internal Medicine | DX: I48.91 Unspecified atrial fibrillation (principal) | CPT/HCPCS: 85610 ==

== ENCOUNTER 2019-04-14 13:12 | Observation (INO) | payer MEDICARE, BC ==
[2019-04-14] MEDS ORDERED: SODIUM CHLORIDE 0.9% 1,000 ML IV ONE (13:52)
[2019-04-14 13:53] LABS: BASOPHILS % (AUTO) 0.5 %; EOSINOPHILS # (AUTO) 0.2 10^3/uL (0.0-0.7); EOSINOPHILS % (AUTO) 2.6 %; HGB - HEMOGLOBIN 13.6 g/dL (12.0-16.0); LYMPHOCYTES # (AUTO) 0.9 10^3/uL (1.5-3.5); MEAN CORPUSCULAR HEMOGLOBIN 34.9 pg (27.0-31.0); MEAN CORPUSCULAR HGB CONC 32.7 g/dL (32.0-36.0); MEAN CORPUSCULAR VOLUME 106.7 fL (81.0-99.0); MEAN PLATELET VOLUME 10.2 fL (7.9-10.8); MONOCYTES # (AUTO) 0.7 10^3/uL (0.0-1.0); MONOCYTES % (AUTO) 10.1 %; NEUTROPHILS # (AUTO) 4.7 10^3/uL (1.5-6.6); NEUTROPHILS % (AUTO) 71.4 %; PLT - PLATELET COUNT 260 10^3/uL (130-450); RED CELL DISTRIBUTION WIDTH 18.2 % (12.0-15.0); WHITE BLOOD COUNT 6.6 x10^3/uL (4.8-10.8)
--- NOTE | 2019-04-14 13:58 | ED Physician Documentation ---
PD HPI DYSPNEA - Stated complaint Stated Complaint: SOA - Chief complaint Chief Complaint: Resp - History obtained from History obtained from: Patient - History of Present Illness Timing - onset: How many days ago (3) Timing - onset during: Light activity Timing - duration: Days (3) Timing - details: Gradual onset, Still present Inciting event(s): Other (recent procedure) Improved by: Rest Worsened by: Exertion Associated symptoms: No: Fever, Cough, Hemoptysis, Wheezing, Chest pain / discomfort, Palpitations, Diaphoresis, Bilateral edema, Unilateral edema Similar symptoms before: Diagnosis (CHF) Recently seen: Clinic, Surgery - Additional information Additional information: 88 y/o female with a history of Peripheral vascular disease atrial fibrillation congestive heart failure pulmonary hypertension has had a recent procedure for placement of a filter and she had this done 8 days ago. She has had her follow- up with Dr. Barron 2 days ago and he recommended she go to the hospital that day because of her trouble with breathing. The patient has made her way to the hospital today with persistence of difficulty breathing getting her way across the room and this does not appear to have improved after giving her some medicine to slow her heart rate. She is on some Lasix. Review of Systems Constitutional: reports: Fatigue. denies: Fever, Chills, Myalgias Eyes: denies: Decreased vision Ears: denies: Ear pain Nose: denies: Rhinorrhea / runny nose, Congestion Throat: denies: Sore throat Cardiac: denies: Chest pain / pressure, Palpitations, Pedal edema, Calf pain Respiratory: reports: Dyspnea. denies: Cough, Wheezing GI: denies: Abdominal Pain, Nausea, Vomiting : denies: Dysuria, Frequency PD PAST MEDICAL HISTORY - Past Medical History Cardiovascular: Congestive heart failure, Hypertension, High cholesterol, Atrial flutter, Atrial fibrillation, Valve disorder Respiratory: Shortness of breath, Other Neuro: CVA Endocrine/Autoimmune: HyPOthyroidism GI: GERD MEDIA CENTER ASSISTANT: Other : None HEENT: Chronic sinusitis Psych: None Musculoskeletal: Osteoarthritis Derm: None - Past Surgical History Past Surgical History: Yes Ortho: Hip replacement, Carpal Tunnel surgery Neuro: Other - Present Medications Home Medications: Ambulatory Orders Medication Instructions Recorded Confirmed Methotrexate 5 mg PO FR 09/20/14 04/14/19 Simvastatin 40 mg PO QPM 09/20/14 04/14/19 Furosemide 40 mg PO DAILY 02/26/17 01/16/18 Levothyroxine Sodium [Synthroid] 50 mcg PO QDAC 02/26/17 04/14/19 Acetaminophen [Tylenol] 650 mg PO Q6H PRN 01/16/18 04/14/19 Allopurinol 100 mg PO DAILY 01/16/18 01/16/18 Cetirizine [ZyrTEC] 10 mg PO DAILY PRN 01/16/18 01/16/18 Esomeprazole Magnesium [Nexium] 40 mg PO DAILY 01/16/18 01/16/18 Furosemide 40 - 80 mg PO DAILY PRN 01/16/18 04/14/19 Krill/Dahlgren-3/Dha/Epa/Lipids 350 mg PO DAILY 01/16/18 04/14/19 [Krill Oil 350 mg Softgel] Multivitamin [Theragran] 1 each PO DAILY 01/16/18 04/14/19 Colchicine [Colcrys] 0.6 mg PO DAILY PRN tablet 01/17/18 Famotidine [Pepcid] 20 mg PO DAILY tablet 01/17/18 Metoprolol Succinate [Toprol Xl] 100 mg PO TID 04/14/19 Warfarin [Coumadin] 1 mg 04/14/19 - Allergies Allergies/Adverse Reactions: Allergies Allergy/AdvReac Type Severity Reaction Status Date / Time No Known Drug Allergies Allergy Verified 11/11/18 07:05 - Social History Does the pt smoke?: No Smoking Status: Never smoker Does the pt drink ETOH?: Yes Does the pt have substance abuse?: No - Immunizations Immunizations are current?: Yes - POLST Patient has POLST: No POLST Status: DNR PD ED PE NORMAL - Vitals Vital signs reviewed: Yes (tachy, tachypneic and hypotensive with hypoxia ) - General General: No acute distress, Well developed/nourished - HEENT HEENT: Atraumatic, PERRL, EOMI - Neck Neck: Supple, no meningeal sign, No bony TTP - Cardiac Cardiac: No murmur, Other (irregularly irregular at 70) - Respiratory Respiratory: No respiratory distress, Clear bilaterally - Abdomen Abdomen: Soft, Non tender - Back Back: No CVA TTP, No spinal TTP - Derm Derm: Normal color, Warm and dry, No rash, Other (The skin tents for >2sec) - Extremities Extremities: No deformity, No edema - Neuro Neuro: Alert and oriented X 3, exhibits coordinator 2-12 intact, No motor deficit, No sensory deficit, Normal speech Eye Opening: Spontaneous Motor: Obeys Commands Verbal: Oriented GCS Score: 15 - Psych Psych: Normal mood, Normal affect Results - Vitals Vitals: Vital Signs - 24 hr 04/14/19 04/14/19 04/14/19 13:16 13:49 14:08 Temperature 36.3 C L Heart Rate 110 H 54 L 45 L Respiratory 34 H 18 18 Rate Blood Pressure 98/58 L 107/91 H 106/89 H O2 Saturation 86 L 94 97 04/14/19 04/14/19 04/14/19 14:35 15:50 16:51 Temperature Heart Rate 73 91 51 L Respiratory 18 26 H 18 Rate Blood Pressure 127/83 H 114/75 138/85 H O2 Saturation 90 L 96 Oxygen O2 Source [] Room air O2 Source [] Room air O2 Source Nasal cannula Oxygen Flow Rate 2 - EKG (time done) 1354 Rate: Rate (enter#) Rhythm: Atrial flutter Intervals: LBBB Compare to prior EKG: Changed from prior EKG (SPT 01-16-18 rate has inceased and the rhythm has changed from sinus jann to aflutter.) Computer interpretation: Agree with computer - Labs Labs: Laboratory Tests 04/14/19 04/14/19 04/14/19 13:45 13:45 13:45 WBC 6.6 RBC 3.90 L Hgb 13.6 Hct 41.6 MCV 106.7 H MCH 34.9 H MCHC 32.7 RDW 18.2 H Plt Count 260 MPV 10.2 Neut # (Auto) 4.7 Lymph # (Auto) 0.9 L [place] # (Auto) 0.7 Eos # (Auto) 0.2 Baso # (Auto) 0.0 Absolute Nucleated RBC 0.08 Nucleated RBC % 1.2 PT INR Sodium 136 Potassium 4.4 Chloride 100 L Carbon Dioxide 24 Anion Gap 12.0 BUN 26 H Creatinine 1.4 H Estimated GFR (MDRD) 36 L Glucose 99 Calcium 9.3 Total Bilirubin 1.4 H AST 30 ALT 15 Alkaline Phosphatase 116 Troponin I High Sens B-Natriuretic Peptide Total Protein 7.9 Albumin 4.0 Globulin 3.9 Albumin/Globulin Ratio 1.0 Lipase 37 Urine Color Urine Clarity Urine pH Ur Specific [place] Urine Protein Urine Glucose (UA) Urine Ketones Urine Occult Blood Urine Nitrite Urine Bilirubin Urine Urobilinogen Ur Leukocyte Esterase Urine RBC Urine WBC Ur Squamous Epith Cells Urine Bacteria Ur Microscopic Review Urine Culture Comments Last Dose Date Unknown Last Dose Time Unknown Digoxin < 0.2 04/14/19 04/14/19 04/14/19 13:45 13:45 13:45 WBC RBC Hgb Hct MCV MCH MCHC RDW Plt Count MPV Neut # (Auto) Lymph # (Auto) [place] # (Auto) Eos # (Auto) Baso # (Auto) Absolute Nucleated RBC Nucleated RBC % PT 25.4 H INR 2.3 H Sodium Potassium Chloride Carbon Dioxide Anion Gap BUN Creatinine Estimated GFR (MDRD) Glucose Calcium Total Bilirubin AST ALT Alkaline Phosphatase Troponin I High Sens 13.3 B-Natriuretic Peptide 1352 H Total Protein Albumin Globulin Albumin/Globulin Ratio Lipase Urine Color Urine Clarity Urine pH Ur Specific [place] Urine Protein Urine Glucose (UA) Urine Ketones Urine Occult Blood Urine Nitrite Urine Bilirubin Urine Urobilinogen Ur Leukocyte Esterase Urine RBC Urine WBC Ur Squamous Epith Cells Urine Bacteria Ur Microscopic Review Urine Culture Comments Last Dose Date Last Dose Time Digoxin 04/14/19 14:25 WBC RBC Hgb Hct MCV MCH MCHC RDW Plt Count MPV Neut # (Auto) Lymph # (Auto) [place] # (Auto) Eos # (Auto) Baso # (Auto) Absolute Nucleated RBC Nucleated RBC % PT INR Sodium Potassium Chloride Carbon Dioxide Anion Gap BUN Creatinine Estimated GFR (MDRD) Glucose Calcium Total Bilirubin AST ALT Alkaline Phosphatase Troponin I High Sens B-Natriuretic Peptide Total Protein Albumin Globulin Albumin/Globulin Ratio Lipase Urine Color YELLOW Urine Clarity CLEAR Urine pH 5.5 Ur Specific [place] 1.010 Urine Protein NEGATIVE Urine Glucose (UA) NEGATIVE Urine Ketones NEGATIVE Urine Occult Blood SMALL H Urine Nitrite NEGATIVE Urine Bilirubin NEGATIVE Urine Urobilinogen 0.2 (NORMAL) Ur Leukocyte Esterase NEGATIVE Urine RBC 6-10 H Urine WBC 0-3 Ur Squamous Epith Cells FEW Squamous Urine Bacteria None Seen Ur Microscopic Review INDICATED Urine Culture Comments NOT INDICATED Last Dose Date Last Dose Time Digoxin - Rads (name of study) chest Radiology: Prelim report reviewed (Impression: 1. No consolidative pneumonia or pleural effusion. 2 Mildly increased reticular fine interstitial densities right midlung and left lung base, could represent minimal to mild edema or pneumonitis.), EMP read indepedently, See rad report Procedures - IVC sono (time) 1350 Bedside IVC sono: IVC measures (cm) (1.12), IVC collapsed c insp (cm) (1.12 the vessle is small but does not collapse consistent with pulmonary hypertension), Dehydration (est 1 liter deficit) 1619 Bedside IVC sono: IVC measures (cm) (1.7), Euvolemia PD MEDICAL DECISION MAKING - ED course Complexity details: reviewed old records, reviewed results, re-evaluated patient, considered differential, d/w patient ED course: 88 y/o female with exertional dyspnea appears dehydrated on interrogation of the IVC and with skin tenting and no edema. She has exertional tachycardia. She is administered IV saline at 500ml/hr and a urinalysis is obtained. The patient does not appear to be in failure and at rest she appears compensated. She has exceptional exertional dyspnea ambulating to the bathroom (about 6 feet). She desaturates and takes about 10 minutes to compenstate. She is administered one liter of fluid over 2 hours and her IVC increases from 1.12 to 1.7. Her BNP is elevated more than usual. She wants this to go away and she wants to go home. I am uncertain about the underlying nature of her exertional dyspnea and I consulted the contact lens assistant wastewater engineer Dr. Watt who recommended admission here to fine tune, check echo and provide oxygen as needed. I consulted our hospita list Dr. Neal who kindly came to the ED to review bedside ultrasound of the heart. We found no pericardial effusion, an enlarged Right ventricle and a fair ejection fraction. The patient has a history of pulmonary hypertension. Departure - Departure Disposition: ED Place in Observation Clinical Impression: Pulmonary hypertension, Heart failure, diastolic, acute on chronic
[2019-04-14 14:07] LABS: BILIRUBIN,TOTAL 1.4 mg/dL (0.2-1.0); CALCIUM 9.3 mg/dL (8.5-10.3); CREATININE 1.4 mg/dL (0.4-1.0); TOTAL PROTEIN 7.9 g/dL (6.7-8.2)
--- NOTE | 2019-04-14 14:07 | XRAY Report ---
Reason: SOA, hypoxia Procedure Date: 04/14/2019 Accession Number: [id number] / [id number] Procedure: XR - Chest 2 View X-Ray CPT Code: 90225 FULL RESULT: EXAM: CHEST RADIOGRAPHY EXAM DATE: 04/14/2019 01:30 PM. CLINICAL HISTORY: SOA, hypoxia. COMPARISON: CHEST 2 VIEW 01/16/2018 9:59 AM. TECHNIQUE: 2 views. FINDINGS: Lungs/Pleura: There are mildly increased interstitial densities in the lateral right lung and left lung base. No pleural effusion. Mediastinum: Heart size is normal. There is mild to moderate atherosclerotic aortic calcification. Trachea is midline. Other: None. IMPRESSION: 1. No consolidative pneumonia or pleural effusion. 2. Mildly increased reticular fine interstitial densities right mid lung and left lung base, could represent minimal to mild edema or pneumonitis. RADIA
[2019-04-14 14:41] LABS: BILIRUBIN,URINE NEGATIVE (NEGATIVE); GLUCOSE, URINE (UA) NEGATIVE (NEGATIVE); KETONES,URINE (UA) NEGATIVE (NEGATIVE); LEUKOCYTE ESTERASE, URINE NEGATIVE (NEGATIVE); NITRITE,URINE NEGATIVE (NEGATIVE); OCCULT BLOOD,URINE SMALL (NEGATIVE); PH,URINE 5.5 PH (5.0-7.5); PROTEIN,URINE NEGATIVE (NEGATIVE); UROBILINOGEN,URINE 0.2 (NORMAL) E.U./dL (NORMAL)
[2019-04-14 14:42] LABS: DIGOXIN < 0.2 ng/mL
[2019-04-14 14:43] LABS: CLARITY,URINE CLEAR (CLEAR)
[2019-04-14 14:54] LABS: BACTERIA,URINE None Seen /HPF (None Seen); SQUAMOUS EPITHELIAL CELL,UR FEW Squamous (<= Few)
[2019-04-14 17:20] LABS: INR 2.3 (0.8-1.2); PT - PROTHROMBIN TIME 25.4 secs (9.9-12.6)
[2019-04-14] MEDS ORDERED: SODIUM CHLORIDE FLUSH 0.9% 10 ML SYRINGE IVP PRN (17:35)
[2019-04-14] MEDS ORDERED: MORPHINE 2 MG/ML CARPUJECT IVP PRN (17:35)
[2019-04-14] MEDS ORDERED: ACETAMINOPHEN 325 MG TABLET PO PRN (17:35)
[2019-04-14] MEDS ORDERED: PROCHLORPERAZINE 10 MG/2 ML VIAL IVP PRN (17:35)
[2019-04-14] MEDS ORDERED: CETIRIZINE 10 MG TABLET PO PRN (17:39)
[2019-04-14] MEDS ORDERED: LEVALBUTEROL 1.25 MG/3 ML NEB INH STA (17:49)
--- NOTE | 2019-04-14 20:26 | HISTORY & PHYSICAL EXAMINATION ---
DATE OF SERVICE: 04/14/2019 Physician: Melodie Neal MD HISTORY OF PRESENT ILLNESS: This is an 88-year-old white female who lives alone; has a history of pulmonary hypertension, and possibly COPD, however, she denies this; paroxysmal atrial fibrillation and flutter, prior clot the right arm (unknown if this was arterial or DVT), prior falls and GI bleed, history of irritable bowel syndrome on methotrexate, hypertension, hypothyroidism, CKD, and macrocytosis. Patient underwent a Watchman device placement to the left atrial appendage approximately 8 days ago and is currently on Coumadin, but the plan is to eventually be able to stop that after 45 days. Patient has had admissions here for dyspnea on exertion, which were felt to be from diastolic heart failure, her pulmonary hypertension and COPD. She has required home oxygen since she desaturated during a 2017 admission, but she states that she did not like using it and "returned it." Patient presents with a 2-week history of worsening dyspnea on exertion, but no PND or orthopnea. She has been compliant with her medications. She does not describe any chest pain. She cannot tell when she is in atrial fibrillation or flutter. She drove herself to the emergency room and was noted to be tachycardic after walking with heart rates of 120 and also very tachypneic with walking just to the bathroom, but at rest her heart rate settled into the 80s, in atrial flutter. She was put on 2 L oxygen nasal cannula immediately, unknown what her saturation was on room air. The emergency room evaluation noted that she had skin tenting and a collapsing inferior vena cava by bedside ultrasoind, and she received 500 mL of fluid. The emergency room doctor called the covering Development Analyst, who advised that she be admitted for treatment with diuresis. Patient first did not want to stay, but agrees to stay overnight; therefore, is being admitted in Observation status. PAST MEDICAL HISTORY 1. Hypertension. 2. Possibly COPD. 3. LV diastolic dysfunction (heart failure with preserved ejection fraction). 4. Paroxysmal atrial fibrillation and flutter. 5. CKD. 6. Macrocytosis. 7. Hypothyroidism. 8. Hypertension. 9. Irritable bowel syndrome with intermittent diarrhea, on methotrexate. 10. History of gout, treated with colchicine and allopurinol in the past. ALLERGIES: NONE. MEDICATIONS 1. Simvastatin 40 mg every night. 2. Multivitamin daily. 3. Methotrexate 5 mg once a week. 4. Levothyroxine 50 mcg daily. 5. Krill oil daily. 6. Lasix either 40 or 80 mg daily p.r.n. edema. 7. Tylenol p.r.n. pain. 8. Warfarin 1 mg daily. 9. Toprol-XL 100 mg t.i.d. 10. Pepcid 20 mg daily. 11. Nexium 40 mg daily. 12. Colchicine 0.6 mg daily p.r.n. gouty attack. 13. Zyrtec 10 mg daily p.r.n. allergies. REVIEW OF SYSTEMS: Patient denies any chest pain ever and denies any history of coronary artery disease. It is not known if she has ever had a stress test. Patient denies that she has COPD and is not followed by a Bowling Alley Mechanic. She is an ex-smoker, quit over 20 years ago. Comprehensive review of systems was performed, and the pertinent positives are listed in the rest are negative. FAMILY HISTORY: Noncontributory. SOCIAL HISTORY: She is a remote ex-smoker, drinks alcohol intermittently 1-4 alcoholic drinks a day. No illicit drug use. She lives alone, is able to drive. PHYSICAL EXAMINATION GENERAL: Elderly white female. She is in no distress at rest. VITAL SIGNS: Blood pressure 127/80, heart rate 45-120 in atrial flutter, respiratory rate 18-26, O2 saturation 90%-96% on 2 L oxygen nasal cannula. HEENT: Unremarkable. Oral mucosa is moist. NECK: Without JVD in a 45-degree upright angle. CHEST: Diminished breath sounds diffusely with poor air movement, but no wheezes or rales. HEART: Sounds distant. No murmur. No RV heave or gallop. ABDOMEN: Soft, positive bowel sounds. No tenderness. EXTREMITIES: No clubbing, cyanosis or edema. NEUROLOGIC: Grossly intact. LABORATORY DATA: Sodium 136, potassium 4.4, BUN 26, creatinine 1.4 (her baseline creatinine runs between 1.3 and 1.5). Normal liver tests. Troponin 13. BNP 1352. Her usual troponins run 500-800. Lipase is normal. INR 2.3. White blood count 6.6, hemoglobin 13.6 with MCV of 107, RDW of 18, platelet count 260. Her digoxin serum level is not measurable. Urinalysis has small occult blood and no bacteria. IMAGING: Chest x-ray showed fine interstitial changes, either consistent with pneumonitis or mild edema. EKG: Atrial flutter with variable block, the ventricular rate is 52, left bundle branch block. A bedside portable "quick sophie" Echo, done by the emergency room doctor, showed very large atria bilaterally, dilated right ventricle with poor RV function, and normal LV size and wall thickness with low normal LVEF. There was no Doppler done. IMPRESSION/DIAGNOSES 1. Dyspnea on exertion, which is likely multifactorial. 2. Pulmonary hypertension. 3. COPD. 4. Chronic diastolic heart failure. 5. 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 6. Abnormal CXR; possible lung infiltrate. 7. Paroxysmal atrial fibrillation, with a recent Watchman [place] device placed. 8. Chronic kidney disease, stage 3. 9. Macrocytosis. 10. Hypothyroidism. 11. Irritable bowel syndrome, on methotrexate. 12. History of hypertension. 13. History of gout. PLAN: Place patient in Observation. Start telemetry. Recheck a chest x-ray tomorrow. Obtain an Echo. Start gentle diuresis as per the Cardiology recommendations. Check oximetry on room air. Possibly home oxygen will again be needed. Try Xopenex for treating potential reactive airway disease. Check B12 and folate levels because of the high MCV. Follow her BNP daily. Check a TSH on her thyroid treatment and check troponins x3. CODE STATUS: DNR. DEEP VENOUS THROMBOSIS PROPHYLAXIS: Pharmaceutical. ATTESTATION: Patient is expected to be discharged or transferred to another facility within 96 hours: Yes. cc: Chele Easley MD TD: 04/14/2019 18:11 MTDD
[2019-04-14] MEDS: SODIUM CHLORIDE FLUSH 0.9% 10 ML SYRINGE IVP SCH (23:43)
[2019-04-15 05:41] LABS: INR 1.8 (0.8-1.2); PT - PROTHROMBIN TIME 19.9 secs (9.9-12.6)
[2019-04-15 05:46] LABS: CALCIUM 8.9 mg/dL (8.5-10.3); CREATININE 1.1 mg/dL (0.4-1.0); MAGNESIUM 1.7 mg/dL (1.7-2.8)
[2019-04-15 06:18] LABS: THYROID STIMULATING HORMONE 2.57 uIU/mL (0.34-5.60)
[2019-04-15] MEDS ORDERED: LEVOTHYROXINE 25 MCG TABLET PO SCH (07:00)
[2019-04-15 07:34] LABS: FOLATE > 49.60 ng/mL (5.90 - >24.8)
[2019-04-15] MEDS ORDERED: FUROSEMIDE 40 MG TABLET PO SCH ×2 (08:00→09:00)
[2019-04-15] MEDS: SODIUM CHLORIDE FLUSH 0.9% 10 ML SYRINGE IVP SCH (08:47)
[2019-04-15] MEDS ORDERED: FAMOTIDINE 20 MG TABLET PO SCH (09:00)
[2019-04-15] MEDS ORDERED: ALLOPURINOL 100 MG TABLET PO SCH (09:00)
[2019-04-15] MEDS ORDERED: POLYETHYLENE GLYCOL 3350 17 GM PACKET PO SCH (09:00)
[2019-04-15] MEDS ORDERED: MULTIVITAMIN TABLET PO SCH (09:00)
--- NOTE | 2019-04-15 09:36 | XRAY Report ---
Reason: F/U CHF vs infiltrate vs emphysema Procedure Date: 04/15/2019 Accession Number: [id number] / [id number] Procedure: XR - Chest 1 View X-Ray CPT Code: 06971 FULL RESULT: EXAM: CHEST RADIOGRAPHY EXAM DATE: 04/15/2019 07:30 AM. CLINICAL HISTORY: Follow up CHF versus infiltrate versus emphysema. COMPARISON: CHEST 2 VIEW 04/14/2019 1:28 PM CHEST W/O 02/25/2017 9:32 PM. TECHNIQUE: 1 view. FINDINGS: Lungs/Pleura: There is mild interstitial pulmonary edema pattern; pattern is asymmetric given the presence of underlying emphysema/interstitial changes noted in the right upper lung and left lower lung. No significant pleural effusion. No extra ventilatory air. Mediastinum: Borderline cardiomegaly. Mediastinal and hilar contours are within expected limits. Other: Stable degenerative changes of the right shoulder. IMPRESSION: Mild interstitial pulmonary edema pattern superimposing upon underlying emphysema/interstitial disease. RADIA
[2019-04-15] MEDS ORDERED: WARFARIN 1 MG TABLET PO SCH (10:35)
[2019-04-15] MEDS ORDERED: METOPROLOL TARTRATE 50 MG TABLET PO SCH (10:35)
--- NOTE | 2019-04-15 10:39 | Discharge Plan ---
Discharge Plan Problem Reviewed?: Yes Disposition: Home, Self Care Condition: Poor Diet: Regular Activity Restrictions: Activity as Tolerated Shower Restrictions: No Driving Restrictions: No Instruction Topics: Emphysema Health Concerns: You were here to manage the severe shortness of breath with activity. Your chest XRay shows that you have COPD (emphysema), probably from your prior smoking. Also, your Echo tests have shown that you have pulmonary hypertension (high pressure in your lungs), which may need special pills for treating. Plan of Treatment: Resume all your medications, there will be no changes at this time. The Lasix dose should be 80 mg daily! Oxygen home therapy is being re-ordered for you. Use it all the time or especially when you walk! You should have a Pulmonology specialist evaluation for official breathing tests (called PFTs: Pulmonary Function Test), to see if you need a special puffer or other lung therapy. Your PCP needs to give you a referral to a Child Watch Attendant. Care Goals: Improved breathing is the desired goal. Assessment: The patient understood the recommendations. Additional Instructions or Follow Up instructions: You should see your PCP in hospital follow-up in the next 7-10 days and get a referral to a Child Watch Attendant. Keep the appointments with your Bellstand Attendant too. No Smoking: If you smoke, Please STOP! Call for help. Follow-up with: Chele Easley MD [Primary Care Provider] -
[2019-04-15 11:39] VITALS: BP 118/89
--- NOTE | 2019-04-15 13:41 | PROVIDER PROGRESS NOTE ---
Assessment/Plan - Problem List (1) Dyspnea Qualifiers: Dyspnea type: dyspnea on exertion Assessment/Plan: This is felt to be multi-factorial: from COPD, pulm HTN, diastolic heart failure and intermittent tachycardia. (2) Pulmonary hypertension Assessment/Plan: She needs a Inpatient Services Rn for full evaluation: PFTs, new Echo for measuring PA pressure, eand any other work-up, since she claims she has never had any of that. She was advised to get a referral to a Inpatient Services Rn (3) COPD (chronic obstructive pulmonary disease) Assessment/Plan: Her CXR today and yesterday is consistent with COPD. There was no improvement with a Xoponex inhalation trial. He was evaluated for oxygen needs: She was hypoxic at rest with room air saturation of 89%. With ambulation on room air, she was even more hypoxic with oxygen saturation of 85%. During exertion, on 1 L, her oxygen saturation isiah to 90% and finally with 2 L of oxygen per nasal cannula, her oxygen saturation improved to 92%. I am ordering home O2 continuously to be used at 2 L/min to help treat COPD and pulmonary hypertension (4) Chronic diastolic heart failure Assessment/Plan: We cannot obtain an Echo today since it is the weekend. Troponins did not reveal an [place]. If she has never had a stress test, this should be done as an outpatient, to rule out ischemic cause of diastolic heart failure. Controlling episodes of tachycardia will also help decrease the symptoms of diastolic heart failure. She should continue Lasix 80 mg daily. (5) Tachy-jann syndrome Assessment/Plan: We have seen heart rates as high as 130 in atrial flutter when she is just walking in her room. At rest, the heart rate is controlled in the 70-80 range. She was told to continue with her same current dose of beta-blockers and she has close follow-up with her Consumer Marketing Analyst planned. She is currently on Coumadin for a planned 45 days after the Watchman left atrial appendage device was inserted 9 days ago (6) Chronic kidney disease (CKD) Qualifiers: Chronic kidney disease stage: stage 3 (moderate) Qualified Code(s): N18.3 - Chronic kidney disease, stage 3 (moderate) Assessment/Plan: This patient has a narrow range of adequate volume status for dealing with CKD, stage III and not being volume overloaded with her diastolic heart failure. She should be on Lasix 80 mg daily, this was advised at discharge. (7) Macrocytosis without anemia Assessment/Plan: This is been a chronic problem, even from years past. (8) Hypothyroidism Assessment/Plan: Her TSH level was normal at 2.57, she was kept on her same home Synthroid dose while here. (9) History of IBS Assessment/Plan: She is on weekly MTX for this (10) HTN (hypertension) Assessment/Plan: BP was under control on her same medications while here - Current Meds Current Meds: Current Medications Generic Name Dose Route Start Last Admin Trade Name Brandinq PRN Reason Stop Dose Admin Famotidine 20 mg 04/15/19 09:00 04/15/19 08:47 Pepcid PO 20 mg DAILY RUBIO Administration Furosemide 40 mg 04/15/19 08:00 04/15/19 08:47 Lasix PO 40 mg 0800 RUBIO Administration Levothyroxine Sodium 50 mcg 04/15/19 07:00 04/15/19 06:23 Synthroid PO 50 mcg QDAC RUBIO Administration Metoprolol Tartrate 100 mg 04/15/19 10:35 04/15/19 11:35 Lopressor PO 100 mg 0600,1200,1800 RUBIO Administration Multivitamins 1 tab 04/15/19 09:00 04/15/19 08:46 Theragran PO 1 tab DAILY RUBIO Administration Polyethylene Glycol 17 gm 04/15/19 09:00 04/15/19 08:46 Miralax PO Not Given DAILY RUBIO Sodium Chloride 10 ml 04/15/19 01:00 04/15/19 08:47 Normal Saline Flush 0.9% IVP 10 ml 0100,0900,1700 RUBIO Administration Warfarin Sodium 1 mg 04/15/19 10:35 04/15/19 11:35 Coumadin PO 1 mg DAILY RUBIO Administration - Lab Result Fish Bone Diagrams: 04/14/19 13:45 04/15/19 05:24 - Diagnostic Imaging Results Diagnostic Imaging Results: Final report reviewed - Other Other Results/Comments: She is advised to see her PCP in 7 to 10 days for referral to a Inpatient Services Rn. She was advised to keep her upcoming Cardiology appointments that are already scheduled - Additional Planning My Orders: My Active Orders 04/14/19 17:35 Initiate Bronchodialator Darius [RC] .PROTOCOL Telemetry (24 Hour) [RC] Q4HR Acetaminophen [Tylenol] 650 mg PO Q4HR PRN Morphine Inj (Carpuject) [Morphine (Carpuject)] 1 mg IVP Q2HR PRN Prochlorperazine Inj [Compazine Inj] 10 mg IVP Q6HR PRN Sodium Chloride Flush 0.9% [Normal Saline Flush 0.9%] 10 ml IVP PRN PRN 04/14/19 17:36 Activity Orders [RC] Q2HR IO [RC] IOSHIFT Initiate Bowel Care Protocol [RC] .protocol Initiate Flu Vaccine Screening [RC] ONCE Initiate Line Care Protocol [RC] QSHIFT Initiate Personal Care Protoco [RC] .protocol Initiate Pneumonia Vaccine Scr [RC] ONCE Oxygen Therapy [RC] Routine Vital Signs [RC] Q4HR Code Status [OTHERS] Routine Condition of Patient [OTHERS] Routine DVT Prophylaxis [OTHERS] Routine 04/14/19 17:38 Daily Weight [RC] 0600 IV Insert [RC] .ONCE 04/14/19 17:39 Initiate Line Care Protocol [RC] QSHIFT Cetirizine [ZyrTEC] 10 mg PO DAILY PRN 04/14/19 19:00 RT [Nebulizer/MDI Tx.] [RC] BID 04/14/19 Dinner Low Sodium Diet [DIET] 04/15/19 01:00 Sodium Chloride Flush 0.9% [Normal Saline Flush 0.9%] 10 ml IVP 0100,0900,1700 04/15/19 07:00 Levothyroxine [Synthroid] 50 mcg PO QDAC 04/15/19 08:00 Furosemide [Lasix] 40 mg PO 0800 04/15/19 09:00 Famotidine [Pepcid] 20 mg PO DAILY Multivitamin [Theragran] 1 tab PO DAILY Polyethylene Glycol 3350 [Miralax] 17 gm PO DAILY 04/15/19 10:35 Metoprolol Tartrate [Lopressor] 100 mg PO 0600,1200,1800 Warfarin [Coumadin] 1 mg PO DAILY 04/15/19 11:00 Oxygen Desat. Study w/Exercise [RC] .ONCE 04/15/19 13:38 Discharge [RC] .ONCE Initiate Discharge Checklist [RC] .ONCE 04/16/19 05:00 BMP - BASIC METABOLIC PANEL [CHEM] DAILYLAB BNP - B-NATRIURETIC PEPTIDE [IAI] DAILYLAB PT WITH INR [COAG] DAILYLAB 04/20/19 17:39 Methotrexate 5 mg PO FR Plan Discussed with:: Patient Subjective - Subjective Patient Reports: Feeling Better (At rest and with walking, wearing oxygen, she feels better) Nursing Reports: Other (Heart rate still goes up to 130 briefly when she walks) Objective Vital Signs: Vital Signs - 24 hr 04/14/19 04/14/19 04/14/19 13:49 14:08 14:35 Temperature Heart Rate 54 L 45 L 73 Heart Rate [ Apical] Heart Rate [ Brachial] Respiratory 18 18 18 Rate Blood Pressure 107/91 H 106/89 H 127/83 H Blood Pressure [Right] O2 Saturation 94 97 04/14/19 04/14/19 04/14/19 15:50 16:51 18:33 Temperature Heart Rate 91 51 L 88 Heart Rate [ Apical] Heart Rate [ Brachial] Respiratory 26 H 18 20 Rate Blood Pressure 114/75 138/85 H 135/91 H Blood Pressure [Right] O2 Saturation 90 L 96 99 04/14/19 04/14/19 04/14/19 18:37 18:55 19:00 Temperature 37.3 C 36.5 C Heart Rate Heart Rate [ 58 L Apical] Heart Rate [ Brachial] Respiratory 20 Rate Blood Pressure Blood Pressure 125/68 [Right] O2 Saturation 96 04/14/19 04/15/19 04/15/19 20:25 00:00 04:44 Temperature 36.4 C L 36.9 C Heart Rate 81 Heart Rate [ 81 Apical] Heart Rate [ 79 Brachial] Respiratory 18 18 20 Rate Blood Pressure Blood Pressure 110/74 120/65 [Right] O2 Saturation 92 93 04/15/19 04/15/19 04/15/19 08:00 10:40 11:35 Temperature 37.1 C Heart Rate 130 H Heart Rate [ Apical] Heart Rate [ 72 Brachial] Respiratory 16 Rate Blood Pressure 118/89 H Blood Pressure [Right] O2 Saturation 96 04/15/19 11:39 Temperature 36.7 C Heart Rate Heart Rate [ Apical] Heart Rate [ 87 Brachial] Respiratory 16 Rate Blood Pressure Blood Pressure 118/89 H [Right] O2 Saturation 100 Oxygen O2 Source [With Activity] Room air O2 Source [Without Activity] Room air O2 Source Nasal cannula Oxygen Flow Rate 2 I&O (Last 24 Hrs): Intake and Output Totals x24h 04/13/19 04/14/19 04/15/19 23:59 23:59 23:59 Intake Total 1240 500 Output Total 125 Balance 1240 375 General: Alert, Oriented x3 HEENT: Mucous membr. moist/pink Neck: Supple, No JVD Neuro: Alert, Non Focal Cardiovascular: No murmurs Respiratory: Other (Diminished diffusely) Abdomen: Soft Extremities: No edema - Results Results: Laboratory Results WBC 6.6 x10^3/uL (4.8-10.8) 04/14/19 13:45 RBC 3.90 10^6/uL (4.20-5.40) L 04/14/19 13:45 Hgb 13.6 g/dL (12.0-16.0) 04/14/19 13:45 Hct 41.6 % (37.0-47.0) 04/14/19 13:45 MCV 106.7 fL (81.0-99.0) H 04/14/19 13:45 MCH 34.9 pg (27.0-31.0) H 04/14/19 13:45 MCHC 32.7 g/dL (32.0-36.0) 04/14/19 13:45 RDW 18.2 % (12.0-15.0) H 04/14/19 13:45 Plt Count 260 10^3/uL (130-450) 04/14/19 13:45 MPV 10.2 fL (7.9-10.8) 04/14/19 13:45 Neut # (Auto) 4.7 10^3/uL (1.5-6.6) 04/14/19 13:45 Lymph # (Auto) 0.9 10^3/uL (1.5-3.5) L 04/14/19 13:45 Centre # (Auto) 0.7 10^3/uL (0.0-1.0) 04/14/19 13:45 Eos # (Auto) 0.2 10^3/uL (0.0-0.7) 04/14/19 13:45 Baso # (Auto) 0.0 10^3/uL (0.0-0.1) 04/14/19 13:45 Absolute Nucleated RBC 0.08 x10^3/uL 04/14/19 13:45 Nucleated RBC % 1.2 /100WBC 04/14/19 13:45 PT 19.9 secs (9.9-12.6) H 04/15/19 05:24 INR 1.8 (0.8-1.2) H 04/15/19 05:24 Sodium 140 mmol/L (135-145) 04/15/19 05:24 Potassium 4.0 mmol/L (3.5-5.0) 04/15/19 05:24 Chloride 108 mmol/L (101-111) 04/15/19 05:24 Carbon Dioxide 21 mmol/L (21-32) 04/15/19 05:24 Anion Gap 11.0 (6-13) 04/15/19 05:24 BUN 21 mg/dL (6-20) H 04/15/19 05:24 Creatinine 1.1 mg/dL (0.4-1.0) H 04/15/19 05:24 Estimated GFR (MDRD) 47 (>89) L 04/15/19 05:24 Glucose 92 mg/dL (70-100) 04/15/19 05:24 Calcium 8.9 mg/dL (8.5-10.3) 04/15/19 05:24 Magnesium 1.7 mg/dL (1.7-2.8) 04/15/19 05:24 Total Bilirubin 1.4 mg/dL (0.2-1.0) H 04/14/19 13:45 AST 30 IU/L (10-42) 04/14/19 13:45 ALT 15 IU/L (10-60) 04/14/19 13:45 Alkaline Phosphatase 116 IU/L (42-121) 04/14/19 13:45 Troponin I High Sens 16.1 pg/mL (2.3-14.8) H* 04/14/19 18:25 B-Natriuretic Peptide 1262 pg/mL (5-100) H 04/15/19 05:24 Total Protein 7.9 g/dL (6.7-8.2) 04/14/19 13:45 Albumin 4.0 g/dL (3.2-5.5) 04/14/19 13:45 Globulin 3.9 g/dL (2.1-4.2) 04/14/19 13:45 Albumin/Globulin Ratio 1.0 (1.0-2.2) 04/14/19 13:45 Lipase 37 U/L (22-51) 04/14/19 13:45 Vitamin B12 317 pg/mL (180-914) 04/15/19 05:24 Folate > 49.60 ng/mL (5.90 - >24.8) 04/15/19 05:24 TSH 2.57 uIU/mL (0.34-5.60) 04/15/19 05:24 Urine Color YELLOW 04/14/19 14:25 Urine Clarity CLEAR (CLEAR) 04/14/19 14:25 Urine pH 5.5 PH (5.0-7.5) 04/14/19 14:25 Ur Specific [place] 1.010 (1.002-1.030) 04/14/19 14:25 Urine Protein NEGATIVE mg/dL (NEGATIVE) 04/14/19 14:25 Urine Glucose (UA) NEGATIVE mg/dL (NEGATIVE) 04/14/19 14:25 Urine Ketones NEGATIVE mg/dL (NEGATIVE) 04/14/19 14:25 Urine Occult Blood SMALL (NEGATIVE) H 04/14/19 14:25 Urine Nitrite NEGATIVE (NEGATIVE) 04/14/19 14:25 Urine Bilirubin NEGATIVE (NEGATIVE) 04/14/19 14:25 Urine Urobilinogen 0.2 (NORMAL) E.U./dL (NORMAL) 04/14/19 14:25 Ur Leukocyte Esterase NEGATIVE (NEGATIVE) 04/14/19 14:25 Urine RBC 6-10 /HPF (0-5) H 04/14/19 14:25 Urine WBC 0-3 /HPF (0-5) 04/14/19 14:25 Ur Squamous Epith Cells FEW Squamous (<= Few) 04/14/19 14:25 Urine Bacteria None Seen /HPF (None Seen) 04/14/19 14:25 Ur Microscopic Review INDICATED 04/14/19 14:25 Urine Culture Comments NOT INDICATED 04/14/19 14:25 Last Dose Date Unknown 04/14/19 13:45 Last Dose Time Unknown 04/14/19 13:45 Digoxin < 0.2 ng/mL 04/14/19 13:45
[2019-04-20] MEDS ORDERED: METHOTREXATE 2.5 MG TABLET PO SCH (17:39)
== END 2019-04-15 15:45 | disposition home or self-care (01) ==
LOC: ED 13:12 → MS2 17:35
PROVIDERS: ADMIT Internal Medicine; ATTEND Internal Medicine
DX: J43.9 Emphysema, unspecified (principal); I27.20 Pulmonary hypertension, unspecified; I50.32 Chronic diastolic (congestive) heart failure; I13.0 Hypertensive heart and chronic kidney disease with heart failure and stage 1 through stage 4 chronic kidney disease, or unspecified chronic kidney disease; N18.3 Chronic kidney disease, stage 3 (moderate); I49.5 Sick sinus syndrome; Z87.891 Personal history of nicotine dependence; Z95.818 Presence of other cardiac implants and grafts; Z99.81 Dependence on supplemental oxygen; D75.89 Other specified diseases of blood and blood-forming organs; E03.9 Hypothyroidism, unspecified; K58.9 Irritable bowel syndrome, unspecified; I48.0 Paroxysmal atrial fibrillation; I48.92 Unspecified atrial flutter; Z79.01 Long term (current) use of anticoagulants; Z86.718 Personal history of other venous thrombosis and embolism; Z91.81 History of falling; Z87.19 Personal history of other diseases of the digestive system; M10.9 Gout, unspecified; M19.90 Unspecified osteoarthritis, unspecified site; Z96.649 Presence of unspecified artificial hip joint; E86.0 Dehydration
CPT/HCPCS: 36415; 71045; 71046; 80048; 80053; 80162; 81001; 82607; 82746; 83690; 83735; 83880; 84443; 84484; 85025; 85610; 93005; 94640; 94761; 96360; 96361; 99284; 99285; A9270; G0378; 81003; 87086

== ENCOUNTER 2019-04-23 09:53 | Outpatient (CLI) | payer MEDICARE, BC | END 2019-04-23 09:54 | disposition home or self-care (01) | LOC: LAB 09:53 | PROVIDERS: ATTEND Internal Medicine | DX: I48.91 Unspecified atrial fibrillation (principal) | CPT/HCPCS: 85610 ==

== ENCOUNTER 2019-05-07 10:16 | Outpatient (CLI) | payer MEDICARE, BC | END 2019-05-07 10:17 | disposition home or self-care (01) | LOC: LAB 10:16 | PROVIDERS: ATTEND Internal Medicine | DX: I48.91 Unspecified atrial fibrillation (principal) | CPT/HCPCS: 85610 ==

== ENCOUNTER 2019-05-09 12:07 | Emergency (ER) | payer MEDICARE, BC ==
--- NOTE | 2019-05-09 12:57 | ED Physician Documentation ---
PD HPI DYSPNEA - Stated complaint Stated Complaint: SOA - Chief complaint Chief Complaint: Resp - History obtained from History obtained from: Patient - History of Present Illness Timing - onset: Other (88-year-old woman on warfarin for atrial fibrillation. Recent history of watchman procedure. But still on the warfarin. Also a history of CHF and COPD. She was sent from her doctor's office for shortness of breath and hemoptysis. The shortness of breath has been going on for a month. She does wear oxygen at home. She is had slight hemoptysis for the last few days but her physician thought it was from epistaxis. 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 HAND: Other : None HEENT: Chronic sinusitis Psych: None Musculoskeletal: Osteoarthritis Derm: None - Past Surgical History Past Surgical History: Yes Ortho: Hip replacement, Carpal Tunnel surgery Neuro: Other - Present Medications Home Medications: Ambulatory Orders Medication Instructions Recorded Confirmed Methotrexate 2.5 mg PO FR@0600,1800 09/20/14 04/15/19 Simvastatin 40 mg PO QPM 09/20/14 04/15/19 Levothyroxine Sodium [Synthroid] 50 mcg PO QDAC 02/26/17 04/15/19 Acetaminophen [Tylenol] 650 mg PO PRN PRN 01/16/18 04/15/19 Esomeprazole Magnesium [Nexium] 40 mg PO QDAC 01/16/18 04/15/19 Krill/[place]-3/Dha/Epa/Lipids 359 mg PO DAILY 01/16/18 04/15/19 [Krill Oil 350 mg Softgel] Multivitamin [Theragran] 1 each PO DAILY 01/16/18 04/15/19 Warfarin [Coumadin] 1 mg PO DAILY 04/14/19 04/15/19 Furosemide 80 mg PO DAILY #0 04/15/19 04/15/19 Loratadine 10 mg PO BID PRN 04/15/19 04/15/19 Metoprolol Tartrate 100 mg PO 0600,1200,1800 04/15/19 04/15/19 Doxycycline Hyclate 100 mg PO BID #20 capsule 05/09/19 predniSONE [Deltasone] 20 mg PO [id number] #21 tab 05/09/19 - Allergies Allergies/Adverse Reactions: Allergies Allergy/AdvReac Type Severity Reaction Status Date / Time No Known Drug Allergies Allergy Verified 05/09/19 12:18 - Social History Does the pt smoke?: No Smoking Status: Never smoker Does the pt drink ETOH?: Yes Does the pt have substance abuse?: No - Immunizations Immunizations are current?: Yes - POLST Patient has POLST: No POLST Status: DNR PD ED PE NORMAL - Vitals Vital signs reviewed: Yes - General General: Alert and oriented X 3, No acute distress - HEENT HEENT: PERRL, EOMI - Neck Neck: Supple, no meningeal sign, No bony TTP, No JVD - Cardiac Cardiac: Other (Irregularly irregular without murmur) - Respiratory Respiratory: Other (Nonlabored. No rales. A few fine crackles at the bases and diminished at the left upper lobe.) - Abdomen Abdomen: Non tender - Back Back: No CVA TTP, No spinal TTP - Derm Derm: No rash - Neuro Neuro: Alert and oriented X 3, Normal speech Results - Vitals Vitals: Vital Signs - 24 hr 05/09/19 05/09/19 12:19 14:23 Temperature 36.4 C L 36.8 C Heart Rate 74 59 L Respiratory 22 24 Rate Blood Pressure 127/71 125/70 O2 Saturation 98 97 Oxygen O2 Source [] Room air O2 Source [] Room air O2 Source Room air - Labs Labs: Laboratory Tests 05/09/19 05/09/19 05/09/19 13:22 13:22 13:22 WBC 7.8 RBC 4.04 L Hgb 14.4 Hct 44.4 MCV 109.9 H MCH 35.6 H MCHC 32.4 RDW 17.1 H Plt Count 246 MPV 9.4 Neut # (Auto) 6.3 Lymph # (Auto) 0.7 L [place] # (Auto) 0.6 Eos # (Auto) 0.2 Baso # (Auto) 0.0 Absolute Nucleated RBC 0.02 Nucleated RBC % 0.3 PT 27.8 H INR 2.6 H Sodium 138 Potassium 4.5 Chloride 100 L Carbon Dioxide 27 Anion Gap 11.0 BUN 30 H Creatinine 1.2 H Estimated GFR (MDRD) 43 L Glucose 100 Calcium 9.5 Total Bilirubin 1.5 H AST 32 ALT 23 Alkaline Phosphatase 105 Total Protein 7.4 Albumin 4.0 Globulin 3.4 Albumin/Globulin Ratio 1.2 Lipase 42 - Rads (name of study) 2v chest Radiology: EMP read contemporaneously (Decreasing interstitial opacity in the right upper lobe, residual patchy and reticular opacities persist.) PD MEDICAL DECISION MAKING - ED course ED course: 88-year-old woman with history of CHF and COPD presents with shortness of breath and some hemoptysis. Not much concern for PE given that she is therapeutic on her warfarin. No evidence of CHF on exam or x-ray. Will treat for COPD exacerbation. Departure - Departure Disposition: 01 Home, Self Care Clinical Impression: Atrial fibrillation Qualifiers: Atrial fibrillation type: unspecified Qualified Code(s): I48.91 - Unspecified atrial fibrillation COPD (chronic obstructive pulmonary disease) Qualifiers: COPD type: COPD with acute exacerbation Qualified Code(s): J44.1 - Chronic obstructive pulmonary disease with (acute) exacerbation Condition: Good Record reviewed to determine appropriate education?: Yes Instructions: COPD Dc Prescriptions: Doxycycline Hyclate 100 mg PO BID #20 capsule predniSONE [Deltasone] 20 mg PO [id number] #21 tab Comments: Call your doctor to arrange a follow-up appointment, make the next available appointment. In the interim, return anytime if worse or if new symptoms develop.
[2019-05-09 13:35] LABS: BASOPHILS % (AUTO) 0.5 %; EOSINOPHILS # (AUTO) 0.2 10^3/uL (0.0-0.7); EOSINOPHILS % (AUTO) 2.6 %; HGB - HEMOGLOBIN 14.4 g/dL (12.0-16.0); LYMPHOCYTES # (AUTO) 0.7 10^3/uL (1.5-3.5); LYMPHOCYTES % (AUTO) 8.5 %; MEAN CORPUSCULAR HEMOGLOBIN 35.6 pg (27.0-31.0); MEAN CORPUSCULAR HGB CONC 32.4 g/dL (32.0-36.0); MEAN CORPUSCULAR VOLUME 109.9 fL (81.0-99.0); MEAN PLATELET VOLUME 9.4 fL (7.9-10.8); MONOCYTES # (AUTO) 0.6 10^3/uL (0.0-1.0); MONOCYTES % (AUTO) 7.5 %; NEUTROPHILS # (AUTO) 6.3 10^3/uL (1.5-6.6); NEUTROPHILS % (AUTO) 80.4 %; PLT - PLATELET COUNT 246 10^3/uL (130-450); RED BLOOD COUNT 4.04 10^6/uL (4.20-5.40); RED CELL DISTRIBUTION WIDTH 17.1 % (12.0-15.0); WHITE BLOOD COUNT 7.8 x10^3/uL (4.8-10.8)
--- NOTE | 2019-05-09 13:45 | XRAY Report ---
Reason: cough dyspnea Procedure Date: 05/09/2019 Accession Number: [id number] / [id number] Procedure: XR - Chest 2 View X-Ray CPT Code: 14917 FULL RESULT: EXAM: CHEST RADIOGRAPHY EXAM DATE: 05/09/2019 01:17 PM. CLINICAL HISTORY: Cough dyspnea. COMPARISON: CHEST 1 VIEW 04/15/2019 7:15 AM. TECHNIQUE: 2 views. FINDINGS: Lungs/Pleura: Interval decrease of interstitial opacities in the right upper lobe. Basilar reticular opacities are unchanged. There is residual irregular peripheral linear density in the lateral right midlung. There is no new airspace disease. No pleural effusion. Mediastinum: Heart size is normal. There is mild to moderate tortuosity and atherosclerosis of the aorta. Other: None. IMPRESSION: 1. Decreasing interstitial opacity in the right upper lobe since 04/15/2019. Residual patchy and reticular opacities persist. RADIA
[2019-05-09 13:47] LABS: ALBUMIN/GLOBULIN RATIO 1.2 (1.0-2.2); BILIRUBIN,TOTAL 1.5 mg/dL (0.2-1.0); CALCIUM 9.5 mg/dL (8.5-10.3); CREATININE 1.2 mg/dL (0.4-1.0); TOTAL PROTEIN 7.4 g/dL (6.7-8.2)
[2019-05-09 13:52] LABS: INR 2.6 (0.8-1.2); PT - PROTHROMBIN TIME 27.8 secs (9.9-12.6)
[2019-05-09 14:24] VITALS: BP 125/70
== END 2019-05-09 14:44 | disposition home or self-care (01) ==
LOC: ED 12:07
DX: J44.1 Chronic obstructive pulmonary disease with (acute) exacerbation (principal); I11.0 Hypertensive heart disease with heart failure; I50.9 Heart failure, unspecified; I48.91 Unspecified atrial fibrillation; Z79.01 Long term (current) use of anticoagulants; Z99.81 Dependence on supplemental oxygen; Z66 Do not resuscitate
CPT/HCPCS: 36415; 71046; 80053; 83690; 85025; 85610; 99283; 99284

== ENCOUNTER 2019-05-22 12:55 | Outpatient (CLI) | payer MEDICARE, BC | END 2019-05-22 12:56 | disposition E | LOC: EMS 12:55 | PROVIDERS: ATTEND Surgery ==